=== PATIENT | female | born 1990 | race Caucasian/White ===

== ENCOUNTER → 2018-02-13 10:08 | Outpatient (CLI) | payer MEDICAID, SELFPAY ==
[2018-02-13 10:53] LABS: Hematocrit 35.2 % (37-47); Hemoglobin 11.7 g/dl (12.0-15.0); Mean Corp Hgb Conc 33.2 g/gl (32-36); Mean Corpuscular Hgb 31.6 pg (27.0-32.0); Mean Corpuscular Volume 95.1 fL (81-99); Mean Platelet Vol. 10.3 fl (6.2-12.0); Platelet Count 264 K/mm3 (150-450); RBC Distribution Width CV 14.1 % (11.6-14.6); RBC Distribution Width SD 46.7 fl (35.1-43.9); White Blood Count 10.4 K/mm3 (4.4-11.0)
[2018-02-13 11:00] LABS: Scan Indicated on CBC? Y/N NO
[2018-02-13 11:15] LABS: Glucose Challenge Gest 1H 50g 120 mg/dL (70-140)
--- OUTSIDE RECORDS SUMMARY | 2018-04-01 01:07 | XMS RPT_ITS ---
:1990 Author Organization OHIP Care Team Providers Name Role Phone KANE MOREIRA (RES) Attending Unavailable SAMSON, EARLINE E Admitting Unavailable SAMSON, EARLINE E Attending Unavailable SAMSON, EARLINE E Referring Unavailable SAMSON, EARLINE E Admitting Unavailable SAMSON, EARLINE E Attending Unavailable SAMSON, EARLINE E Admitting Unavailable SAMSON, EARLINE E Attending Unavailable MONTOYA, KIZZY Attending Unavailable PROVIDER, UNKNOWN Attending Unavailable Kiki Victoria Attending Unavailable JOSE ALBERTO, NERISSA (CLINICAL RESEARCH MANAGEMENT ASSOCIATE) Attending Unavailable MERHEB, BIRDIE Referring Unavailable JOSE ALBERTO, NERISSA (CLINICAL RESEARCH MANAGEMENT ASSOCIATE) Attending Unavailable JOSE ALBERTO, NERISSA (CLINICAL RESEARCH MANAGEMENT ASSOCIATE) Referring Unavailable JOSE ALBERTO, NERISSA (CLINICAL RESEARCH MANAGEMENT ASSOCIATE) Attending Unavailable JOSE ALBERTO, NERISSA (CLINICAL RESEARCH MANAGEMENT ASSOCIATE) Referring Unavailable JOSE ALBERTO, NERISSA (CLINICAL RESEARCH MANAGEMENT ASSOCIATE) Attending Unavailable SAMSON, EARLINE E Attending Unavailable SAMSON, EARLINE E Referring Unavailable JOSE ALBERTO, NERISSA (CLINICAL RESEARCH MANAGEMENT ASSOCIATE) Attending Unavailable SAMSON, EARLINE E Referring Unavailable SAMSON, EARLINE E Attending Unavailable JOSE ALBERTO, NERISSA (CLINICAL RESEARCH MANAGEMENT ASSOCIATE) Referring Unavailable KANE KERN Attending Unavailable KANE KERN Referring Unavailable JOSE ALBERTO, NERISSA (CLINICAL RESEARCH MANAGEMENT ASSOCIATE) Attending Unavailable JOSE ALBERTO, NERISSA (CLINICAL RESEARCH MANAGEMENT ASSOCIATE) Referring Unavailable ROJAS RENNER Attending Unavailable SAMSON, EARLINE E Attending Unavailable HARDIK, ZAFRA MARQUIS Referring Unavailable HARDIK, ZAFAR Primary Care Unavailable MD KANE MOREIRA Attending Unavailable MONTOYA, KIZZY Attending Unavailable IMCA Referring Unavailable ZAFAR DYE Primary Care Unavailable MONTOYA, KIZZY Attending Unavailable IMCA Referring Unavailable ZAFAR DYE Primary Care Unavailable PROBLEMS PROBLEMS DATE TYPE CONDITION / CODE ATTENDING STATUS SOURCE 02/13/2018 Unknown Z34.82 - Encounter Kiki Victoria Active [facility] for supervision of [facility] other normal Hospital , second Repository trimester / Z34.82(ICD-10) 11/22/2017 Active Other specified Unknown Active [facility] related [facility] Other conditions, second [place] trimester / Repository O26.892(ICD-10) 11/22/2017 Active Unspecified Unknown Active [facility] abdominal pain / Clinic Other R10.9(ICD-10) [place] [facility] Repository 11/22/2017 Active Nausea / Unknown Active [facility] R11.0(ICD-10) Clinic Other [place] Repository 10/31/2017 Active Sprain of sacroiliac MONTOYA, KIZZY Active [facility] joint, initial Clinic Other encounter / [place] S33.6XXA(ICD-10) Repository 01/17/2016 Active Other intervertebral MONTOYA, KIZZY Active [facility] disc displacement, Clinic Other lumbar region / [place] M51.26(ICD-10) Repository 10/31/2017 Admitting Unknown / MONTOYA, KIZZY Active [facility] UNK(Unknown) [facility] Repository 10/10/2017 Active Encounter for NA Active [facility] supervision of other Clinic Main normal , [place] first trimester / Repository Z34.81(ICD-10) 08/12/2017 Active Anal fistula / SAMSON, Active [facility] K60.3(ICD-10) EARLINE E Clinic Other [place] Repository 07/16/2017 Active Rectal abscess / SAMSON, Active [facility] K61.1(ICD-10) EARLINE E Clinic Other [place] Repository 07/13/2017 Active Other specified KANE MOREIRA Active [facility] diseases of anus and (RES) Clinic Other rectum / [place] K62.89(ICD-10) Repository 07/13/2017 Active Bacteriuria / NA Active [facility] R82.71(ICD-10) Clinic Other [place] Repository 07/13/2017 Active Unspecified NA Active [facility] condition associated Clinic Other with female genital [place] organs and menstrual Repository cycle / N94.9(ICD-10) PROCEDURES PROCEDURES No Procedure Records FoundRESULTS RESULTS CBC-COMPLETE BLOOD CNT Collected: 02/13/2018 Status: F Source: [place] NO DIFF 10:05 AM [facility] REPOSITORY TYPE CODE TESTS RESULT OUT OF RANGE REFERENCE UNITS LAB L100.1000 4.4-11.0 K/mm3 Normal WBC 10.4 LAB L100.1200 4.2-5.4 M/mm3 Low RBC 3.70 LAB L100.1300 12.0-15.0 g/dl Low HGB 11.7 LAB L100.1400 37-47 % Low HCT 35.2 LAB L100.1500 81-99 fL Normal MCV 95.1 LAB L100.1600 27.0-32.0 pg Normal MCH 31.6 LAB L100.1700 32-36 g/gl Normal MCHC 33.2 LAB L100.1810 11.6-14.6 % Normal RDW CV 14.1 LAB L100.1820 35.1-43.9 fl High RDW SD 46.7 LAB L100.1900 150-450 K/mm3 Normal PLT 264 LAB L100.2000 6.2-12.0 fl Normal MPV 10.3 Performed By: #### L100.0500 #### [facility] [address] [place], [place], [address] GLUCOSE CHALLENGE GEST Collected: 02/13/2018 Status: F Source: [place] 1H 50G 10:05 AM [facility] TYPE CODE TESTS RESULT OUT OF RANGE REFERENCE UNITS LAB L501.0250 70-140 mg/dL Normal GLU GEST 120 50g 1H Performed By: #### L501.0250 #### [facility] [address] [place], [place], [address] TYPE AND SCREEN Collected: 02/13/2018 Status: F Source: [place] 10:05 AM [facility] Order Comment: Reason for Type AND Screen/Red Cells: TYPE CODE TESTS RESULT OUT OF RANGE REFERENCE UNITS LAB B10.0800 A Normal BLOOD TYPE GEL POSITIVE LAB B100.4000 Normal Antibody NEGATIVE Screen Performed By: #### B101.7450 #### [facility] [address] [place], [place], [address] ED PROV NOTE Observed: 11/22/2017 Status: COMPLETED Source: [place] 7:41 PM CLINIC OTHER CAMPUS REPOSITORY HNO ID: [id number] Author: Moses Rivera DO Service: Emergency Medicine Author Type: Physician Type: ED Provider Notes Filed: 11/22/2017 9:23 PM Note Text: ED Provider Note Patient Name: Saranya Malave SERVICE DATE: 11/22/17 History Patient presents with: Bleeding With : no bleeding just cramping Abdominal Pain: RUQ 27-year-old female , history of elective approximately 10 years ago at reported 15 weeks gestation presents with abdominal cramping. Pain started this morning. Pain is localized to the right periumbilical region. It is intermittent worsening and relieved by nothing. Denies fevers chills sweats. Reports nausea without vomiting. Denies change in urinary or bowel habits. Denies any abnormal vaginal bleeding. She does report white discharge throughout which is increased over the past 24?48 hours. Patient denies any concern for STD. 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 - Perirectal abscess 07/2017 - Sprain, sacroiliac BWC PAST SURGICAL HISTORY Procedure Laterality Date - CRYOSURGERY - FISTULOTOMY SUBCUT 09/01/2017 Anal Fistulectomy - PAST SURGICAL HISTORY OF 09/01/2017 Rectal exam under anesthesia and fistulotomy, FAMILY HISTORY Problem Relation Age of Onset - Diabetes Maternal Grandmother - Diabetes Maternal Grandfather - Hypertension Maternal Grandfather - Hyperlipidemia Maternal Grandfather - Stroke Maternal Grandfather - Cancer Maternal Grandfather SKIN - Cancer Paternal Grandfather LUNG - Cancer Paternal Grandmother LUNG Social History Social History Main Topics - Smoking status: Former Smoker Types: Cigarettes Quit date: 10/15/2017 - Smokeless tobacco: Never Used Comment: light smoking - Alcohol use No Comment: occ - Drug use: No - Sexual activity: Not on file ALLERGIES No Known Allergies Review of Systems Constitutional: Negative. HENT: Negative. Eyes: Negative. Respiratory: Negative. Cardiovascular: Negative. Gastrointestinal: Positive for abdominal pain. Genitourinary: Positive for vaginal discharge. Musculoskeletal: Negative. Skin: Negative. Neurological: Negative. Psychiatric/Behavioral: Negative. Physical Exam BP 101/56 Pulse 73 Temp (Src) 98.3 (Oral) Resp 14 Wt 165 lb (74.8kg) SpO2 100% LMP 08/12/2017 Physical Exam Constitutional: She is oriented to person, place, and time. She appears well-developed and well-nourished. HENT: Head: Normocephalic and atraumatic. Eyes: Pupils are equal, round, and reactive to light. Conjunctivae and EOM are normal. No scleral icterus. Neck: Normal range of motion. Neck supple. Cardiovascular: Normal rate, regular rhythm, normal heart sounds and intact distal pulses. Exam reveals no gallop and no friction rub. No murmur heard. Pulmonary/Chest: Effort normal and breath sounds normal. No respiratory distress. She has no wheezes. She has no rales. She exhibits no tenderness. Abdominal: Soft. Bowel sounds are normal. She exhibits no distension and no mass. There is no tenderness. There is no rebound and no guarding. Genitourinary: Vaginal discharge found. Genitourinary Comments: Speculum exam reveals thin white vaginal discharge. Cultures obtained. No cervical erythema or friability. Manual exam reveals closed cervical os without cervical motion tenderness or adnexal tenderness or masses Musculoskeletal: Normal range of motion. She exhibits no edema or tenderness. Lymphadenopathy: She has no cervical adenopathy. Neurological: She is alert and oriented to person, place, and time. No cranial nerve deficit. Skin: Skin is warm and dry. No rash noted. No erythema. Psychiatric: She has a normal mood and affect. Her behavior is normal. Nursing note and vitals reviewed. Diagnostic Testing ED Labs Ordered and Reviewed COMP METABOLIC PANEL - Abnormal; Notable for the following: Result Value Ref Range Protein, Total 6.1 (*) 6.3 - 8.0 g/dL Albumin 3.7 (*) 3.9 - 4.9 g/dL Bilirubin, Total <0.1 (*) 0.2 - 1.3 mg/dL BUN 6 (*) 7 - 21 mg/dL Creatinine 0.48 (*) 0.58 - 0.96 mg/dL Sodium 134 (*) 136 - 144 mmol/L Potassium 3.6 (*) 3.7 - 5.1 mmol/L All other components within normal limits CBC + DIFF - Abnormal; Notable for the following: RBC 3.74 (*) 3.90 - 5.20 m/uL Hematocrit 34.2 (*) 36.0 - 46.0 % Abs Nobles 1.00 (*) <0.87 k/uL All other components within normal limits URINALYSIS - Abnormal; Notable for the following: Hemoglobin/Blood,Ur Trace (*) Negative All other components within normal limits HCG QUANTITATIVE - Abnormal; Notable for the following: hCG Quantitative, Blood 18,421.0 (*) <5.0 mU/mL All other components within normal limits URINE MICROSCOPIC - Abnormal; Notable for the following: Bacteria Few (*) 0 /HPF All other components within normal limits LIPASE BLD GC/CHLAMYDIA DNA DET TYPE + SCREEN TRICHOMONAS PREP BACT/TRISTAN VAG GRAM STAIN ED imaging studies ordered and reviewed Transabdominal US IMPRESSION: Single living intrauterine fetus with an estimated gestational age of 15 weeks and 3 days. Procedures ED Course / Clinical Impression Clinical Impressions as of Nov 22 2118 Abdominal pain during in second trimester Nausea Hypokalemia Vaginal discharge MDM / Disposition / Plan Stable upon arrival. No evidence of acute surgical process. Pelvic exam as noted above. Cultures obtained and sent. Declined IV fluids and analgesia or anti-emetics. Blood work grossly unremarkable. Transabdominal ultrasound shows single live intrauterine fetus at 15 weeks and 3 days. No significant leukocytosis noted. Lipase normal. Liver enzymes total bilirubin alkaline phosphatase all negative. Repeat abdominal exam once again without evidence of acute surgical process. Negative Martinez sign. No pain over McBurney's point. Patient be discharged home in stable condition with instructions on supportive care including rest aggressive fluid intake and Tylenol as needed. Will follow up with EXCHANGE OPERATOR within 2-3 days and return immediately with any new worsening or concerning symptoms. Patient updated and agreeable to current plan of care. All questions answered bedside. Discharge home. MDM The patient was DISCHARGED: Counseled patient regarding lab results AND radiology results AND need for follow-up. Discharged home with verbal and written instructions. They were instructed to return as needed for persistent or worsening symptoms or any new concerns. Condition at time of disposition: stable SIGNATURE: DO Moses Mott DO 11/22/172122 ED NOTE Observed: 11/22/2017 Status: COMPLETED Source: [place] 7:41 PM CLINIC OTHER CAMPUS REPOSITORY O ID: [id number] Author: Barbara Camacho (Medic) Service: Emergency Medicine Author Type: [employer] and [employer] Location Manager Type: ED Notes Filed: 11/24/2017 12:57 PM Note Text: Emergency Services: ED Call Back Questionnaire SERVICE DATE: 11/22/2017 Are you feeling better? Yes Any questions about discharge instructions and follow-up care? No Were you able to make a follow up appointment? Yes Do you have any further questions? No Is there anything that we could have done differently to improve your ED visit? No SIGNATURE: Barbara Camacho PATIENT NAME: Saranya Malave DATE: November 24, 2017 TIME: 12:57 PM ED NOTE Observed: 11/22/2017 Status: COMPLETED Source: [place] 7:40 PM CLINIC OTHER [place] REPOSITORY HNO ID: [id number] Author: Brinda Harris) ROMAN Farrell Service: (none) Author Type: Registered Nurse Type: ED Notes Filed: 11/22/2017 7:41 PM Note Text: Discharge instructions d/w pt at bedside. Stated understanding with no further questions for this nurse. Encouraged f/u with PCP and referring doctors given. Stated understanding. Prescription(S) were given X0. ED NOTE Observed: 11/22/2017 Status: COMPLETED Source: [place] 7:23 PM [facility] OTHER [place] REPOSITORY HNO ID: [id number] Author: Brinda Farrell RN Service: (none) Author Type: Registered Nurse Type: ED Notes Filed: 11/22/2017 7:23 PM Note Text: Dr. Rivera back in at bedside with update and to discuss plan of care. Advised pt and family of results in ED, they agree and verbalize understanding. US PREG TRANSABD >14 Observed: 11/22/2017 Status: F Source: [place] 6:49 PM CLINIC OTHER [place] REPOSITORY * * *Final Report* * * DATE OF EXAM: Nov 22 2017 6:49PM TOM 1036 - US PREG TRANSABD >14 WEEKS LTD / PROCEDURE REASON: Pelvic pain, positive beta-HCG, proof operator etiol suspected * * * * Physician Interpretation * * * * PROCEDURE: US PREG TRANSABD >14 WEEKS LTD INDICATION: Pelvic pain, positive beta-HCG, proof operator etiol suspected TECHNIQUE: Multiple sonographic images of the gravid uterus were obtained and stored in a permanent archive. COMPARISON: 10/10/17. FINDINGS: There is a single living intrauterine fetus in a breech position with heart rate documented at 152 beats per minutes. The placenta is posterior. Amniotic fluid volume is within normal limits with an YANETH equal to 12.2 cm. measurements give an estimated gestational age of 15 weeks and 6 days +/- 1 week. There is been satisfactory interval growth compared to the prior study anatomic survey was not performed but no gross anomaly is evident. IMPRESSION: Single living intrauterine fetus with an estimated gestational age of 15 weeks and 3 days. Vegetable Trimmer: MICHELE Transcribe Date/Time: Nov 22 2017 6:53P Dictated by : LAINA DOHERTY MD This examination was interpreted and the report reviewed and electronically signed by: LAINA DOHERTY MD on Nov 22 2017 6:55PM EST [id number] ED NOTE Observed: 11/22/2017 Status: COMPLETED Source: [place] 6:11 PM [facility] OTHER [place] REPOSITORY HNO ID: [id number] Author: Brinda CeballosRn) ROMAN Farrell Service: (none) Author Type: Registered Nurse Type: ED Notes Filed: 11/22/2017 6:11 PM Note Text: U/S at bedside at this time. Observed: 11/22/2017 Status: F Source: [place] BACT/CAND VAG [facility] 5:32 PM [facility] REPOSITORY Smear Result - BACTERIAL VAGINOSIS RESULT: Stain results consistent with normal vaginal jonathan. No Yeast observed Rare Polymorphonuclear leukocytes Moderate Epithelial cells Performed By: #### BVCNSM #### [place] [address] Observed: 11/22/2017 Status: F Source: [place] TRICHOMONAS PREP 5:31 PM [facility] REPOSITORY Smear Result - Negative for Trichomonas vaginalis antigen Performed By: #### TRICHO #### [facility] [address] [place], [place] [id number] GC/CHLAMYDIA AMPLIF Collected: 11/22/2017 Status: F Source: [place] 5:30 PM [facility] REPOSITORY TYPE CODE TESTS RESULT OUT OF REFERENCE UNITS RANGE LAB GCCTSR GC/Chlam Amp Vaginal Source LAB GCAMPL GC Negative Amplification for Neisseria gonorrhoeae by amplification. LAB CLAMPL Chlamydia Negative Amplif for Chlamydia trachomatis by amplification. Performed By: #### GCCT #### [facility] [address] [place] [address] [place] [address] URINALYSIS Collected: 11/22/2017 Status: F Source: [place] 5:29 PM [facility] OTHER [place] REPOSITORY TYPE CODE TESTS RESULT OUT OF RANGE REFERENCE UNITS LAB UCOL Yellow Color Yellow LAB [facility] Clear Clarity Clear LAB UGLUC Negative mg/dL Glucose, Urine Negative LAB UBIL Negative Bilirubin, Urine Negative LAB UKET Negative Ketones, Urine Negative LAB USPG 1.001-1.029 Specific [place], Ur <=1.005 LAB UHGB Negative Abnormal Hemoglobin/Blood, Trace Alert Ur LAB UPH 5.0-8.0 pH 6.5 LAB UPROT Negative mg/dL Protein, Urine Negative LAB UUROB 0.2-1.0 Urobilinogen 0.2 LAB UNITR Negative Nitrites Negative LAB ULKEST Negative Leukest Negative Performed By: #### UA, UAMIC #### [facility] [address] [place] [address] URINE MICROSCOPIC Collected: 11/22/2017 Status: F Source: [place] (FOR LAB USE ONLY) 5:29 PM CLINIC OTHER CAMPUS REPOSITORY TYPE CODE TESTS RESULT OUT OF REFERENCE UNITS RANGE LAB UWBC 0-5 /HPF WBC 0-5 LAB URBC 0-3 /HPF RBC 0-3 LAB UCAST 0 /LPF Cast SEE COMMENT Result Comment: 0 LAB UBACT 0 /HPF Abnormal Bacteria Alert Few LAB UEPI /HPF Epithelial Cells SEE COMMENT Result Comment: 0-5 Squamous Epithelial Cells Performed By: #### UA, UAMIC #### [facility] [address] [place] [address] CBC AND DIFFERENTIAL Collected: 11/22/2017 Status: F Source: [place] 5:12 PM CLINIC OTHER CAMPUS REPOSITORY TYPE CODE TESTS RESULT OUT OF REFERENCE UNITS RANGE LAB WBC 3.70-11.00 k/uL WBC 10.06 LAB RBC 3.90-5.20 m/uL Low RBC 3.74 LAB HGB 11.5-15.5 g/dL Hemoglobin 11.5 LAB HCT 36.0-46.0 % Low Hematocrit 34.2 LAB MCV 80.0-100.0 fL MCV 91.4 LAB MCH 26.0-34.0 pG MCH 30.7 LAB MCHC 30.5-36.0 g/dL MCHC 33.6 LAB RDWCV 11.5-15.0 % RDW-CV 13.9 LAB PLTCT 150-400 k/uL Platelet Count 223 LAB MPV 9.0-12.7 fL MPV 9.8 LAB ANEUT % Neut% 73.2 LAB AANEUT 1.45-7.50 k/uL Abs Neut 7.36 LAB ALYMP % Lymph% 15.9 LAB AALYMP 1.00-4.00 k/uL Abs Lymph 1.60 LAB AMONO % Nobles% 9.9 LAB AAMONO <0.87 k/uL Abs Nobles High 1.00 LAB AEOS % Eosin% 0.8 LAB AAEOS <0.46 k/uL Abs Eosin 0.08 LAB ABASO % Baso% 0.2 LAB AABASO <0.11 k/uL Abs Baso <0.03 Performed By: #### CBCDIF, CMP, LIPA #### [facility] [address] [facility] [phone] COMP METABOLIC PANEL Collected: 11/22/2017 Status: F Source: [place] 5:12 PM CLINIC OTHER CAMPUS REPOSITORY TYPE CODE TESTS RESULT OUT OF REFERENCE UNITS RANGE LAB TP 6.3-8.0 g/dL Low Protein, Total 6.1 LAB ALB 3.9-4.9 g/dL Low Albumin 3.7 LAB CA 8.5-10.2 mg/dL Calcium, Total 8.9 LAB TBIL 0.2-1.3 mg/dL Low Bilirubin, Total <0.1 LAB ALKP 32-117 U/L Alkaline Phosphatase 42 LAB AST 13-35 U/L AST 14 LAB GLU 74-99 mg/dL Glucose 85 Result Comment: The [place] Diabetes Association (ADA) provides guidance for cutoff values for fasting glucose and random glucose. The ADA defines fasting as no caloric intake for at least 8 hours. Fas ting plasma glucose results between 100 to 125 mg/dL indicate increased risk for diabetes (prediabetes). Fasting plasma glucose results greater than or equal to 126 mg/dL meet the criteria for diagnosis of diabetes. In the absence of unequivocal hyperglycemia, results should be confirmed by repeat testing. In a patient with classic symptoms of hyperglycemia or hyperglycemic crisis, random plasma glucose results greater than or equal to 200 mg/dL meet the criteria for diagnosis of diabetes. Reference: Standards of Medical Care in Diabetes 2016, [place] [employer] Association. Diabetes Care. 2016.39(Suppl 1). LAB BUN 7-21 mg/dL BUN Low 6 LAB CRET 0.58-0.96 mg/dL Creatinine Low 0.48 LAB NA 136-144 mmol/L Sodium Low 134 LAB K 3.7-5.1 mmol/L Potassium Low 3.6 LAB CL 97-105 mmol/L Chloride 101 LAB CO2 22-30 mmol/L CO2 23 LAB AGAP 9-18 mmol/L Anion Gap 10 LAB ALT 7-38 U/L ALT 10 LAB GFRAA eGFR- Amer. >60 LAB GFRNAA . eGFR-All Other Races >60 Result Comment: eGFR (Estimated GFR) Units of measure: mL/min/1.73 meters squared eGFR is derived from the reexpressed MDRD Study equation using the following parameters: serum creatinine, age, gender and race. The creatinine assay has been calibrated to be traceable to IDMS. An eGFR <60 mL/min/1.73m2 for >3 months is consistent with chronic kidney disease. Refer to KDOQI guidelines for clinical interpretation. In patients with unstable renal function, e.g. those with acute kidney injury, the eGFR may not accurately reflect actual GFR. Performed By: #### CBCDIF, CMP, LIPA #### [facility] [address] LIPASE Collected: 11/22/2017 Status: F Source: [place] 5:12 PM CLINIC OTHER CAMPUS REPOSITORY TYPE CODE TESTS RESULT OUT OF REFERENCE UNITS RANGE LAB LIPA 16-61 U/L Lipase 19 Performed By: #### CBCDIF, CMP, LIPA #### [facility] [address] TYPE AND SCR,PRENATL Collected: 11/22/2017 Status: F Source: [place] 5:12 PM CLINIC OTHER CAMPUS REPOSITORY TYPE CODE TESTS RESULT OUT OF REFERENCE UNITS RANGE LAB %ABR A ABO/RH(D) POSITIVE LAB % Antibody NEG Screen Performed By: #### TSPN #### [facility] [address] [place], [place] [phone] ED NOTE Observed: 11/22/2017 Status: COMPLETED Source: [place] 4:57 PM CLINIC OTHER CAMPUS REPOSITORY HNO ID: [id number] Author: Brinda CeballosRn) Jami, RN Service: (none) Author Type: Registered Nurse Type: ED Notes Filed: 11/22/2017 4:57 PM Note Text: Dr. Rivera at bedside at this time. ED NOTE Observed: 11/22/2017 Status: COMPLETED Source: [place] 4:38 PM CLINIC OTHER CAMPUS REPOSITORY HNO ID: [id number] Author: Eli CeballosRn) Rona, ROMAN Service: (none) Author Type: Registered Nurse Type: ED Notes Filed: 11/22/2017 4:39 PM Note Text: Patient presents to the ED with cramping that started this am. Patient is 15 weeks . HCG, QUANTITATIVE BL Collected: 11/22/2017 Status: F Source: [place] 3:12 PM CLINIC OTHER CAMPUS REPOSITORY TYPE CODE TESTS RESULT OUT OF REFERENCE UNITS RANGE LAB HCGQT <5.0 mU/mL [place]CG, [place] [address].0 Result Comment: QUANTITATIVE HCG NORMAL RANGES Weeks of Gestation (Weeks Since LMP) 3 Weeks (5.8-71.2 mIU/mL) 4 Weeks (9.5-750 mIU/mL) 5 Weeks (217-7138 mIU/mL) 6 Weeks (158-25722 mIU/mL) 7 Weeks (3697-515465 mIU/mL) 8 Weeks (77645-746292 mIU/mL) 9 Weeks (63013-614585 mIU/mL) 10 Weeks (56460-170395 mIU/mL) 12 Weeks (02002-036126 mIU/mL) Referenced to 4th IS of [facility] WITH [facility] Performed By: #### HCGQT #### [facility] [address] [place] [address] PROGRESS Observed: 10/31/2017 Status: COMPLETED Source: [place] 10:50 AM CLINIC OTHER CAMPUS REPOSITORY HNO ID: [id number] Author: Kizzy Montoya Service: (none) Author Type: Physician Type: Progress Notes Filed: 10/31/2017 11:29 AM Note Text: Subjective Saranya Malave is a 27 year old female who presents with pain in lumbar area and right back and leg since a work related injury that occurred on . 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 She has seen several doctors over the years, and since 2014, had been seeing Dr loyd for epidural injections as needed. She has done PT several times. She last had an L5, S1 selective nerve block with Dr Loyd in 2015 and got signficant relief with the ESIs, as she did each time. She was doing quite well until the end of July 2017, and the pain gradually increased again, no injury or trauma. The pain is the same as it has been off and on since the injury. She has some mild constant aching at all times in the right lumbar area. It is worse with changing positions and with getting in and out of the car and with going up steps. SHe gets a catch in the right lumbar area and she cannot advance the leg until she readjusts her body. The injections take care of this pain. She cannot have any injections for awhile since she is 13 weeks . 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 She last had imaging in 2013. . Results MRI LUMBAR SPINE WO CONTRAST (Order [id number]) Patient Info Patient Name Sex Saranya Almaraz ([id number]) Female 1990 11w3d Result Date - 07/02/2013 Results * * *Final Report* * * ? DATE OF EXAM: July ?2013 ?7:35PM ? MDM ? 0560 ?- ?MRI LUMBAR SPINE WO CONTRAST ?/ PROCEDURE REASON: si joint strain, lumbar strain ?* ?* ?* Physician Interpretation * ?* ?* COMPARISONS: None. ? HISTORY: Lumbar pain. ?Prior trauma in April 2013. ? TECHNIQUE: MRI lumbar spine without contrast. ? RESULT: Counting reference: For purposes of dictation inferior most lumbar intervertebral disk is taken as L5-S1 and prior to surgical intervention correlation with plain radiograph is warranted. ?No structural or anatomic anomalies. ? MRI LUMBAR SPINE: Decreased disc height and signal with posterior bulge at L5-S1 indicating disc degeneration. ?Remaining intervertebral discs are normal in height and signal. ?Remaining alignment, vertebral height, marrow signal, central canal, thecal sac, spinal cord signal/caliber and cauda equina are normal. ?No fracture or dislocation or subluxation. ? Soft tissues and muscle planes are unremarkable. ?Patent flow voids. ? L1 -- 2: Central canal and neural foramina are normal. ? L2 -- 3: Central canal and neural foramina are normal. ? L3 -- 4: Central canal and neural foramina are normal. ? L4 -- 5: Central canal and neural foramina are normal. ? L5 -- S1: Decreased disc height and signal diffuse disc bulge with central to left paracentral annular tear and small protrusion. ?Central canal and neural foramina are patent. IMPRESSION: L5-S1 level minimal disc degeneration. ?Remaining lumbar spine is normal. 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 HENT: Negative. Eyes: Negative. Respiratory: Negative. Cardiovascular: Negative. Gastrointestinal: Positive for nausea. Genitourinary: Negative. Musculoskeletal: Negative. Skin: Negative. Neurological: Positive for headaches. Endo/Heme/Allergies: Negative. Psychiatric/Behavioral: Negative. 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 - Perirectal abscess 07/2017 - Sprain, sacroiliac C PAST SURGICAL HISTORY Procedure Laterality Date - CRYOSURGERY - FISTULOTOMY SUBCUT 09/01/2017 Anal Fistulectomy - PAST SURGICAL HISTORY OF 09/01/2017 Rectal exam under anesthesia and fistulotomy, FAMILY HISTORY Problem Relation Age of Onset - Diabetes Maternal Grandmother - Diabetes Maternal Grandfather - Hypertension Maternal Grandfather - Hyperlipidemia Maternal Grandfather - Stroke Maternal Grandfather - Cancer Maternal Grandfather SKIN - Cancer Paternal Grandfather LUNG - Cancer Paternal Grandmother LUNG Social History Marital status: Single Spouse name: Years of education: Number of children: Social History Main Topics Smoking status: Former Smoker Packs/day: 0.00 Years: 0.00 Types: Cigarettes Quit date: 10/15/2017 Smokeless tobacco: Never Used Comment: light smoking Alcohol use: No Comment: occ Drug use: No Other Topics Concern Caffeine Concern Yes Comment:alot 2-3pots of coffee a day Special Diet No Comment:regular Exercise Yes Comment:walk dog Current Meds ondansetron (ZOFRAN) 4 mg tablet Take 4 mg by mouth every 8 hours as needed. NIFEdipine 0.2% topical ointment Nifedipine 0.2% plus Lidocaine 2 % Ointment Insert into anus with applicator- Apply pea-sized amount twice a day and following Bowel movement promethazine (PHENERGAN) 25 mg tablet Take 1 tablet by mouth every 6 hours as needed for Nausea/Vomiting. nystatin (NYSTOP) powder Apply 1 application to affected area four times daily. lidocaine (XYLOCAINE) 2 % jelly Lidocaine and bacitracin 1:1 ratio mix . Apply to rectal area as directed 4 times a day. 60 gram tube. one refill cetirizine (ZYRTEC) 10 mg tablet Take 10 mg by mouth. Objective Ht 5' 4 (1.63m) Wt 158 lb (71.7kg) LMP 08/12/2017 BMI 27.11 kg/(m2). Physical Exam Constitutional: She is oriented to person, place, and time and well-developed, well-nourished, and in no distress. HENT: Head: Normocephalic. Cardiovascular: Normal rate. Pulmonary/Chest: Effort normal. Musculoskeletal: Lumbar back: She exhibits decreased range of motion, tenderness, bony tenderness and pain. She exhibits no swelling, no edema, no deformity, no laceration and no spasm. She has increased right lumbar pain with extension and right side bending. Seated SLR at 60 deg causes increased right lumbar pain. She is very tender to palpation right sacroiliac joint. +FABERs right side. + Nachla's. Neurological: She is alert and oriented to person, place, and time. She has normal motor skills, normal sensation, normal strength and normal reflexes. She displays no weakness and no atrophy. She exhibits normal muscle tone. She has a normal Straight Leg Raise Test. Gait normal. Gait normal. GCS score is 15. Normal heel, toe walk. Skin: Skin is warm and dry. ASSESSMENT/PLAN: 1. Displacement of lumbar intervertebral disc without myelopathy - ICD9: 722.10, ICD10: M51.26 (primary diagnosis) The pain that she has been having since the work related injury is flaring again. She cannot have any injections since she is , but needs to have some treatment since her pain is affecting her ability to function normally. C9 for chiropractic treatment with Dr Chavez, 12 sessions over 3 months. C23 for me to take over her claim. 2. Sprain of sacroiliac ligament, initial encounter - ICD9: 846.1, ICD10: S33.6XXA F/u after the treatment. Kizzy Montoya MD CNOV Observed: 10/31/2017 Status: COMPLETED Source: [place] 10:30 AM [facility] OTHER CAMPUS REPOSITORY Office Visit (SPAGBA) SARANYA MALAVE ([id number]) 1990 F Date Time Provider Department 10/31/17 10:30 AM KIZZY MONTOYA During your visit today, we recorded the following information about you: Weight Height 71.7 kg 1.626 m Kizzy Montoya MD 10/31/2017 11:29 AM Signed Subjective Saranya Malave is a 27 year old female who presents with pain in lumbar area and right back and leg since a work related injury that occurred on . 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 She has seen several doctors over the years, and since 2014, had been seeing Dr loyd for epidural injections as needed. She has done PT several times. She last had an L5, S1 selective nerve block with Dr Loyd in 2015 and got signficant relief with the ESIs, as she did each time. She was doing quite well until the end of July 2017, and the pain gradually increased again, no injury or trauma. The pain is the same as it has been off and on since the injury. She has some mild constant aching at all times in the right lumbar area. It is worse with changing positions and with getting in and out of the car and with going up steps. SHe gets a catch in the right lumbar area and she cannot advance the leg until she readjusts her body. The injections take care of this pain. She cannot have any injections for awhile since she is 13 weeks . 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 She last had imaging in 2013. . Results MRI LUMBAR SPINE WO CONTRAST (Order [id number]) Patient Info Patient Name Sex CAMERON MalaveSaranya ([id number]) Female 1990 11w3d Result Date - 07/02/2013 Results * * *Final Report* * * ? DATE OF EXAM: July ?7:35PM ? MDM ? 0560 ?- ?MRI LUMBAR SPINE WO CONTRAST ?/ PROCEDURE REASON: si joint strain, lumbar strain ?* ?* ?* Physician Interpretation * ?* ?* COMPARISONS: None. ? HISTORY: Lumbar pain. ?Prior trauma in April 2013. ? TECHNIQUE: MRI lumbar spine without contrast. ? RESULT: Counting reference: For purposes of dictation inferior most lumbar intervertebral disk is taken as L5-S1 and prior to surgical intervention correlation with plain radiograph is warranted. ?No structural or anatomic anomalies. ? MRI LUMBAR SPINE: Decreased disc height and signal with posterior bulge at L5-S1 indicating disc degeneration. ?Remaining intervertebral discs are normal in height and signal. ?Remaining alignment, vertebral height, marrow signal, central canal, thecal sac, spinal cord signal/caliber and cauda equina are normal. ?No fracture or dislocation or subluxation. ? Soft tissues and muscle planes are unremarkable. ?Patent flow voids. ? L1 -- 2: Central canal and neural foramina are normal. ? L2 -- 3: Central canal and neural foramina are normal. ? L3 -- 4: Central canal and neural foramina are normal. ? L4 -- 5: Central canal and neural foramina are normal. ? L5 -- S1: Decreased disc height and signal diffuse disc bulge with central to left paracentral annular tear and small protrusion. ?Central canal and neural foramina are patent. IMPRESSION: L5-S1 level minimal disc degeneration. ?Remaining lumbar spine is normal. 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 HENT: Negative. Eyes: Negative. Respiratory: Negative. Cardiovascular: Negative. Gastrointestinal: Positive for nausea. Genitourinary: Negative. Musculoskeletal: Negative. Skin: Negative. Neurological: Positive for headaches. Endo/Heme/Allergies: Negative. Psychiatric/Behavioral: Negative. 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 BW - Perirectal abscess 07/2017 - Sprain, sacroiliac BWC PAST SURGICAL HISTORY Procedure Laterality Date - CRYOSURGERY - FISTULOTOMY SUBCUT 09/01/2017 Anal Fistulectomy - PAST SURGICAL HISTORY OF 09/01/2017 Rectal exam under anesthesia and fistulotomy, FAMILY HISTORY Problem Relation Age of Onset - Diabetes Maternal Grandmother - Diabetes Maternal Grandfather - Hypertension Maternal Grandfather - Hyperlipidemia Maternal Grandfather - Stroke Maternal Grandfather - Cancer Maternal Grandfather SKIN - Cancer Paternal Grandfather LUNG - Cancer Paternal Grandmother LUNG Social History Marital status: Single Spouse name: Years of education: Number of children: Social History Main Topics Smoking status: Former Smoker Packs/day: 0.00 Years: 0.00 Types: Cigarettes Quit date: 10/15/2017 Smokeless tobacco: Never Used Comment: light smoking Alcohol use: No Comment: occ Drug use: No Other Topics Concern Caffeine Concern Yes Comment:alot 2-3pots of coffee a day Special Diet No Comment:regular Exercise Yes Comment:walk dog Current Meds ondansetron (ZOFRAN) 4 mg tablet Take 4 mg by mouth every 8 hours as needed. NIFEdipine 0.2% topical ointment Nifedipine 0.2% plus Lidocaine 2 % Ointment Insert into anus with applicator- Apply pea-sized amount twice a day and following Bowel movement promethazine (PHENERGAN) 25 mg tablet Take 1 tablet by mouth every 6 hours as needed for Nausea/Vomiting. nystatin (NYSTOP) powder Apply 1 application to affected area four times daily. lidocaine (XYLOCAINE) 2 % jelly Lidocaine and bacitracin 1:1 ratio mix . Apply to rectal area as directed 4 times a day. 60 gram tube. one refill cetirizine (ZYRTEC) 10 mg tablet Take 10 mg by mouth. Objective Ht 5' 4 (1.63m) Wt 158 lb (71.7kg) LMP 08/12/2017 BMI 27.11 kg/(m2). Physical Exam Constitutional: She is oriented to person, place, and time and well-developed, well-nourished, and in no distress. HENT: Head: Normocephalic. Cardiovascular: Normal rate. Pulmonary/Chest: Effort normal. Musculoskeletal: Lumbar back: She exhibits decreased range of motion, tenderness, bony tenderness and pain. She exhibits no swelling, no edema, no deformity, no laceration and no spasm. She has increased right lumbar pain with extension and right side bending. Seated SLR at 60 deg causes increased right lumbar pain. She is very tender to palpation right sacroiliac joint. +FABERs right side. + Nachla's. Neurological: She is alert and oriented to person, place, and time. She has normal motor skills, normal sensation, normal strength and normal reflexes. She displays no weakness and no atrophy. She exhibits normal muscle tone. She has a normal Straight Leg Raise Test. Gait normal. Gait normal. GCS score is 15. Normal heel, toe walk. Skin: Skin is warm and dry. ASSESSMENT/PLAN: 1. Displacement of lumbar intervertebral disc without myelopathy - ICD9: 722.10, ICD10: M51.26 (primary diagnosis) The pain that she has been having since the work related injury is flaring again. She cannot have any injections since she is , but needs to have some treatment since her pain is affecting her ability to function normally. C9 for chiropractic treatment with Dr Chavez, 12 sessions over 3 months. C23 for me to take over her claim. 2. Sprain of sacroiliac ligament, initial encounter - ICD9: 846.1, ICD10: S33.6XXA F/u after the treatment. Kizzy Montoya MD Referring Provider: SELF [200] Allergies As of Date: 10/31/2017 (No Known Allergies) Date Reviewed: 10/31/2017 Reviewed by: Radha ([facility]) Soto - Fully Assessed Reason for Visit: New Patient Evaluation [154] Low Back Pain [126] Hip Pain [136] Bwc (Worker's Comp) [4130] Reason For Visit History Recorded Primary Visit Diagnosis:Displacement of lumbar intervertebral disc without myelopathy [M51.26] Other Visit Diagnosis:Sprain of sacroiliac ligament, initial encounter [S33.6XXA] Prescriptions as of 10/31/2017 Sig: ONDANSETRON HCL 4 MG TABLET Take 4 mg by mouth every 8 ho* NIFEDIPINE 0.2% OINTMENT Nifedipine 0.2% plus Lidocain* Patient not taking: Reported on 10/31/2017 PROMETHAZINE 25 MG TABLET Take 1 tablet by mouth every * Patient not taking: Reported on 10/21/2017 NYSTATIN 100,000 UNIT/GRAM TO* Apply 1 application to affect* Patient not taking: Reported on 10/21/2017 LIDOCAINE 2 % MUCOSAL JELLY Lidocaine and bacitracin 1:1 * Patient not taking: Reported on 10/21/2017 CETIRIZINE 10 MG TABLET Take 10 mg by mouth. Problem List As Of Date 10/31/2017 Noted Resolved Oral contraception initial prescription [Z30.01*INVALID FOR* Screening for malignant neoplasm of the cervix *INVALID FOR* Displacement of lumbar intervertebral disc with*INVALID FOR* Perirectal abscess [K61.1] INVALID FOR* Cold intolerance [R68.89] INVALID FOR* Dry skin [L85.3] INVALID FOR* Anal fistula [K60.3] INVALID FOR* More... Sprain of sacroiliac ligament [S33.6XXA] INVALID FOR* Level of Service: NEW PATIENT VISIT LEVEL 4 [51742] Follow-up and Disposition History Recorded Encounter Status:Closed by KIZZY MONTOYA MD on 10/31/17 PROGRESS Observed: 10/21/2017 Status: COMPLETED Source: [place] 1:20 PM [facility] [place] REPOSITORY O ID: [id number] Author: Earline Samson Service: (none) Author Type: Physician Type: Progress Notes Filed: 10/21/2017 1:28 PM Note Text: HPI: Saranya returns in f/u of rectal pain. 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 She continues to have rectal pain with bowel movements. She has tried to increase her fiber but has not been regular with it. EXAM: LMP 08/12/2017 Evidence of an anterior anal fissure where her fistulotomy site was present. This may represent scar tissue. No evidence for infection. PATHOLOGY: None ASSESSMENT: (K60.2) Anal fissure (primary encounter diagnosis) Saranya returns in follow-up of her fistulotomy. She is in her first trimester . She continues to have rectal pain. She appears to have a fissure at her fistulotomy site. There is no evidence for recurrent infection. I will start her on nifedipine ointment if safe in . This may take 6 weeks for the wound to completely heal. She was instructed on the importance of a high-fiber diet and fiber supplement. She will be returning to see me as needed. Office Visit on 10/21/17 -ondansetron (ZOFRAN) 4 mg tablet Earline Samson MD CNOV Observed: 10/21/2017 Status: COMPLETED Source: [place] 12:45 PM [facility] REPOSITORY Office Visit (MARIA GUADALUPE) SARANYA MALAVE ([id number]) 1990 F Date Time Provider Department 10/21/17 12:45 PM EARLINE SAMSON During your visit today, we recorded the following information about you: Earline Samson MD 10/21/2017 1:28 PM Signed HPI: Saranya returns in f/u of rectal pain. 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 She continues to have rectal pain with bowel movements. She has tried to increase her fiber but has not been regular with it. EXAM: LMP 08/12/2017 Evidence of an anterior anal fissure where her fistulotomy site was present. This may represent scar tissue. No evidence for infection. PATHOLOGY: None ASSESSMENT: (K60.2) Anal fissure (primary encounter diagnosis) Saranya returns in follow-up of her fistulotomy. She is in her first trimester . She continues to have rectal pain. She appears to have a fissure at her fistulotomy site. There is no evidence for recurrent infection. I will start her on nifedipine ointment if safe in . This may take 6 weeks for the wound to completely heal. She was instructed on the importance of a high-fiber diet and fiber supplement. She will be returning to see me as needed. Office Visit on 10/21/17 -ondansetron (ZOFRAN) 4 mg tablet Earline Samson MD Referring Provider: ZAFAR DYE [[id number]] Allergies As of Date: 10/21/2017 (No Known Allergies) Date Reviewed: 10/21/2017 Reviewed by: Elizabeth Jensen Ma - Fully Assessed Reason for Visit: Post Op [174] Cmt: 09/01/17 anal fissure doing well Reason For Visit History Recorded Primary Visit Diagnosis:Anal fissure [K60.2] Prescriptions as of 10/21/2017 Sig: ONDANSETRON HCL 4 MG TABLET Take 4 mg by mouth every 8 ho* PROMETHAZINE 25 MG TABLET Take 1 tablet by mouth every * Patient not taking: Reported on 10/21/2017 NYSTATIN 100,000 UNIT/GRAM TO* Apply 1 application to affect* Patient not taking: Reported on 10/21/2017 LIDOCAINE 2 % MUCOSAL JELLY Lidocaine and bacitracin 1:1 * Patient not taking: Reported on 10/21/2017 CETIRIZINE 10 MG TABLET Take 10 mg by mouth. Medication notes this encounter ONDANSETRON HCL 4 MG TABLET >> Elizabeth Jensen Ma 10/21/2017 12:37 PM >> ELIZABETH JENSEN MA Oct 21, 2017 12:37 PM Prn Problem List As Of Date 10/21/2017 Noted Resolved Oral contraception initial prescription [Z30.01*INVALID FOR* Screening for malignant neoplasm of the cervix *INVALID FOR* Displacement of lumbar intervertebral disc with*INVALID FOR* Perirectal abscess [K61.1] INVALID FOR* Cold intolerance [R68.89] INVALID FOR* Dry skin [L85.3] INVALID FOR* Anal fistula [K60.3] INVALID FOR* More... Encounter Status:Closed by EARLINE SAMSON MD on 10/21/17 TYPE AND SCR,PRENATL Collected: 10/17/2017 Status: F Source: [place] 11:28 AM [facility] OTHER CAMPUS REPOSITORY TYPE CODE TESTS RESULT OUT OF REFERENCE UNITS RANGE LAB %ABR A ABO/RH(D) POSITIVE LAB % Antibody NEG Screen Performed By: #### TSPN #### [facility] [address] [place] [address] GC/CHLAMYDIA AMPLIF Collected: 10/17/2017 Status: F Source: [place] 11:28 AM [facility] [place] REPOSITORY TYPE CODE TESTS RESULT OUT OF REFERENCE UNITS RANGE LAB GCCTSR GC/Chlam Amp Vaginal Source LAB GCAMPL GC Negative Amplification for Neisseria gonorrhoeae by amplification. LAB CLAMPL Chlamydia Negative Amplif for Chlamydia trachomatis by amplification. Performed By: #### GCCT #### [facility] [address] [place] [address] [place] [address] CBC Collected: 10/17/2017 Status: F Source: [place] 11:22 [facility] REPOSITORY TYPE CODE TESTS RESULT OUT OF REFERENCE UNITS RANGE LAB WBC 3.70-11.00 k/uL WBC 9.26 LAB RBC 3.90-5.20 m/uL RBC 4.17 LAB HGB 11.5-15.5 g/dL Hemoglobin 12.7 LAB HCT 36.0-46.0 % Hematocrit 39.4 LAB MCV 80.0-100.0 fL MCV 94.5 LAB MCH 26.0-34.0 pG MCH 30.5 LAB MCHC 30.5-36.0 g/dL MCHC 32.2 LAB RDWCV 11.5-15.0 % RDW-CV 13.9 LAB PLTCT 150-400 k/uL Platelet Count 282 LAB MPV 9.0-12.7 fL MPV 10.8 LAB ABSNUC <0.01 k/uL Absolute nRBC <0.01 Performed By: #### CBC, SYPHGX, HBSAG, HIV12C, RUBIGG #### [place] [address] SYPHILIS IGG WITH Collected: 10/17/2017 Status: F Source: [facility] 11:22 [facility] REPOSITORY TYPE CODE TESTS RESULT OUT OF REFERENCE UNITS RANGE LAB SYPHQL Nonreactive Syphilis IgG, Nonreactive Qual Result Comment: No serological evidence of infection with T. pallidum. LAB SYPHLG AI Syphilis IgG <0.2 Result Comment: Antibody index is interpreted as follows: Non reactive SPECIMENS <=0.8 Weak reactive SPECIMENS 0.9 to 5.9 Reactive SPECIMENS >=6.0 Performed By: #### CBC, SYPHGX, HBSAG, HIV12C, RUBIGG #### [place] [address] HEPATITIS B SURF. AG Collected: 10/17/2017 Status: F Source: [place] 11:22 [facility] REPOSITORY TYPE CODE TESTS RESULT OUT OF REFERENCE UNITS RANGE LAB HBSAG Negative Hepatitis B Negative Surf. Ag Performed By: #### CBC, SYPHGX, HBSAG, HIV12C, RUBIGG #### [place] [id number] [place] [address] HIV 12 COMBO (AG/AB) Collected: 10/17/2017 Status: F Source: [place] 11:22 [facility] REPOSITORY TYPE CODE TESTS RESULT OUT OF REFERENCE UNITS RANGE LAB HVAGAB Non Reactive HIV Non Reactive 12 Ag/Ab Result Comment: (NOTE) HIV Information: [place] Rev. Code 3701.243(E): This information has been disclosed to you from confidential records protected from disclosure by state law. You shall make no further disclosure of this information without the specific, written, and informed release of the individual to whom it pertains, or as otherwise permitted by state law. A general authorization for the release of medical or other information is not sufficient for the purpose of the release of HIV test results or diagnoses. Performed By: #### CBC, SYPHGX, HBSAG, HIV12C, RUBIGG #### [place] [id number] [place] [phone] RUBELLA IGG ANTIBODY Collected: 10/17/2017 Status: F Source: [place] 11:[address] [place] [address] REPOSITORY TYPE CODE TESTS RESULT OUT OF RANGE REFERENCE UNITS LAB RUBGQL Negative Abnormal Rubella IgG Positive Alert Ab, Qual Result Comment: Sample is considered positive for IgG antibodies to rubella virus. A positive result indicates previous exposure to Rubella virus or vaccination. LAB RUBQNT Index Value Rubella IgG Ab 3.54 Result Comment: Index values are interpreted as follows: Negative specimens <0.90 Equivocol specimens 0.90 to 0.99 Positive specimens >0.99 The magnitude of the measured result is not indicative of the amount of antibody present. Performed By: #### CBC, SYPHGX, HBSAG, HIV12C, RUBIGG #### [place] [id number] [place] [address] CYTOLOGY Observed: 10/17/2017 Status: F Source: [place] 11:22 [facility] REPOSITORY Specimen originated from [facility] Specimen #: [id number] Submitting Physician: ROJAS RENNER MD SPECIMEN SUBMITTED A: CERVICAL, SCREENING, FLUID FINAL DIAGNOSIS A. CERVICAL, SCREENING, FLUID Satisfactory for interpretation. Negative for intraepithelial lesion or malignancy. This specimen has been analyzed by the ThinPrep Imaging System, an automated imaging and review system, which assists the laboratory in evaluating cells on ThinPrep Pap tests. Following automated imaging, selected martinez from every slide are reviewed by a highway maintainer. JAYJAY Stern(ASCP) (Electronic Signature) CLINICAL DATA - INDICATE WEEKS, HPV Testing: Yes, Reflex HPV for ASCUS Date of Last Menstrual Period: 08/12/2017() STAINS A: CERVICAL, SCREENING, FLUID THIN PREP MAKEUP ARTISTRY INSTRUCTOR Miley Tijerina M.D., Director Of Therapy Services Date of Report: 10/29/2017 Date of Procedure: 10/17/2017 Date of Receipt: 10/20/2017 Submitted by: ROJAS RENNER MD Location: [facility] Diagnostic interpretation performed at [facility], [address] [place] [address]. The Pap Smear is a screening test for cervical cancer. False negative results occur with all screening tests, emphasizing the need for rescreening at recommended intervals, and clinical correlation. PROGRESS Observed: 10/17/2017 Status: COMPLETED Source: [place] 11:14 AM [facility] REPOSITORY HNO ID: [id number] Author: Rojas Renner Service: (none) Author Type: Physician Type: Progress Notes Filed: 10/17/2017 11:24 AM Note Text: INITIAL OB ASSESSMENT OB Provider: Rojas Renner MD HPI:Saranya Malave a 27 year old White female here to establish Obstetrical Care. Patient's last menstrual period was 08/12/2017 (approximate). from OB Dating Form. 9 3/7 weeks with an EDC of Estimated Date of Delivery: 05/19/18 Complaints: nausea Obstetric History T0 L0 SAB0 TAB0 Ectopic0 Multiple0 Live Births0 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 - Perirectal abscess 07/2017 - Sprain, sacroiliac [facility] PAST SURGICAL HISTORY Procedure Laterality Date - CRYOSURGERY - FISTULOTOMY SUBCUT 09/01/2017 Anal Fistulectomy - PAST SURGICAL HISTORY OF 09/01/2017 Rectal exam under anesthesia and fistulotomy, Current Outpatient Prescriptions on File Prior to Visit: promethazine (PHENERGAN) 25 mg tablet Take 1 tablet by mouth every 6 hours as needed for Nausea/Vomiting. nystatin (NYSTOP) powder Apply 1 application to affected area four times daily. lidocaine (XYLOCAINE) 2 % jelly Lidocaine and bacitracin 1:1 ratio mix . Apply to rectal area as directed 4 times a day. 60 gram tube. one refill cetirizine (ZYRTEC) 10 mg tablet Take 10 mg by mouth. Current Facility-Administered Medications on File Prior to Visit: nystatin 100,000 unit/gram powd (MYCOSTATIN) ALLERGIES No Known Allergies 10/17/17 1102 BP: 120/72 BP Site: Right Arm BP Position: Sitting BP Cuff Size: Regular Adult Weight: 158 lb 12.8 oz (72 kg) GENERAL: pleasant female in no apparent distress DERMATOLOGY: Normal, without lesions and non-icteric NECK: Supple, full range of motion, no adenopathy and thyroid normal CHEST: Clear to auscultation Normal inspiratory effort Regular rate and rhythm No murmurs, clicks, rubs or gallops BREAST: soft, non-tender, symmetric, no dominant mass, normal nipple-areolar complex, no lymphadenopathy and no nipple discharge ABDOMEN: soft, non-tender, no masses and no hepatosplenomegaly NEURO: alert and oriented x3,exam grossly non-focal PELVIS: External genitalia normal without lesions.,Perineal body intact.,No vaginal or cervical lesions.,Cervix closed.,Uterus 10-12 week size.,No adnexal masses or tenderness. ASSESSMENT: 27 year old at 9 3/7 weeks PLAN: Routine care. Follow up in 4 weeks or sooner prn. Rojas Renner MD PROGRESS Observed: 10/15/2017 Status: COMPLETED Source: [place] 3:43 PM [facility] REPOSITORY HNO ID: [id number] Author: Nerissa Abrams Service: (none) Author Type: Nurse Practitioner Type: Progress Notes Filed: 10/15/2017 3:50 PM Note Text: ESTABLISHED PATIENT Saranya Malave is a 27 year old female presenting for Consult (Possible Preirectal Abscess). HISTORY OF PRESENT ILLNESS Saranya has a history of perirectal abscesses. She is newly and feels the abscess is beginning again. She has rectal pain and feels a bump, she also report some yellow drainage. She has done nothing to treat this. On exam she is tender at the posterior anus while in knee chest position. There is no induration or fluctuance however there is an anal fissure noted. Advised to increase fiber and fluids, twice daily Sitz baths. She will follow up in one week. 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 - Perirectal abscess 07/2017 - Sprain, sacroiliac [facility] PAST SURGICAL HISTORY Procedure Laterality Date - CRYOSURGERY - FISTULOTOMY SUBCUT 09/01/2017 Anal Fistulectomy - PAST SURGICAL HISTORY OF 09/01/2017 Rectal exam under anesthesia and fistulotomy, Social History Marital status: Single Spouse name: Years of education: Number of children: Social History Main Topics Smoking status: Current Every Day Smoker Packs/day: 0.00 Years: 0.00 Smokeless tobacco: Never Used Alcohol use: Yes Comment: occ Drug use: No Other Topics Concern Caffeine Concern Yes Comment:alot 2-3pots of coffee a day Special Diet No Comment:regular Exercise Yes Comment:walk dog Allergies: ALLERGIES No Known Allergies Medications: promethazine (PHENERGAN) 25 mg tablet Take 1 tablet by mouth every 6 hours as needed for Nausea/Vomiting. nystatin (NYSTOP) powder Apply 1 application to affected area four times daily. lidocaine (XYLOCAINE) 2 % jelly Lidocaine and bacitracin 1:1 ratio mix . Apply to rectal area as directed 4 times a day. 60 gram tube. one refill cetirizine (ZYRTEC) 10 mg tablet Take 10 mg by mouth. 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 General Appearance: Well appearing, alert, in no acute distress, well-hydrated, well nourished.. Skin: Skin color, texture, turgor normal, no suspicious rashes or lesions. Lungs: Lungs clear to auscultation. No wheezing, rhonchi, rales. Heart: RRR without murmur, gallop, or rubs. No ectopy. Rectal: Positive findings: anal fissure. Assessment IMPRESSION/PLAN Saranya has developed an anal fissure, she will take twice daily sitz baths and increase her fiber and fluid intake. We will hope to treat this conservatively due to her . CNOV Observed: 10/15/2017 Status: COMPLETED Source: [place] 11:40 AM [facility] REPOSITORY Office Visit (MARIA GUADALU[facility]) SARANYA MALAVE ([id number]) 1990 F Date Time Provider Department 10/15/17 11:40 AM NERISSA ABRAMS ([facility]) MARIA GUADALUPE During your visit today, we recorded the following information about you: Pulse Blood pressure Weight Height 84/minute 124/61 71.7 kg 1.626 m Nerissa Abrams APRN.CNP 10/15/2017 3:50 PM Signed ESTABLISHED PATIENT Saranya Malave is a 27 year old female presenting for Consult (Possible Preirectal Abscess). HISTORY OF PRESENT ILLNESS Saranya has a history of perirectal abscesses. She is newly and feels the abscess is beginning again. She has rectal pain and feels a bump, she also report some yellow drainage. She has done nothing to treat this. On exam she is tender at the posterior anus while in knee chest position. There is no induration or fluctuance however there is an anal fissure noted. Advised to increase fiber and fluids, twice daily Sitz baths. She will follow up in one week. 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 [facility] - Perirectal abscess 07/2017 - Sprain, sacroiliac [facility] PAST SURGICAL HISTORY Procedure Laterality Date - CRYOSURGERY - FISTULOTOMY SUBCUT 09/01/2017 Anal Fistulectomy - PAST SURGICAL HISTORY OF 09/01/2017 Rectal exam under anesthesia and fistulotomy, Social History Marital status: Single Spouse name: Years of education: Number of children: Social History Main Topics Smoking status: Current Every Day Smoker Packs/day: 0.00 Years: 0.00 Smokeless tobacco: Never Used Alcohol use: Yes Comment: occ Drug use: No Other Topics Concern Caffeine Concern Yes Comment:alot 2-3pots of coffee a day Special Diet No Comment:regular Exercise Yes Comment:walk dog Allergies: ALLERGIES No Known Allergies Medications: promethazine (PHENERGAN) 25 mg tablet Take 1 tablet by mouth every 6 hours as needed for Nausea/Vomiting. nystatin (NYSTOP) powder Apply 1 application to affected area four times daily. lidocaine (XYLOCAINE) 2 % jelly Lidocaine and bacitracin 1:1 ratio mix . Apply to rectal area as directed 4 times a day. 60 gram tube. one refill cetirizine (ZYRTEC) 10 mg tablet Take 10 mg by mouth. 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 General Appearance: Well appearing, alert, in no acute distress, well-hydrated, well nourished.. Skin: Skin color, texture, turgor normal, no suspicious rashes or lesions. Lungs: Lungs clear to auscultation. No wheezing, rhonchi, rales. Heart: RRR without murmur, gallop, or rubs. No ectopy. Rectal: Positive findings: anal fissure. Assessment IMPRESSION/PLAN Saranya has developed an anal fissure, she will take twice daily sitz baths and increase her fiber and fluid intake. We will hope to treat this conservatively due to her . Referring Provider: NERISSA ABRAMS ([facility]) [[id number]] Allergies As of Date: 10/15/2017 (No Known Allergies) Date Reviewed: 10/15/2017 Reviewed by: Nerissa ([facility]) Jose Alberto - Fully Assessed Reason for Visit: Consult [173] Cmt: Possible Preirectal Abscess Primary Visit Diagnosis:Anal fissure [K60.2] Prescriptions as of 10/15/2017 Sig: PROMETHAZINE 25 MG TABLET Take 1 tablet by mouth every * NYSTATIN 100,000 UNIT/GRAM TO* Apply 1 application to affect* LIDOCAINE 2 % MUCOSAL JELLY Lidocaine and bacitracin 1:1 * CETIRIZINE 10 MG TABLET Take 10 mg by mouth. Problem List As Of Date 10/15/2017 Noted Resolved Oral contraception initial prescription [Z30.01*INVALID FOR* Screening for malignant neoplasm of the cervix *INVALID FOR* Displacement of lumbar intervertebral disc with*INVALID FOR* Perirectal abscess [K61.1] INVALID FOR* Cold intolerance [R68.89] INVALID FOR* Dry skin [L85.3] INVALID FOR* Anal fistula [K60.3] INVALID FOR* More... Medications Discontinued During This Encounter ondansetron (ZOFRAN) 4 mg tablet 30 t* 2 10/09/2017 10/15/2017 Class: Print RX Route: ORAL Sig: Take 1 tablet by mouth every 8 hours as needed for Nausea/Vomiting. Disc: Course of therapy completed Encounter Status:Closed by NERISSA ABRAMS on 10/15/17 CNCO Observed: 10/15/2017 Status: COMPLETED Source: [place] 12:00 AM [facility] [place] REPOSITORY Letter Text Kane Kern MD [facility] [address] [place] [address], [place] [address] Saranya Malave October 15, 2017 RE: Saranya Malave To Whom it May Concern: This is to confirm that Saranya Malave is and is a patient under my care for the . Her estimated date of delivery is Estimated Date of Delivery: 05/19/18. We encourage ongoing preventative dental care and treatment of dental problems during . She may undergo routine dental care and treatment with the following considerations: Generally Permitted: Any local anesthetic (without Epinephrine) Pain medications such as Tylenol with codeine, Vicodin, Fioricet Antibiotics of the Penicillin or Cephalosporin family such as Amoxicillin, Keflex, and Erythromycin Dental x-rays with shielded abdomen Generally Not Advised: General anesthesia Antibiotics in the Flouroquinolone or Doxycycline family. No Tetracycline. Benzodiazepines and Barbiturates Please contact me if any further information is needed. Sincerely, Kane Kern MD (Electronically signed) PROGRESS Observed: 10/10/2017 Status: COMPLETED Source: [place] 8:07 AM [facility] REPOSITORY HNO ID: [id number] Author: Faith Tanner Rdms Service: (none) Author Type: (none) Type: Progress Notes Filed: 10/10/2017 8:07 AM Note Text: Radiology Service Progress Note PATIENT NAME: Saranya Malave DATE OF SERVICE: October 10, 2017 TIME: 8:07 AM PATIENT IDENTITY VERIFICATION COMPLETED USING TWO (2) METHODS: Patient confirmed name verbally. PATIENT GENDER DATA: Female. status: : Yes. Internal Quality Check OK. Reference Range: Negative status: NO. PATIENT RELEVANT IMPLANT DATA REVIEWED: Not Applicable RADIOLOGY DEPARTMENT: Ultrasound PERIPHERAL IV DATA: Not applicable SIGNED BY: Faith Tanner Rdms October 10, 2017 8:07 AM US PREG TRANSVAG <14 Observed: 10/10/2017 Status: F Source: [facility] 8:03 AM [facility] REPOSITORY * * *Final Report* * * DATE OF EXAM: Oct 10 2017 8:03AM [facility] [id number] - US PREG TRANSVAG <14 WEEKS / PROCEDURE REASON: Encounter for supervision of other normal , first trimester * * * * Physician Interpretation * * * * EXAMINATION: US PREG TRANSVAG <14 WEEKS HISTORY: Encounter for supervision of other normal , first trimester . TECHNIQUE: Grayscale and color Doppler images of the pelvis were obtained. RESULT: The uterus measures approximately 11.8 x 6.0 x 7.4 cm. There is an intrauterine gestation. [place]vett-rump length measures 2.6 cm, corresponding to an estimated gestational age of 9 weeks and 3 days. The gestational sac measures 5.1 x 2.2 x 2.4 cm, corresponding to estimated gestational age of 8 weeks and 2 days. A yolk sac is seen. There is a heart rate of 180 bpm. The right ovary measures approximately 4.4 x 3.8 x 3.4 cm. There is an approximately 3.3 x 2.7 x 2.7 cm right ovarian cyst. The left ovary measures approximately 2.2 x 1.8 x 1.2 cm and appears grossly unremarkable. IMPRESSION: No acute findings. Viable intrauterine gestation, with estimated gestational age based on this ultrasound of 8 weeks and 6 days +/-4 days. Incidentally noted is an approximately 3.3 cm cyst within the right ovary. Vegetable Trimmer: PSCB Transcribe Date/Time: Oct 10 2017 8:08A Dictated by : MNEDOZA PENNINGTON MD This examination was interpreted and the report reviewed and electronically signed by: MENDOZA PENNINGTON MD on Oct 10 2017 8:11AM EST [id number] PROGRESS Observed: 10/09/2017 Status: COMPLETED Source: [place] 1:55 PM [facility] [place] REPOSITORY HNO ID: [id number] Author: Kane Kern Service: (none) Author Type: Physician Type: Progress Notes Filed: 11/03/2017 10:55 AM Note Text: Saranya Malave is a 27 year old female who presents for discussion of concerns regarding recent positive test, uncertain gestational age, early first trimester. Patient had recently been hospitalized and treated for Clostridium difficile and had seen Dr. Samson for fistulotomy. Issues from last appointment as noted below: 09/23 last visit. fistulotomy. She developed C. difficile colitis and was treated with vancomycin. She is concerned because she recently found out she is . The blood hCG calculates her at 8-12 weeks. She is concerned because she has had surgery plus antibiotics during this timeframe despite her negative test in the hospital. 09/23 HCG 53, 824 uncertain Subjective: Patient with no vaginal bleeding. No cramping. Minimal nausea. Current Outpatient Prescriptions on File Prior to Visit: nystatin (NYSTOP) powder Apply 1 application to affected area four times daily. lidocaine (XYLOCAINE) 2 % jelly Lidocaine and bacitracin 1:1 ratio mix . Apply to rectal area as directed 4 times a day. 60 gram tube. one refill HYDROcodone-acetaminophen (NORCO) 5-325 mg per tablet cetirizine (ZYRTEC) 10 mg tablet Take 10 mg by mouth. Levonorgestrel-Ethinyl Estrad 0.1mg - 20mcg per tablet Take 1 tablet by mouth once daily. 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 - Perirectal abscess 07/2017 - Sprain, sacroiliac [facility] PAST SURGICAL HISTORY Procedure Laterality Date - CRYOSURGERY - FISTULOTOMY SUBCUT 09/01/2017 Anal Fistulectomy - PAST SURGICAL HISTORY OF 09/01/2017 Rectal exam under anesthesia and fistulotomy, FAMILY HISTORY Problem Relation Age of Onset - Diabetes Maternal Grandmother - Diabetes Maternal Grandfather - Hypertension Maternal Grandfather - Hyperlipidemia Maternal Grandfather - Stroke Maternal Grandfather - Cancer Maternal Grandfather SKIN - Cancer Paternal Grandfather LUNG - Cancer Paternal Grandmother LUNG Social History Marital status: Single Spouse name: Years of education: Number of children: Social History Main Topics Smoking status: Current Every Day Smoker Packs/day: 0.00 Years: 0.00 Smokeless tobacco: Never Used Alcohol use: Yes Comment: occ Drug use: No Other Topics Concern Caffeine Concern Yes Comment:alot 2-3pots of coffee a day Special Diet No Comment:regular Exercise Yes Comment:walk dog Objective: BP 118/64 Wt 157 lb 12.8 oz (71.6kg) LMP 08/12/2017 Patient's last menstrual period was 08/12/2017. ALLERGIES No Known Allergies Abdomen: Soft nontender nondistended no masses, no rebound no guarding. No uterine distention. Assessment: 1) newly , early first trimester. 2) last month patient treated for C. difficile, also rectal exam under anesthesia and fistulotomy with negative tests in the hospital, by Dr. Samson. 3) presents with early nausea and concerns regarding last months treatment. 4) Plan: 1) long educational discussion with the patient regarding her [place] a low risk based on negative test at time of surgery. 2) uncertain LMP, will obtain ultrasound to confirm gestational age 3) Zofran or Phenergan to treat morning sickness 4) already scheduled as an appointment with Dr. Renner for new OB. Kane Kern MD CNOV Observed: 10/09/2017 Status: COMPLETED Source: [place] 1:30 PM [facility] REPOSITORY Office Visit ([facility]) SARANYA MALAVE ([id number]) 1990 F Date Time Provider Department 10/09/17 1:30 PM KANE KERN [facility] During your visit today, we recorded the following information about you: Blood pressure Weight Last Period 118/64 71.6 kg 08/12/17 Kane Kern MD 11/03/2017 10:55 AM Signed Saranya Malave is a 27 year old female who presents for discussion of concerns regarding recent positive test, uncertain gestational age, early first trimester. Patient had recently been hospitalized and treated for Clostridium difficile and had seen Dr. Samson for fistulotomy. Issues from last appointment as noted below: 09/23 last visit. fistulotomy. She developed C. difficile colitis and was treated with vancomycin. She is concerned because she recently found out she is . The blood hCG calculates her at 8-12 weeks. She is concerned because she has had surgery plus antibiotics during this timeframe despite her negative test in the hospital. 09/23 HCG 53, 824 uncertain Subjective: Patient with no vaginal bleeding. No cramping. Minimal nausea. Current Outpatient Prescriptions on File Prior to Visit: nystatin (NYSTOP) powder Apply 1 application to affected area four times daily. lidocaine (XYLOCAINE) 2 % jelly Lidocaine and bacitracin 1:1 ratio mix . Apply to rectal area as directed 4 times a day. 60 gram tube. one refill HYDROcodone-acetaminophen (NORCO) 5-325 mg per tablet cetirizine (ZYRTEC) 10 mg tablet Take 10 mg by mouth. Levonorgestrel-Ethinyl Estrad 0.1mg - 20mcg per tablet Take 1 tablet by mouth once daily. 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 - Perirectal abscess 07/2017 - Sprain, sacroiliac [facility] PAST SURGICAL HISTORY Procedure Laterality Date - CRYOSURGERY - FISTULOTOMY SUBCUT 09/01/2017 Anal Fistulectomy - PAST SURGICAL HISTORY OF 09/01/2017 Rectal exam under anesthesia and fistulotomy, FAMILY HISTORY Problem Relation Age of Onset - Diabetes Maternal Grandmother - Diabetes Maternal Grandfather - Hypertension Maternal Grandfather - Hyperlipidemia Maternal Grandfather - Stroke Maternal Grandfather - Cancer Maternal Grandfather SKIN - Cancer Paternal Grandfather LUNG - Cancer Paternal Grandmother LUNG Social History Marital status: Single Spouse name: Years of education: Number of children: Social History Main Topics Smoking status: Current Every Day Smoker Packs/day: 0.00 Years: 0.00 Smokeless tobacco: Never Used Alcohol use: Yes Comment: occ Drug use: No Other Topics Concern Caffeine Concern Yes Comment:alot 2-3pots of coffee a day Special Diet No Comment:regular Exercise Yes Comment:walk dog Objective: BP 118/64 Wt 157 lb 12.8 oz (71.6kg) LMP 08/12/2017 Patient's last menstrual period was 08/12/2017. ALLERGIES No Known Allergies Abdomen: Soft nontender nondistended no masses, no rebound no guarding. No uterine distention. Assessment: 1) newly , early first trimester. 2) last month patient treated for C. difficile, also rectal exam under anesthesia and fistulotomy with negative tests in the hospital, by Dr. Samson. 3) presents with early nausea and concerns regarding last months treatment. 4) Plan: 1) long educational discussion with the patient regarding her [place] a low risk based on negative test at time of surgery. 2) uncertain LMP, will obtain ultrasound to confirm gestational age 3) Zofran or Phenergan to treat morning sickness 4) already scheduled as an appointment with Dr. Renner for new OB. Kane Kern MD Referring Provider: SELF [[id number]] Allergies As of Date: 10/09/2017 (No Known Allergies) Date Reviewed: 09/23/2017 Reviewed by: Earline Samson - Fully Assessed Reason for Visit: New Patient [172] Cmt: Consult Primary Visit Diagnosis:Non-intractable vomiting with nausea, unspecified vomiting type [R11.2] Other Visit Diagnosis:Infectious disease in mother during first trimester of [O98.911] Order(s):promethazine (PHENERGAN) 25 mg tabletTake 1 tablet by mouth every 6 hours as needed for Nausea/Vomiting.Disp: 30 tabletRfl: 5 US PREG TRANSABD <14 WEEKS LTD [[id number]] Order #: [id number] FUTURE US PREG TRANSVAG <14 WEEKS [[id number]] Order #: [id number] FUTURE Prescriptions as of 10/09/2017 Sig: PROMETHAZINE 25 MG TABLET Take 1 tablet by mouth every * Patient not taking: Reported on 10/21/2017 X ONDANSETRON HCL 4 MG TABLET Take 1 tablet by mouth every * NYSTATIN 100,000 UNIT/GRAM TO* Apply 1 application to affect* Patient not taking: Reported on 10/21/2017 LIDOCAINE 2 % MUCOSAL JELLY Lidocaine and bacitracin 1:1 * Patient not taking: Reported on 10/21/2017 CETIRIZINE 10 MG TABLET Take 10 mg by mouth. Problem List As Of Date 10/09/2017 Noted Resolved Oral contraception initial prescription [Z30.01*INVALID FOR* Screening for malignant neoplasm of the cervix *INVALID FOR* Displacement of lumbar intervertebral disc with*INVALID FOR* Perirectal abscess [K61.1] INVALID FOR* Cold intolerance [R68.89] INVALID FOR* Dry skin [L85.3] INVALID FOR* Anal fistula [K60.3] INVALID FOR* More... Prescriptions ordered this encounter Disp Refills Start End ONDANSETRON HCL 4 MG TABLET 30 t* 2 10/09/2017 10/15/2017 Class: Print RX Route: ORAL Sig: Take 1 tablet by mouth every 8 hours as needed for Nausea/Vomiting. Disc: Course of therapy completed PROMETHAZINE 25 MG TABLET 30 t* 5 10/09/2017 Route: ORAL Sig: Take 1 tablet by mouth every 6 hours as needed for Nausea/Vomiting. Medications Discontinued During This Encounter Levonorgestrel-Ethinyl Estrad 0.1mg * 1 Pa* 11 07/25/2015 10/09/2017 Route: ORAL Sig: Take 1 tablet by mouth once daily. Disc: Reason for discontinue is not on file. HYDROcodone-acetaminophen (NORCO) 5-* 0 07/15/2017 10/09/2017 Class: Historical Med Sig: Disc: Reason for discontinue is not on file. Encounter Status:Closed by KANE KERN MD on 11/03/17 PROGRESS Observed: 09/23/2017 Status: COMPLETED Source: [place] 4:58 PM [facility] REPOSITORY O ID: [id number] Author: Earline Samson Service: (none) Author Type: Physician Type: Progress Notes Filed: 09/23/2017 5:01 PM Note Text: HPI: Saranya returns in follow-up of her fistulotomy. She developed C. difficile colitis and was treated with vancomycin. She is concerned because she recently found out she is . The blood hCG calculates her at 8-12 weeks. She is concerned because she has had surgery plus antibiotics during this timeframe despite her negative test in the hospital. EXAM: There were no vitals taken for this visit. Exam deferred PATHOLOGY: Previously reviewed ASSESSMENT: (K60.3) Anal fistula (primary encounter diagnosis) (A04.72) C. difficile colitis Saranya returns in follow-up of her anal fistulotomy. She was also treated for C. difficile colitis. Overall she is feeling very well. Her main concern today is that she found out she is . Blood hCG H at 8-12 weeks. She is concerned because she has had surgery plus antibiotics during this timeframe despite her negative test in the hospital. She is currently awaiting Medicaid. I encouraged her to follow up with the sports complex attendant to address these concerns. She can return to see me as needed. No orders found for this visit on 09/23/17. Earline Samson MD CNOV Observed: 09/23/2017 Status: COMPLETED Source: [place] 3:15 PM [facility] REPOSITORY Office Visit (GENMACIEL) SARANYA MALAVE ([id number]) 1990 F Date Time Provider Department 09/23/17 3:15 PM EARLINE SAMSON During your visit today, we recorded the following information about you: Earline Samson MD 09/23/2017 5:01 PM Signed HPI: Saranya returns in follow-up of her fistulotomy. She developed C. difficile colitis and was treated with vancomycin. She is concerned because she recently found out she is . The blood hCG calculates her at 8-12 weeks. She is concerned because she has had surgery plus antibiotics during this timeframe despite her negative test in the hospital. EXAM: There were no vitals taken for this visit. Exam deferred PATHOLOGY: Previously reviewed ASSESSMENT: (K60.3) Anal fistula (primary encounter diagnosis) (A04.72) C. difficile colitis Saranya returns in follow-up of her anal fistulotomy. She was also treated for C. difficile colitis. Overall she is feeling very well. Her main concern today is that she found out she is . Blood hCG H at 8-12 weeks. She is concerned because she has had surgery plus antibiotics during this timeframe despite her negative test in the hospital. She is currently awaiting Medicaid. I encouraged her to follow up with the sports complex attendant to address these concerns. She can return to see me as needed. No orders found for this visit on 09/23/17. Earline Samson MD Referring Provider: NERISSA ABRAMS ([facility]) [[id number]] Allergies As of Date: 09/23/2017 (No Known Allergies) Date Reviewed: 09/23/2017 Reviewed by: Earline Samson - Fully Assessed Reason for Visit: Follow Up [171] Primary Visit Diagnosis:Anal fistula [K60.3] Other Visit Diagnosis:C. difficile colitis [A04.72] Prescriptions as of 09/23/2017 Sig: NYSTATIN 100,000 UNIT/GRAM TO* Apply 1 application to affect* LIDOCAINE 2 % MUCOSAL JELLY Lidocaine and bacitracin 1:1 * HYDROCODONE 5 MG-ACETAMINOPHE* CETIRIZINE 10 MG TABLET Take 10 mg by mouth. LEVONORGESTREL-ETHINYL ESTRAD* Take 1 tablet by mouth once d* Problem List As Of Date 09/23/2017 Noted Resolved Oral contraception initial prescription [Z30.01*INVALID FOR* Screening for malignant neoplasm of the cervix *INVALID FOR* Displacement of lumbar intervertebral disc with*INVALID FOR* Perirectal abscess [K61.1] INVALID FOR* Cold intolerance [R68.89] INVALID FOR* Dry skin [L85.3] INVALID FOR* Anal fistula [K60.3] INVALID FOR* More... Follow-up and Disposition History Recorded Encounter Status:Closed by EARLINE SAMSON MD on 09/23/17 PROGRESS Observed: 09/12/2017 Status: COMPLETED Source: [place] 2:53 PM [facility] REPOSITORY O ID: [id number] Author: Nerissa ([facility]) Jose Alberto Service: (none) Author Type: Nurse Practitioner Type: Progress Notes Filed: 09/12/2017 3:05 PM Note Text: ESTABLISHED PATIENT Saranya Malave is a 27 year old female presenting for Anal Fistulotomy Follow up. HISTORY OF PRESENT ILLNESS Saranya is 11 days post op from an anal fistulectomy by Dr. Samson. Her post op course is complicated by the development of C DIff. She is feeling better, some anal pain remains, she continues to have diarrhea but it is better and starting to solidify. She reports itching at the top of the gluteal cleft. On exam the fistula is healing with some yellow discharge which she believes is the cream she is using. The area of concern with itching is red, moist with white plaques. 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 - Perirectal abscess 07/2017 - Sprain, sacroiliac BWC PAST SURGICAL HISTORY Procedure Laterality Date - CRYOSURGERY - FISTULOTOMY SUBCUT 09/01/2017 Anal Fistulectomy - PAST SURGICAL HISTORY OF 09/01/2017 Rectal exam under anesthesia and fistulotomy, Social History Marital status: Single Spouse name: Years of education: Number of children: Social History Main Topics Smoking status: Current Every Day Smoker Packs/day: 0.00 Years: 0.00 Smokeless tobacco: Never Used Alcohol use: Yes Comment: occ Drug use: No Other Topics Concern Caffeine Concern Yes Comment:alot 2-3pots of coffee a day Special Diet No Comment:regular Exercise Yes Comment:walk dog Allergies: ALLERGIES No Known Allergies Medications: lidocaine (XYLOCAINE) 2 % jelly Lidocaine and bacitracin 1:1 ratio mix . Apply to rectal area as directed 4 times a day. 60 gram tube. one refill vancomycin (VANCOCIN HCL) 125 mg capsule Take 1 capsule by mouth four times daily for 10 days. cetirizine (ZYRTEC) 10 mg tablet Take 10 mg by mouth. HYDROcodone-acetaminophen (NORCO) 5-325 mg per tablet Levonorgestrel-Ethinyl Estrad 0.1mg - 20mcg per tablet Take 1 tablet by mouth once daily. REVIEW OF SYSTEMS PAIN ASSESSMENT: CURRENTLY HAVING PAIN; PAIN SCALE: 3 on 0-10 scale per patient GENERAL: No weight loss, malaise or fevers RESPIRATORY: Negative for cough, hemoptysis, wheezing, COPD, dyspnea or shortness of breath CARDIOVASCULAR: Negative for chest pain, leg swelling, hypertension, CHF or palpitations GI: diarrhea, no nausea or vomiting : No history of dysuria, frequency or incontinence PHYSICAL EXAM Temp 36.5 ?C (97.7 ?F) General Appearance: Well appearing, alert, in no acute distress, well-hydrated, well nourished.. Skin: Skin color, texture, turgor normal, no suspicious rashes or lesions. Lungs: Lungs clear to auscultation. No wheezing, rhonchi, rales. Heart: RRR without murmur, gallop, or rubs. No ectopy. Abdomen: Normal abdominal exam, Abdomen soft, non-tender. Bowel sounds normal. No masses, organomegaly. Rectal: Positive findings: see HPI. Assessment IMPRESSION/PLAN Saranya's post operative course has been hindered by the development of a C Diff infection. Her fistulectomy site is healing slowly. SHe overall feels better but will follow up with Dr. Samson next week. CNOV Observed: 09/12/2017 Status: COMPLETED Source: [place] 11:20 AM [facility] REPOSITORY Office Visit (GENKENRICKE) SARANYA MALAVE ([id number]) 1990 F Date Time Provider Department 09/12/17 11:20 AM NERISSA ABRAMS ([facility]) MARIA GUADALUPE During your visit today, we recorded the following information about you: Temperature 97.7 degrees Nerissa Abrams APRN.CNP 09/12/2017 3:05 PM Signed ESTABLISHED PATIENT Saranya Malave is a 27 year old female presenting for Anal Fistulotomy Follow up. HISTORY OF PRESENT ILLNESS Saranya is 11 days post op from an anal fistulectomy by Dr. Samson. Her post op course is complicated by the development of C DIff. She is feeling better, some anal pain remains, she continues to have diarrhea but it is better and starting to solidify. She reports itching at the top of the gluteal cleft. On exam the fistula is healing with some yellow discharge which she believes is the cream she is using. The area of concern with itching is red, moist with white plaques. 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 - Perirectal abscess 07/2017 - Sprain, sacroiliac BWC PAST SURGICAL HISTORY Procedure Laterality Date - CRYOSURGERY - FISTULOTOMY SUBCUT 09/01/2017 Anal Fistulectomy - PAST SURGICAL HISTORY OF 09/01/2017 Rectal exam under anesthesia and fistulotomy, Social History Marital status: Single Spouse name: Years of education: Number of children: Social History Main Topics Smoking status: Current Every Day Smoker Packs/day: 0.00 Years: 0.00 Smokeless tobacco: Never Used Alcohol use: Yes Comment: occ Drug use: No Other Topics Concern Caffeine Concern Yes Comment:alot 2-3pots of coffee a day Special Diet No Comment:regular Exercise Yes Comment:walk dog Allergies: ALLERGIES No Known Allergies Medications: lidocaine (XYLOCAINE) 2 % jelly Lidocaine and bacitracin 1:1 ratio mix . Apply to rectal area as directed 4 times a day. 60 gram tube. one refill vancomycin (VANCOCIN HCL) 125 mg capsule Take 1 capsule by mouth four times daily for 10 days. cetirizine (ZYRTEC) 10 mg tablet Take 10 mg by mouth. HYDROcodone-acetaminophen (NORCO) 5-325 mg per tablet Levonorgestrel-Ethinyl Estrad 0.1mg - 20mcg per tablet Take 1 tablet by mouth once daily. REVIEW OF SYSTEMS PAIN ASSESSMENT: CURRENTLY HAVING PAIN; PAIN SCALE: 3 on 0-10 scale per patient GENERAL: No weight loss, malaise or fevers RESPIRATORY: Negative for cough, hemoptysis, wheezing, COPD, dyspnea or shortness of breath CARDIOVASCULAR: Negative for chest pain, leg swelling, hypertension, CHF or palpitations GI: diarrhea, no nausea or vomiting : No history of dysuria, frequency or incontinence PHYSICAL EXAM Temp 36.5 ?C (97.7 ?F) General Appearance: Well appearing, alert, in no acute distress, well-hydrated, well nourished.. Skin: Skin color, texture, turgor normal, no suspicious rashes or lesions. Lungs: Lungs clear to auscultation. No wheezing, rhonchi, rales. Heart: RRR without murmur, gallop, or rubs. No ectopy. Abdomen: Normal abdominal exam, Abdomen soft, non-tender. Bowel sounds normal. No masses, organomegaly. Rectal: Positive findings: see HPI. Assessment IMPRESSION/PLAN Saranya's post operative course has been hindered by the development of a C Diff infection. Her fistulectomy site is healing slowly. SHe overall feels better but will follow up with Dr. Samson next week. Referring Provider: EARLINE SAMSON [[id number]] Allergies As of Date: 09/12/2017 (No Known Allergies) Date Reviewed: 09/12/2017 Reviewed by: Nerissa ([facility]) Jose Alberto - Fully Assessed Reason for Visit: Anal Fistulotomy Follow up [Other] Reason For Visit History Recorded Primary Visit Diagnosis:Anal fistula [K60.3] Order(s):nystatin 100,000 unit/gram powd (MYCOSTATIN)Disp: Rfl: Prescriptions as of 09/12/2017 Sig: LIDOCAINE 2 % MUCOSAL JELLY Lidocaine and bacitracin 1:1 * VANCOMYCIN 125 MG CAPSULE Take 1 capsule by mouth four * CETIRIZINE 10 MG TABLET Take 10 mg by mouth. HYDROCODONE 5 MG-ACETAMINOPHE* LEVONORGESTREL-ETHINYL ESTRAD* Take 1 tablet by mouth once d* Medication notes this encounter HYDROCODONE 5 MG-ACETAMINOPHEN 325 MG TABLET >> Linda Aguirre RN 09/12/2017 11:38 AM >> LINDA AGUIRRE RN FriSep 12, 2017 11:38 AM not taking LEVONORGESTREL-ETHINYL ESTRADIOL 0.1 MG-20 MCG TABLET >> Linda Aguirre RN 09/12/2017 11:38 AM >> LINDA AGUIRRE RN FriSep 12, 2017 11:38 AM not taking Problem List As Of Date 09/12/2017 Noted Resolved Oral contraception initial prescription [Z30.01*INVALID FOR* Screening for malignant neoplasm of the cervix *INVALID FOR* Displacement of lumbar intervertebral disc with*INVALID FOR* Perirectal abscess [K61.1] INVALID FOR* Cold intolerance [R68.89] INVALID FOR* Dry skin [L85.3] INVALID FOR* Anal fistula [K60.3] INVALID FOR* More... Prescriptions ordered this encounter Disp Refills Start End NYSTATIN 100,000 UNIT/GRAM TOPICAL P* 09/12/2017 Class: Suppress Questions Route: TOPICAL Encounter Status:Closed by NERISSA ABRAMS on 09/12/17 PROGRESS Observed: 09/09/2017 Status: COMPLETED Source: [place] 5:08 PM [facility] REPOSITORY HNO ID: [id number] Author: Earline Samson Service: (none) Author Type: Physician Type: Progress Notes Filed: 09/09/2017 5:09 PM Note Text: HPI: Saranya returns 1 week status post fistulotomy. She has started with diarrhea over the past 24 hours. She is complaining of a lot of pain. EXAM: BP 120/76 Pulse 93 Temp 98.8 Ht 5' 4 (1.63m) Her fistulotomy incision is healing in nicely. She does have a swollen papilla. PATHOLOGY: No evidence for Crohn's ASSESSMENT: (K60.3) Anal fistula (primary encounter diagnosis) (R19.7) Diarrhea, unspecified type Saranya returns 1 week status post fistulotomy of an anal fistula. We'll obtain stool studies for her diarrhea. She was started on lidocaine ointment. She'll return as scheduled next week. Office Visit on 09/08/17 -C. DIFFICILE PCR -ENTERIC BACTERIAL PANEL BY PCR -ENTERIC BACTERIAL PANEL BY PCR -C. DIFFICILE TOXIN BY EIA Earline Samson MD C DIFFICILE PCR Collected: 09/08/2017 Status: F Source: [place] 10:45 AM [facility] REPOSITORY TYPE CODE TESTS RESULT OUT OF RANGE REFERENCE UNITS LAB CDFRES C Abnormal difficile PCR Positive for Alert C. difficile toxin by PCR Result Comment: . A positive PCR result may indicate C. difficile infection or colonization. The positive predictive value of this test for C. difficile infection is highest for patients with clinically significant diarrhea (>=3 unformed stools in 24 h) who do not have an alternative explanation (e.g., recent receipt of laxatives). Toxin EIA testing will also be performed as recommended by IDSA clinical practice guidelines for institutions without preagreed criteria for specimen submission. Performed By: #### CDPCR #### [facility] [employer] [address] [address] C. DIFF TOXIN BY Collected: 09/08/2017 Status: F Source: [place] EIA LAB 10:45 AM [facility] ORDER ONLY REPOSITORY TYPE CODE TESTS RESULT OUT OF REFERENCE UNITS RANGE LAB CDEIAT C. difficile toxin not detected C.diff by EIA. Toxin EIA Toxin EIA is less sensitive than cell cytotoxin and PCR assays. Clinical correlation of PCR positive/toxin EIA negative results is required to distinguish C. difficile colonization from disease. Performed By: #### CDEIA #### [facility] [employer] [address] [address] ENTERIC BACT PNL PCR Collected: 09/08/2017 Status: F Source: [place] 10:45 AM [facility] REPOSITORY TYPE CODE TESTS RESULT OUT OF REFERENCE UNITS RANGE LAB PCRSHG Shigella/EIEC Not Detected DNA LAB PCRCMP Campy jejun/coli DNA Not Detected LAB PCRSTX Shiga toxin gene(s) Not Detected LAB PCRSAL Salmonella spp. Not Detected DNA Performed By: #### STLPCR #### [facility] [employer] [address] [address] CNOV Observed: 09/08/2017 Status: COMPLETED Source: [place] 9:45 AM [facility] REPOSITORY Office Visit (GENSME) SARANYA MALAVE ([id number]) 1990 F Date Time Provider Department 09/08/17 9:45 AM EARLINE SAMSON During your visit today, we recorded the following information about you: Temperature Pulse Blood pressure Height 98.8 degrees 93/minute 120/76 1.626 m Earline Samson MD 09/09/2017 5:09 PM Signed HPI: Saranya returns 1 week status post fistulotomy. She has started with diarrhea over the past 24 hours. She is complaining of a lot of pain. EXAM: BP 120/76 Pulse 93 Temp 98.8 Ht 5' 4 (1.63m) Her fistulotomy incision is healing in nicely. She does have a swollen papilla. PATHOLOGY: No evidence for Crohn's ASSESSMENT: (K60.3) Anal fistula (primary encounter diagnosis) (R19.7) Diarrhea, unspecified type Saranya returns 1 week status post fistulotomy of an anal fistula. We'll obtain stool studies for her diarrhea. She was started on lidocaine ointment. She'll return as scheduled next week. Office Visit on 09/08/17 -C. DIFFICILE PCR -ENTERIC BACTERIAL PANEL BY PCR -ENTERIC BACTERIAL PANEL BY PCR -C. DIFFICILE TOXIN BY EIA Earline Samson MD Referring Provider: EARLINE SAMSON [[id number]] Allergies As of Date: 09/08/2017 (No Known Allergies) Date Reviewed: 09/08/2017 Reviewed by: Sandra Ma LPN - Fully Assessed Reason for Visit: Post Op [174] Cmt: Rectal exam under anesthesia and fistulotomy Primary Visit Diagnosis:Anal fistula [K60.3] Other Visit Diagnosis:Diarrhea, unspecified type [R19.7] Order(s):C. DIFFICILE PCR [SQCDPCR] Order #: [id number]. #:[id number] ENTERIC BACTERIAL PANEL BY PCR [SQSTLPCR] Order #: [id number] FUTURE ENTERIC BACTERIAL PANEL BY PCR [SQSTLPCR] Order #: [id number]. #:[id number] C. DIFFICILE TOXIN BY EIA [SQCDEIA] Order #: [id number]. #:[id number] Prescriptions as of 09/08/2017 Sig: HYDROCODONE 5 MG-ACETAMINOPHE* CETIRIZINE 10 MG TABLET Take 10 mg by mouth. LEVONORGESTREL-ETHINYL ESTRAD* Take 1 tablet by mouth once d* Problem List As Of Date 09/08/2017 Noted Resolved Oral contraception initial prescription [Z30.01*INVALID FOR* Screening for malignant neoplasm of the cervix *INVALID FOR* Displacement of lumbar intervertebral disc with*INVALID FOR* Perirectal abscess [K61.1] INVALID FOR* Cold intolerance [R68.89] INVALID FOR* Dry skin [L85.3] INVALID FOR* Anal fistula [K60.3] INVALID FOR* More... Encounter Status:Closed by EARLINE SAMSON MD on 09/09/17 ANES POST Observed: 09/01/2017 Status: COMPLETED Source: [place] 1:31 PM CLIN[facility] OTHER [facility]AMPUS REPOSITORY HNO ID: [id number] Author: Liborio Ornelas Service: Anesthesiology Author Type: Anesthesiologist Type: Anesthesia PostOp Filed: 09/01/2017 1:36 PM Note Text: POST ANESTHESIA EVALUATION NOTE SERVICE DATE: 09/01/2017 SERVICE TIME: 1300 : 1990 Vitals: 09/01/17 1022 09/01/17 1210 09/01/17 1300 Temp: 36.6 ?C (97.9 ?F) 36.6 ?C (97.9 ?F) 37 ?C (98.6 ?F) 09/01/17 1215 09/01/17 1230 09/01/17 1245 09/01/17 1300 BP: 105/58 99/56 103/62 108/66 09/01/17 1215 09/01/17 1230 09/01/17 1245 09/01/17 1300 Pulse: 68 62 70 67 09/01/17 1215 09/01/17 1230 09/01/17 1245 09/01/17 1300 Resp: 12 14 16 16 09/01/17 1215 09/01/17 1230 09/01/17 1245 09/01/17 1300 SpO2: 100% 100% 100% 100% Validated Vital Signs: yes POST ANES STATUS: No apparent anesthetic complications. The patient is appropriately hydrated with stable respiratory and cardiovascular status. Patient has safe and adequate airway control. The patient has appropriate pain relief and no significant post operative nausea or vomiting. The patient has achieved baseline mental status. Further assessment by Anesthesia Service: None Other Remarks: SIGNATURE: Liborio Ornelas MD PATIENT NAME: Saranya Malave DATE: September 01, 2017 TIME: 1:36 PM PAGER/CONTACT #: [id number] PT ED Observed: 09/01/2017 Status: COMPLETED Source: [place] 1:28 PM [facility] REPOSITORY HNO ID: [id number] Author: Denice Oconnor (Rn) ROMAN Morales Service: (none) Author Type: Registered Nurse Type: Patient Education Filed: 09/01/2017 1:31 PM Note Text: PATIENT EDUCATION TOPIC: PROCEDURE / SURGERY: Post-op Teaching: Symptom Management PATIENT NAME: Saranya Malave [facility] READINESS TO LEARN COGNITIVE ABILITY: Alert and oriented MOTIVATION TO LEARN: Eager Interested FAMILY SUPPORT: None - Unavailable/disinterested INSTRUCTION PROVIDED TO: Patient and Patient and family member PATIENT LEARNS BEST BY: Individual Instruction Written Instruction - Hand-outs Verbal Instruction FACTORS AFFECTING LEARNING: None PHYSICAL LIMITATIONS AFFECTING LEARNING: None LEARNING RESPONSE DIAGNOSIS: ADULT: Rectal exam PATIENT/FAMILY RESPONSE: { :578 METHOD OF INSTRUCTION: Written instruction - handouts Verbal instruction FOLLOW-UP PLAN: Complete - No need for follow-up INSTRUCTIONAL AIDS USED: NA SUPPLEMENTAL MATERIAL PROVIDED TO PATIENT: None REFERRAL (RECOMMENDATION): None Electronically Signed By: Denice Morales RN BRIEF OP NOT Observed: 09/01/2017 Status: COMPLETED Source: [place] 12:21 PM [facility] REPOSITORY HNO ID: [id number] Author: Earline Samson Service: General Surgery Author Type: Physician Type: Brief Op Note Filed: 09/01/2017 12:25 PM Note Text: BRIEF OPERATIVE / PROCEDURE NOTE LOG ID: [id number] SURGERY/PROCEDURE DATE: 09/01/2017 INCISION/PROCEDURE START TIME: 11:43 AM INCISION CLOSE/PROCEDURE END TIME: 12:02 PM SURGEON(S)/PROCEDURALIST(S) AND COMMUNITY RELATIONS LIAISON(S): Surgeon(s) and Role: * Earline Samson - Primary Registered Nurse Direct Marketing Coordinator: Jeannine (Rn) ROMAN Godoy SURGERY/PROCEDURE(S): Rectal EUA and fistulotomy ANESTHESIA: Monitored Anesthesia Care FINDINGS: see report ESTIMATED BLOOD LOSS: min SPECIMENS: 1 COMPLICATIONS: None PRE-OP/PRE-PROCEDURE DIAGNOSIS: Fistula in ano POST-OP/POST-PROCEDURE DIAGNOSIS: same # [id number] SIGNATURE: Earline Samson MD PATIENT NAME: Saranya Malave DATE: September 01, 2017 TIME: 12:21 PM PAGER/CONTACT #: SURGICAL PATHOLOGY Observed: 09/01/2017 Status: F Source: [place] 12:00 PM [facility] OTHER CAMPUS REPOSITORY Specimen originated from [facility] Specimen #: [id number] Submitting Physician: Earline Samson M.D. FINAL DIAGNOSIS Anoderm, biopsy - Skin with acute and chronic inflammation. - No granulomas identified. JDR/dss 09/04/2017 Pavan Reyez M.D. (Electronic Signature) SPECIMEN SUBMITTED A: ANODERM BIOPSY CLINICAL DATA ANAL FISTULA, LMP: NA, R/O CROHN'S GROSS DESCRIPTION A. Received in formalin are three segments of irregular mane rubbery tissue aggregating to 2.0 x 0.8 x 0.5 cm. Specimens are bisected. Totally submitted in one cassette. Gross examination performed at [facility], [address] [place] [address] 09/01/2017 4:54:46 PM Date of Report: 09/04/2017 Date of Procedure: 09/01/2017 Date of Receipt: 09/01/2017 Submitted by: Earline Samson M.D. Location: [facility] Diagnostic interpretation performed at [place] [address]. Performed By: #### PATHS #### [place] [address] [phone] ANES PREOP Observed: 09/01/2017 Status: COMPLETED Source: [place] 11:03 AM [facility] OTHER CAMPUS REPOSITORY HNO ID: [id number] Author: Liborio Ornelas Service: Anesthesiology Author Type: Anesthesiologist Type: Anesthesia PreOp Filed: 09/01/2017 11:05 AM Note Text: ANESTHESIOLOGY DAY OF SURGERY NOTE SERVICE DATE: 09/01/2017 SERVICE TIME: 11:03 AM : 1990 Procedure(s) (LRB): EXAM UNDER ANESTHESIA RECTAL (N/A) Surgeon(s): Earline Samson Estimated body mass index is 27.64 kg/m? as calculated from the following: Height as of this encounter: 162.6 cm (5' 4). Weight as of this encounter: 73 kg (161 lb). 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 - Perirectal abscess 07/2017 - Sprain, sacroiliac BWC PAST SURGICAL HISTORY Procedure Laterality Date - CRYOSURGERY FAMILY HISTORY Problem Relation Age of Onset - Diabetes Maternal Grandmother - Diabetes Maternal Grandfather - Hypertension Maternal Grandfather - Hyperlipidemia Maternal Grandfather - Stroke Maternal Grandfather - Cancer Maternal Grandfather SKIN - Cancer Paternal Grandfather LUNG - Cancer Paternal Grandmother LUNG Social History: Social History Substance Use Topics - Smoking status: Current Every Day Smoker - Smokeless tobacco: Never Used - Alcohol use Yes Comment: occ No current facility-administered medications on file prior to encounter. Current Outpatient Prescriptions on File Prior to Encounter: HYDROcodone-acetaminophen (NORCO) 5-325 mg per tablet cetirizine (ZYRTEC) 10 mg tablet Take 10 mg by mouth. Levonorgestrel-Ethinyl Estrad 0.1mg - 20mcg per tablet Take 1 tablet by mouth once daily. Current Facility-Administered Medications: lactated ringers infusion 50 mL/hr INTRAVENOUS CONTINUOUS Nerissa (Vehicle Body Maker) Jose Alberto Last Rate: 50 mL/hr at 09/01/17 1030 50 mL/hr at 09/01/17 1030 cefOXitin 2 g in NaCl 0.9% 100 mL MB+ (MEFOXIN) 2 g INTRAVENOUS ONCE Earline Samson Allergies: ALLERGIES No Known Allergies DOS EXAM: Adequate NPO Status: Yes Anesthetic Risks, Benefits, Alternatives, Personnel and Consent Discussed: Yes Patient agrees to proceed: Yes Previous Anesthesia: No history of adverse event Airway Assessment: MP 2; Neck ROM: Full ROM without neurologic symptoms; Airway Evaluation: No significant abnormalities Symptoms of Sleep Apnea: None Dentition: Teeth intact Additional Physical Exam: Lungs: Patient health status unchanged since recent history and physical. See history and physical for exam findings. Cardiac: Patient health status unchanged since recent history and physical. See history and physical for exam findings. Additional Pertinent Findings: N/A Blood Products: Not anticipated for this procedure Anesthetic Plan: MAC with general as back up Anesthetic Monitoring: Standard ASA Monitors Pain Management Plan: Parenteral or Oral ASA Class: 2 Other Medical Problems: None Chronic Beta Femi medication administered within 24 hours: N/A I have interviewed and examined the patient. I have reviewed the medical record and/or the pre-anesthesia evaluation, pertinent labs, and test results. Significant changes in the patient's condition since the History and Physical, not otherwise documented in primary service progress notes: No This contains updated information obtained within 48 hours of Surgery/Procedure. SIGNATURE: Liborio Ornelas MD PATIENT NAME: Saranya Malave DATE: September 01, 2017 TIME: 11:03 AM CSN: [id number] PT ED Observed: 09/01/2017 Status: COMPLETED Source: [place] 10:31 AM [facility] OTHER [place] REPOSITORY HNO ID: [id number] Author: Gris (Rn) Pau RN Service: Nursing Author Type: Registered Nurse Type: Patient Education Filed: 09/01/2017 10:31 AM Note Text: PRE OP LEARNING ASSESSMENT PROCEDURE/SURGERY: SURGERY: rectal exam READINESS TO LEARN COGNITIVE ABILITY: Alert and oriented MOTIVATION TO LEARN: Interested FAMILY SUPPORT: High - Very involved in pt care PATIENT LEARNS BEST BY: Individual Instruction FACTORS AFFECTING LEARNING: None PHYSICAL LIMITATIONS AFFECTING LEARNING: None Electronically Signed By: Gris Mai RN In Department: [facility] SURGERY HISTORY PHYSICAL Observed: 09/01/2017 Status: COMPLETED Source: [place] 10:28 AM [facility] REPOSITORY HNO ID: [id number] Author: Earline Samson Service: General Surgery Author Type: Physician Type: HANDP Filed: 09/01/2017 10:28 AM Note Text: UPDATED HISTORY AND PHYSICAL EXAMINATION PATIENT NAME: Saranya Malave DATE of SERVICE: 09/01/2017 TIME of SERVICE: 10:28 AM PHYSICAL EXAM MUST BE COMPLETED ON ADMISSION The History and Physical (completed in the past 30 days) has been reviewed and the patient has been examined. The contents accurately reflect the patient's condition with the following additions or revisions since the HANDP was completed. Examination indicates no changes This HANDP can be found in the EMR dated 07/22/2017. SIGNATURE: Earline Samson MD DATE: September 01, 2017 TIME: 10:28 AM OPERATIVE NO Observed: 09/01/2017 Status: COMPLETED Source: [place] 12:00 AM [facility] REPOSITORY HNO ID: [id number] Author: Earline Samson Service: General Surgery Author Type: Physician Type: Operative Report Filed: 09/02/2017 7:35 AM Note Text: [facility]- Operative Report SARANYA MALAVE : 1990 AGE: 27 SEX: F ACCTNUM: [id number] [facility]: [facility] LOCATION: [facility] ATTENDING PHYSICIAN: Earline Samson M.D. DATE OF PROCEDURE: 09/01/2017 SURGEON: Earline Samson M.D. COMMUNITY RELATIONS LIAISON: NONE ANESTHESIA: Monitored anesthesia. PREOPERATIVE DIAGNOSIS(ES): [id number]. POSTOPERATIVE DIAGNOSIS(ES): [id number]. NAME OF OPERATION: Rectal exam under anesthesia and fistulotomy. INDICATIONS: The patient is a 27-year-old female who presents with recurrent rectal abscess. She now presents for rectal exam under anesthesia to evaluate for anal fistula. Risks including bleeding, infection, and incontinence were explained and she would like to proceed. ESTIMATED BLOOD LOSS: Minimal blood loss. PROCEDURE START TIME: 11:43 a.m. PROCEDURE END TIME: 12:02 p.m. PROCEDURE: The patient was identified and brought to the operating room, placed in supine position. After monitored anesthesia was obtained, she was placed into the high lithotomy position. The perianal area was then prepped and draped in sterile fashion. The abscess was located in the left anterior position. The internal opening was located in the anterior midline. A pudendal block was performed with Exparel, 5 mL placed bilaterally. The Exparel was mixed with 20 mL and 10 mL of saline. The anoderm overlying the abscess was anesthetized with a local anesthetic. The abscess cavity was identified. The probe was then placed into the anterior internal opening. The anoderm was then divided with scalpel and cautery. Care was taken to avoid injury to the sphincter muscles. All of the granulation tissue was removed, some was sent for pathology to rule out Crohn disease. There was no clinical concern for Crohn's. The wound was then irrigated. Hemostasis was obtained with cautery. The incision was covered with Silvadene and dry gauze. All counts were correct at the end of the case. The patient tolerated the procedure well. She was taken to recovery room in good condition. Earline Samson M.D. General Surgery KED:[id number] NURSING PROG Observed: 08/29/2017 Status: COMPLETED Source: [place] 7:58 AM [facility] OTHER CAMPUS REPOSITORY [facility] ID: [id number] Author: Linda (Rn) ROMAN Rankin Service: (none) Author Type: Registered Nurse Type: Nursing Progress Note Filed: 08/29/2017 8:01 AM Note Text: PACC Nurse Progress Note ? History AND Physical: PACC Visit Date: NA Original HANDP Date: 07/22/17 with Nerissa Kwok ([facility]) ED visit Date: N/A Outside HANDP Scanned Date: N/A ? ? Labs Within Last 6 Months: CBC: Date 07/13/17 WBC 12.21 (patient prescribed antibiotic) BMP/CMP: Date 07/13/17 WNL UA: Date 07/13/17 abnormal Urine C+S: Date 07/13/17 no growth ? Imaging Within Last 12 Months: CT of abdomen/pelvis 07/13/17 ? Cardiac Testing: N/A ? Last Menstrual Period: LMP Date: 08/06/17 Postmenopausal >1yr: No, S/P Hysterectomy: No ? BMI Percentile (PEDS): N/A ? Risk Assessment: N/A ? Anesthesia Review: N/A ? Narrative: Pre-op instructions below given to patient on 08/13/17 for procedure scheduled for 08/14/17. ? ? Pre-op Considerations: LMP 08/06/17 ? Chart Check: COMPLETED ? ? Linda Rankin RN August 29, 2017 8:00 AM PATIENT PREOPERATIVE INSTRUCTIONS No ref. provider found has scheduled you for your procedure at this surgery center: [facility]: [phone] -- [address] [id number]. Please read below carefully for your personalized instructions. Blood Thinning Medications: - You may take Tylenol (Acetaminophen) or any of your pain medications that do not contain aspirin or NSAIDS as needed. Dietary Restrictions: - No solid food after midnight. - You may have 12 ounces of clear liquids (water, clear juices such as apple juice or gatorade, carbonated beverages, clear tea, black coffee, jello) until 2 hours before scheduled arrival at facility. - Do not drink any alcohol after midnight the night before your surgery. Pain Medications: [place] Medications: Approved medications to take the morning of surgery with a sip of water: Zyrtec If you start any new medications after today's visit, please contact the surgery center above. Important Reminders: - Candy, mints, gum and tobacco products are NOT permitted the morning of surgery. - Hearing aids, dentures and glasses may be worn the morning of surgery. - NO jewelry, body piercings, makeup, nail haitian, hairpins or contacts are to be worn the day of surgery. Shower with an antibacterial soap. Don't apply any lotions, creams, powders, or fragrances after bathing. If you develop symptoms such as a fever, cold, or flu, or have other changes to your health within TWO DAYS of scheduled surgery or the morning of surgery, please contact the surgery center above. Personal Belongings: - Leave ALL valuables and money at home or with family members. For Outpatient Procedures: - YOU MUST HAVE A RESPONSIBLE SERVICE LINE COORDINATOR TAKE YOU HOME. A MUSIC THERAPIST OR FRONT DESK SUPERVISOR CANNOT BE MADE A RESPONSIBLE SERVICE LINE COORDINATOR. - We recommend that a responsible person stays with you overnight to take care of you. - You cannot stay in a hotel alone after outpatient surgery. You will not be permitted to have your surgery, if you do not have someone to take care of you. Arrival Time for Surgery: - The Surgery Center or hospital where you are having surgery will call the afternoon before surgery (or Friday for Friday surgery) with a scheduled arrival time. - If you have not heard by 4 pm, please contact the surgery center above. Please be aware that emergency situations arise, which may delay or change your surgical time. If this happens, we will notify you as soon as possible and regret any inconvenience. Linda Rankin RN ? HOSP Observed: 08/15/2017 Status: COMPLETED Source: [place] 12:00 AM CLINIC OTHER CAMPUS REPOSITORY Patient:Saranya Malave MRN: <[id number]> Height:5' 4(1.626 m) Weight:161 lb (73.029 kg) Outpatient Medications as of 09/01/17: HYDROcodone-acetaminophen (NORCO) 5-325 mg per tablet cetirizine (ZYRTEC) 10 mg tablet Levonorgestrel-Ethinyl Estrad 0.1mg - 20mcg per tablet Admission/Clinic Administered Medications as of 09/01/17: lactated ringers infusion cefOXitin 2 g in NaCl 0.9% 100 mL MB+ (MEFOXIN) Problem List: Oral contraception initial prescription [Z30.011] Screening for malignant neoplasm of the cervix [Z12.4] 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 C/O Yeast infection- vaginal itching and whitish discharge. H/O some yeast infections when on antibiotics in the past. Is on omnicef and Flagyl. Requesting med for yeast inefcetion. Pending Prescriptions Disp Refills FLUCONAZOLE 100 MG TABLET 3 tablet Sig: Take 1 tablet by mouth once daily for 3 days. Please review and advise. Linda Samson MD 08/20/2017 10:29 AM Signed done Linda Aguirre RN 08/20/2017 10:40 AM Signed MD message noted. Encounter closed. Progress Notes ([facility]): Linda Aguirre RN 08/13/2017 10:03 AM Signed Patient called, tearful with anxiety about surgery tomorrow and wonders if she could put it off for a couple of weeks Also has vacation planned for next Friday to [place]. States pain level is 2/[address] Samson's opinion. Please advise, patient would like call back. [phone] (home) [phone] (cell) Angel Lay MD 08/13/2017 10:[address] Samson is off today, but on review of the records, there is a good chance that her symptoms will get worse if she waits. It is ultimately her choice. She must realize that she could be hospitalized on her vacation if things worsen. Please let us know today what her decision is. Linda Aguirre RN 08/13/2017 1:27 PM Signed Spoke with patient and advised of information per MD. Patient verbalized understanding. She verbalizes that she will keep surgery for tomorrow as scheduled. Advised her that the surgeons will be made aware. No further questions at this time. MD message noted. BRIEF OP NOT Observed: 08/14/2017 Status: COMPLETED Source: [place] 3:19 PM [facility] OTHER [place] REPOSITORY HNO ID: [id number] Author: Earline Samson Service: General Surgery Author Type: Physician Type: Brief Op Note Filed: 08/14/2017 3:20 PM Note Text: Surgery cancelled - patient would like to hold off on surgery until after her vacation. NURSING PROG Observed: 08/14/2017 Status: COMPLETED Source: [place] 2:52 PM [facility] OTHER [place] REPOSITORY HNO ID: [id number] Author: Jennifer (Rn) ROMAN Corral Service: Nursing Author Type: Registered Nurse Type: Nursing Progress Note Filed: 08/14/2017 2:54 PM Note Text: Nursing Progress Note Patient Name: Saranya Malave [facility] Pt states she does not want to have the surgery. Asking to talk with Dr Samson. RN explained Dr is in surgery now and that it will be fine to wait until after she speaks with to start the IV. Call placed to OR room and Dr Samson and anesthesia informed of pt's request. Dr to talk with pt when done with present surgery. This note was completed by: Jennifer Corral RN PT ED Observed: 08/14/2017 Status: COMPLETED Source: [place] 2:34 PM [facility] REPOSITORY HNO ID: [id number] Author: Jennifer CeballosRn) ROMAN Corral Service: Nursing Author Type: Registered Nurse Type: Patient Education Filed: 08/14/2017 2:34 PM Note Text: PRE OP LEARNING ASSESSMENT PROCEDURE/SURGERY: SURGERY: Rectal EUA READINESS TO LEARN COGNITIVE ABILITY: Alert and oriented MOTIVATION TO LEARN: Eager Interested FAMILY SUPPORT: High - Very involved in pt care PATIENT LEARNS BEST BY: Individual Instruction Verbal Instruction Multiple Methods FACTORS AFFECTING LEARNING: None PHYSICAL LIMITATIONS AFFECTING LEARNING: None Electronically Signed By: Jennifer Corral RN In Department: [facility] SURGERY NURSING PROG Observed: 08/13/2017 Status: COMPLETED Source: [place] 8:09 AM [facility] REPOSITORY HNO ID: [id number] Author: Linda CeballosRn) ROMAN Rankin Service: (none) Author Type: Registered Nurse Type: Nursing Progress Note Filed: 08/13/2017 9:49 AM Note Text: PACC Nurse Progress Note History AND Physical: PACC Visit Date: NA Original HANDP Date: 07/22/17 with Nerissa Kwok ([facility]) ED visit Date: N/A Outside HANDP Scanned Date: N/A Labs Within Last 6 Months: CBC: Date 07/13/17 WBC 12.21 (patient prescribed antibiotic) BMP/CMP: Date 07/13/17 WNL UA: Date 07/13/17 abnormal Urine C+S: Date 07/13/17 no growth Imaging Within Last 12 Months: CT of abdomen/pelvis 07/13/17 Cardiac Testing: N/A Last Menstrual Period: LMP Date: 08/06/17 Postmenopausal >1yr: No, S/P Hysterectomy: No BMI Percentile (PEDS): N/A Risk Assessment: N/A Anesthesia Review: N/A Narrative: Called patient to review pre-op instructions. Patient identified by name and date of . Verbalized understanding of instructions. Pre-op Considerations: LMP 08/06/17 Chart Check: COMPLETED Linda Rankin RN August 13, 2017 8:09 AM PROGRESS Observed: 08/12/2017 Status: COMPLETED Source: [place] 3:32 PM [facility] REPOSITORY O ID: [id number] Author: Nerissa (Vehicle Body Maker) Jose Alberto Service: (none) Author Type: Nurse Practitioner Type: Progress Notes Filed: 08/13/2017 4:18 PM Note Text: ESTABLISHED PATIENT Saranya Malave is a 27 year old female presenting for Recurrent Perirectal Abscess. HISTORY OF PRESENT ILLNESS Saranya is 3 weeks post op from a perirectal abscess IANDD, over the weekend she started to notice pain and yellow drainage. She tried warm soaks with no relief. Her pain is a 4/10 but worsens daily. On exam there is a firm induration on the left of her anus that produces pus from the anus when pressure is applied, she is very tender. Dr. Samson in for exam and suggests pt go to the OR. Rx for Omnicef and Flagyl to [facility] in [place]. 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 - Perirectal abscess 07/2017 - Sprain, sacroiliac BWC PAST SURGICAL HISTORY Procedure Laterality Date - CRYOSURGERY Social History Marital status: Single Spouse name: Years of education: Number of children: Social History Main Topics Smoking status: Current Every Day Smoker Packs/day: 0.00 Years: 0.00 Smokeless tobacco: Never Used Alcohol use: Yes Comment: occ Drug use: No Other Topics Concern Caffeine Concern Yes Comment:alot 2-3pots of coffee a day Special Diet No Comment:regular Exercise Yes Comment:walk dog Allergies: ALLERGIES No Known Allergies Medications: cefdinir (OMNICEF) 300 mg capsule Take 1 capsule by mouth twice daily for 10 days. metroNIDAZOLE (FLAGYL) 500 mg tablet Take 1 tablet by mouth three times daily for 10 days. HYDROcodone-acetaminophen (NORCO) 5-325 mg per tablet cetirizine (ZYRTEC) 10 mg tablet Take 10 mg by mouth. polyethylene glycol 3350 (MIRALAX) 17 gram/dose powder Take 17 g by mouth once daily. Levonorgestrel-Ethinyl Estrad 0.1mg - 20mcg per tablet Take 1 tablet by mouth once daily. 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 Rectal: Positive findings: See HPI. Lymph Nodes: No inguinal lymphadenopathy.. ASSESSMENT/PLAN: 1. 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 We started her on Omnicef and Flagyl and will take her to the OR for evaluation on . - METRONIDAZOLE 500 MG TABLET TRENT SharmaOV Observed: 08/12/2017 Status: COMPLETED Source: [place] 2:30 PM [facility] REPOSITORY Office Visit (GENKENRICKE) SARANYA MALAVE ([id number]) 1990 F Date Time Provider Department 08/12/17 2:30 PM NERISSA ABRAMS (UNIQUE) MARIA GUADALUPE During your visit today, we recorded the following information about you: Temperature 98.6 degrees Nerissa Abrams APRN.CNP 08/13/2017 4:18 PM Signed ESTABLISHED PATIENT Saranya Malave is a 27 year old female presenting for Recurrent Perirectal Abscess. HISTORY OF PRESENT ILLNESS Saranya is 3 weeks post op from a perirectal abscess IANDD, over the weekend she started to notice pain and yellow drainage. She tried warm soaks with no relief. Her pain is a 4/10 but worsens daily. On exam there is a firm induration on the left of her anus that produces pus from the anus when pressure is applied, she is very tender. Dr. Samson in for exam and suggests pt go to the OR. Rx for Omnicef and Flagyl to [facility] in [place]. 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 - Perirectal abscess 07/2017 - Sprain, sacroiliac BWC PAST SURGICAL HISTORY Procedure Laterality Date - CRYOSURGERY Social History Marital status: Single Spouse name: Years of education: Number of children: Social History Main Topics Smoking status: Current Every Day Smoker Packs/day: 0.00 Years: 0.00 Smokeless tobacco: Never Used Alcohol use: Yes Comment: occ Drug use: No Other Topics Concern Caffeine Concern Yes Comment:alot 2-3pots of coffee a day Special Diet No Comment:regular Exercise Yes Comment:walk dog Allergies: ALLERGIES No Known Allergies Medications: cefdinir (OMNICEF) 300 mg capsule Take 1 capsule by mouth twice daily for 10 days. metroNIDAZOLE (FLAGYL) 500 mg tablet Take 1 tablet by mouth three times daily for 10 days. HYDROcodone-acetaminophen (NORCO) 5-325 mg per tablet cetirizine (ZYRTEC) 10 mg tablet Take 10 mg by mouth. polyethylene glycol 3350 (MIRALAX) 17 gram/dose powder Take 17 g by mouth once daily. Levonorgestrel-Ethinyl Estrad 0.1mg - 20mcg per tablet Take 1 tablet by mouth once daily. 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 Rectal: Positive findings: See HPI. Lymph Nodes: No inguinal lymphadenopathy.. ASSESSMENT/PLAN: 1. 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 We started her on Omnicef and Flagyl and will take her to the OR for evaluation on . - METRONIDAZOLE 500 MG TABLET Nerissa Abrams APRN.CLINICAL RESEARCH MANAGEMENT ASSOCIATE Referring Provider: SELF [200] Allergies As of Date: 08/12/2017 (No Known Allergies) Date Reviewed: 08/12/2017 Reviewed by: Nerissa (Unique) Jose Alberto - Fully Assessed Reason for Visit: Recurrent Perirectal Abscess [Other] Primary Visit Diagnosis:Anal fistula [K60.3] Order(s):cefdinir (OMNICEF) 300 mg capsuleTake 1 capsule by mouth twice daily for 10 days.Disp: 20 capsuleRfl: 0 metroNIDAZOLE (FLAGYL) 500 mg tabletTake 1 tablet by mouth three times daily for 10 days.Disp: 30 tabletRfl: 0 Prescriptions as of 08/12/2017 Sig: CEFDINIR 300 MG CAPSULE Take 1 capsule by mouth twice* METRONIDAZOLE 500 MG TABLET Take 1 tablet by mouth three * HYDROCODONE 5 MG-ACETAMINOPHE* CETIRIZINE 10 MG TABLET Take 10 mg by mouth. POLYETHYLENE GLYCOL 3350 17 G* Take 17 g by mouth once daily. LEVONORGESTREL-ETHINYL ESTRAD* Take 1 tablet by mouth once d* Problem List As Of Date 08/12/2017 Noted Resolved Oral contraception initial prescription [Z30.01*INVALID FOR* Screening for malignant neoplasm of the cervix *INVALID FOR* Displacement of lumbar intervertebral disc with*INVALID FOR* Perirectal abscess [K61.1] INVALID FOR* Cold intolerance [R68.89] INVALID FOR* Dry skin [L85.3] INVALID FOR* Anal fistula [K60.3] INVALID FOR* More... Prescriptions ordered this encounter Disp Refills Start End CEFDINIR 300 MG CAPSULE 14 c* 0 08/12/2017 08/12/2017 Route: ORAL Sig: Take 1 capsule by mouth twice daily for 7 days. METRONIDAZOLE 500 MG TABLET 30 t* 0 08/12/2017 08/12/2017 Class: Print RX Route: ORAL Sig: Take 1 tablet by mouth three times daily for 10 days. CEFDINIR 300 MG CAPSULE 20 c* 0 08/12/2017 08/22/2017 Route: ORAL Sig: Take 1 capsule by mouth twice daily for 10 days. METRONIDAZOLE 500 MG TABLET 30 t* 0 08/12/2017 08/22/2017 Route: ORAL Sig: Take 1 tablet by mouth three times daily for 10 days. Medications Discontinued During This Encounter cefdinir (OMNICEF) 300 mg capsule 14 c* 0 08/12/2017 08/12/2017 Route: ORAL Sig: Take 1 capsule by mouth twice daily for 7 days. Disc: Reason for discontinue is not on file. metroNIDAZOLE (FLAGYL) 500 mg tablet 30 t* 0 08/12/2017 08/12/2017 Class: Print RX Route: ORAL Sig: Take 1 tablet by mouth three times daily for 10 days. Disc: Reason for discontinue is not on file. Encounter Status:Closed by NERISSA ABRAMS on 08/13/17 HOSP Observed: 08/12/2017 Status: COMPLETED Source: [place] 12:00 AM CLINIC OTHER CAMPUS REPOSITORY Patient:Saranya Malave MRN: <[id number]> Height:5' 4(1.626 m) Weight:161 lb 13.1 oz (73.4 kg) Outpatient Medications as of 08/14/17: cefdinir (OMNICEF) 300 mg capsule metroNIDAZOLE (FLAGYL) 500 mg tablet HYDROcodone-acetaminophen (NORCO) 5-325 mg per tablet cetirizine (ZYRTEC) 10 mg tablet polyethylene glycol 3350 (MIRALAX) 17 gram/dose powder Levonorgestrel-Ethinyl Estrad 0.1mg - 20mcg per tablet Admission/Clinic Administered Medications as of 08/14/17: Patient has no admission medications. 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 States pain level is 2/[address] Samson's opinion. Please advise, patient would like call back. [phone] (home) [phone] (cell) Angel Lay MD 08/13/2017 10:[address] Samson is off today, but on review of the records, there is a good chance that her symptoms will get worse if she waits. It is ultimately her choice. She must realize that she could be hospitalized on her vacation if things worsen. Please let us know today what her decision is. Linda Aguirre RN 08/13/2017 1:27 PM Signed Spoke with patient and advised of information per MD. Patient verbalized understanding. She verbalizes that she will keep surgery for tomorrow as scheduled. Advised her that the surgeons will be made aware. No further questions at this time. MD message noted. Progress Notes ([facility]): Nerissa Abrams APRN.CLINICAL RESEARCH MANAGEMENT ASSOCIATE 08/13/2017 4:18 PM Signed ESTABLISHED PATIENT Saranya Malave is a 27 year old female presenting for Recurrent Perirectal Abscess. HISTORY OF PRESENT ILLNESS Saranya is 3 weeks post op from a perirectal abscess IANDD, over the weekend she started to notice pain and yellow drainage. She tried warm soaks with no relief. Her pain is a 4/10 but worsens daily. On exam there is a firm induration on the left of her anus that produces pus from the anus when pressure is applied, she is very tender. Dr. Samson in for exam and suggests pt go to the OR. Rx for Omnicef and Flagyl to [facility] in [place]. 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 [facility] - Perirectal abscess 07/2017 - Sprain, sacroiliac [facility] PAST SURGICAL HISTORY Procedure Laterality Date - CRYOSURGERY Social History Marital status: Single Spouse name: Years of education: Number of children: Social History Main Topics Smoking status: Current Every Day Smoker Packs/day: 0.00 Years: 0.00 Smokeless tobacco: Never Used Alcohol use: Yes Comment: occ Drug use: No Other Topics Concern Caffeine Concern Yes Comment:alot 2-3pots of coffee a day Special Diet No Comment:regular Exercise Yes Comment:walk dog Allergies: ALLERGIES No Known Allergies Medications: cefdinir (OMNICEF) 300 mg capsule Take 1 capsule by mouth twice daily for 10 days. metroNIDAZOLE (FLAGYL) 500 mg tablet Take 1 tablet by mouth three times daily for 10 days. HYDROcodone-acetaminophen (NORCO) 5-325 mg per tablet cetirizine (ZYRTEC) 10 mg tablet Take 10 mg by mouth. polyethylene glycol 3350 (MIRALAX) 17 gram/dose powder Take 17 g by mouth once daily. Levonorgestrel-Ethinyl Estrad 0.1mg - 20mcg per tablet Take 1 tablet by mouth once daily. 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 Rectal: Positive findings: See HPI. Lymph Nodes: No inguinal lymphadenopathy.. ASSESSMENT/PLAN: 1. 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 We started her on Omnicef and Flagyl and will take her to the OR for evaluation on . - METRONIDAZOLE 500 MG TABLET Nerissa Abrams APRN.CNP PROGRESS Observed: 07/22/2017 Status: COMPLETED Source: [place] 4:28 PM [facility] [place] REPOSITORY HNO ID: [id number] Author: Nerissa Abrams Service: (none) Author Type: Nurse Practitioner Type: Progress Notes Filed: 07/22/2017 4:35 PM Note Text: ESTABLISHED PATIENT Saranya Malave is a 27 year old female presenting for Follow Up (perirectal abcsess). HISTORY OF PRESENT ILLNESS Saranya is S/P IANDD of a perirectal abscess by Dr. Samson on 07/16, she is here today for a follow up visit. She reports minimal drainage and the feeling of a marble in the rectum. Her pain is significantly decreased. She denies fevers. On exam she is tender anteriorly and pressure produces a serosanguinous drainage. Advised to continue antibiotics and warm soaks. Follow up as needed. 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 - Sprain, sacroiliac [facility] PAST SURGICAL HISTORY Procedure Laterality Date - CRYOSURGERY Social History Marital status: Single Spouse name: Years of education: Number of children: Social History Main Topics Smoking status: Current Every Day Smoker Packs/day: 0.00 Years: 0.00 Smokeless tobacco: Never Used Alcohol use: Yes Comment: occ Drug use: No Other Topics Concern Caffeine Concern Yes Comment:alot 2-3pots of coffee a day Special Diet No Comment:regular Exercise Yes Comment:walk dog Allergies: ALLERGIES No Known Allergies Medications: metroNIDAZOLE (FLAGYL) 500 mg tablet Take 1 tablet by mouth three times daily for 7 days. cefdinir (OMNICEF) 300 mg capsule Take 1 capsule by mouth twice daily for 7 days. cetirizine (ZYRTEC) 10 mg tablet Take 10 mg by mouth. polyethylene glycol 3350 (MIRALAX) 17 gram/dose powder Take 17 g by mouth once daily. HYDROcodone-acetaminophen (NORCO) 5-325 mg per tablet Levonorgestrel-Ethinyl Estrad 0.1mg - 20mcg per tablet Take 1 tablet by mouth once daily. REVIEW OF SYSTEMS PAIN ASSESSMENT: CURRENTLY HAVING PAIN; see HPI GENERAL: No weight loss, malaise or fevers RESPIRATORY: Negative for cough, hemoptysis, wheezing, COPD, dyspnea or shortness of breath CARDIOVASCULAR: Negative for chest pain, leg swelling, hypertension, CHF or palpitations GI: No nausea, vomiting, or diarrhea SKIN: Negative for lesions, rash, and itching PHYSICAL EXAM Temp 36.7 ?C (98 ?F) (Temporal Artery) LMP 07/07/2017 General Appearance: Well appearing, alert, in no acute distress, well-hydrated, well nourished.. Skin: Skin color, texture, turgor normal, no suspicious rashes or lesions. Lungs: Lungs clear to auscultation. No wheezing, rhonchi, rales. Heart: RRR without murmur, gallop, or rubs. No ectopy. Rectal: Positive findings: See HPI. Assessment IMPRESSION/PLAN Follow up as needed, if pain increases, drainage or fevers CNOV Observed: 07/22/2017 Status: COMPLETED Source: [place] 11:00 AM [facility] REPOSITORY Office Visit ([facility]) SARANYA MALAVE ([id number]) 1990 F Date Time Provider Department 07/22/17 11:00 AM NERISSA ABRAMS ([facility]) Kari During your visit today, we recorded the following information about you: Temperature 98 degrees Nerissa Abrams APRN.[facility] 07/22/2017 4:35 PM Signed ESTABLISHED PATIENT Saranya Malave is a 27 year old female presenting for Follow Up (perirectal abcsess). HISTORY OF PRESENT ILLNESS Saranya is S/P IANDD of a perirectal abscess by Dr. Samson on 07/16, she is here today for a follow up visit. She reports minimal drainage and the feeling of a marble in the rectum. Her pain is significantly decreased. She denies fevers. On exam she is tender anteriorly and pressure produces a serosanguinous drainage. Advised to continue antibiotics and warm soaks. Follow up as needed. 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 - Sprain, sacroiliac [facility] PAST SURGICAL HISTORY Procedure Laterality Date - CRYOSURGERY Social History Marital status: Single Spouse name: Years of education: Number of children: Social History Main Topics Smoking status: Current Every Day Smoker Packs/day: 0.00 Years: 0.00 Smokeless tobacco: Never Used Alcohol use: Yes Comment: occ Drug use: No Other Topics Concern Caffeine Concern Yes Comment:alot 2-3pots of coffee a day Special Diet No Comment:regular Exercise Yes Comment:walk dog Allergies: ALLERGIES No Known Allergies Medications: metroNIDAZOLE (FLAGYL) 500 mg tablet Take 1 tablet by mouth three times daily for 7 days. cefdinir (OMNICEF) 300 mg capsule Take 1 capsule by mouth twice daily for 7 days. cetirizine (ZYRTEC) 10 mg tablet Take 10 mg by mouth. polyethylene glycol 3350 (MIRALAX) 17 gram/dose powder Take 17 g by mouth once daily. HYDROcodone-acetaminophen (NORCO) 5-325 mg per tablet Levonorgestrel-Ethinyl Estrad 0.1mg - 20mcg per tablet Take 1 tablet by mouth once daily. REVIEW OF SYSTEMS PAIN ASSESSMENT: CURRENTLY HAVING PAIN; see HPI GENERAL: No weight loss, malaise or fevers RESPIRATORY: Negative for cough, hemoptysis, wheezing, COPD, dyspnea or shortness of breath CARDIOVASCULAR: Negative for chest pain, leg swelling, hypertension, CHF or palpitations GI: No nausea, vomiting, or diarrhea SKIN: Negative for lesions, rash, and itching PHYSICAL EXAM Temp 36.7 ?C (98 ?F) (Temporal Artery) LMP 07/07/2017 General Appearance: Well appearing, alert, in no acute distress, well-hydrated, well nourished.. Skin: Skin color, texture, turgor normal, no suspicious rashes or lesions. Lungs: Lungs clear to auscultation. No wheezing, rhonchi, rales. Heart: RRR without murmur, gallop, or rubs. No ectopy. Rectal: Positive findings: See HPI. Assessment IMPRESSION/PLAN Follow up as needed, if pain increases, drainage or fevers Referring Provider: NERISSA ABRAMS (CLINICAL RESEARCH MANAGEMENT ASSOCIATE) [[id number]] Allergies As of Date: 07/22/2017 (No Known Allergies) Date Reviewed: 07/22/2017 Reviewed by: Nerissa (Vehicle Body Maker) Jose Alberto - Fully Assessed Reason for Visit: Follow Up [171] Cmt: perirectal abcsess Primary Visit Diagnosis:Perirectal abscess [K61.1] Prescriptions as of 07/22/2017 Sig: METRONIDAZOLE 500 MG TABLET Take 1 tablet by mouth three * CEFDINIR 300 MG CAPSULE Take 1 capsule by mouth twice* CETIRIZINE 10 MG TABLET Take 10 mg by mouth. POLYETHYLENE GLYCOL 3350 17 G* Take 17 g by mouth once daily. HYDROCODONE 5 MG-ACETAMINOPHE* LEVONORGESTREL-ETHINYL ESTRAD* Take 1 tablet by mouth once d* Problem List As Of Date 07/22/2017 Noted Resolved Oral contraception initial prescription [Z30.01*INVALID FOR* Screening for malignant neoplasm of the cervix *INVALID FOR* Displacement of lumbar intervertebral disc with*INVALID FOR* Perirectal abscess [K61.1] INVALID FOR* Cold intolerance [R68.89] INVALID FOR* Dry skin [L85.3] INVALID FOR* Encounter Status:Closed by NERISSA ABRAMS on 07/22/17 CASE MANAGEM Observed: 07/17/2017 Status: COMPLETED Source: [place] 10:16 AM [facility] OTHER [place] REPOSITORY [facility] ID: [id number] Author: Nerissa (Rn) ROMAN Watkins Service: Case Management Author Type: Registered Nurse Type: Care Mgt Progress Note Filed: 07/17/2017 10:20 AM Note Text: CARE MANAGEMENT DISCHARGE NOTE SERVICE DATE: 07/17/2017 SERVICE TIME: 10:16 AM LOS: 0 days Admission Date: 07/16/2017 DISCHARGE ARRANGEMENT (list agency and phone number) Home Provider: krysten Phone: na CAREGIVER ASSESSMENT: Caregiver is ready, willing and able to meet the patient's needs as recommended by the inter-professional team? No Caregiver Needed Patient's transition needs and plan for meeting these needs: na Does the patient have an acute stroke diagnosis, or has the patient had a stroke during this admission? No HANDOFF COMMUNICATION: Primary Care Physician: Dr. Dye TRANSPORTATION ARRANGEMENTS: Car Family will transport ADDITIONAL CONTACT RESOURCES: na Needs Prior to Discharge: Ready for Discharge Discharge order written for today, patient discharged home with no services. Family will transport. SIGNATURE: Nerissa Watkins RN PATIENT NAME: Saranya Malave DATE: July 17, 2017 TIME: 10:16 AM PAGER/CONTACT #: [phone] CASE MGT INIT Observed: 07/17/2017 Status: COMPLETED Source: [facility] 10:00 AM CLINIC OTHER CAMPUS REPOSITORY HNO ID: [id number] Author: Nerissa (Rn) ROMAN Watkins Service: Case Management Author Type: Registered Nurse Type: Care Mgt Initial Assessment Filed: 07/17/2017 10:08 AM Note Text: CARE MANAGEMENT: ASSESSMENT AND DISCHARGE PLAN SERVICE DATE: 07/17/2017 SERVICE TIME: 10:00 AM PRIMARY CARE PHYSICIAN: Zafar Dye MD (confirmed with patient) ADMISSION STATUS: Observation Needs Prior to Discharge: None 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 No Advance Directive: Health Literacy: 1. How often do you need to have someone help you when you read instructions, pamphlets, or other written material from your doctor or pharmacy? Never - 1 2. How confident are you filling out medical forms by yourself? Extremely - 1 If Patient scores > 3 on either question, the following interventions were put into place: Patient did not score > 3 FUNCTIONAL AND COGNITIVE/BEHAVIORAL PRIOR TO ADMISSION: Baseline Mental Status: Alert AND Oriented, Person, Place , Time and Situation Functional Status: Independent Does Patient Currently Receive Any Community Services or Home Care? None Equipment Prior to Admission: None Has the Patient Been in a Chcf Facility in the Past 30 days? 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 No Caregiver Needed Patient's transition needs and plan for meeting these needs: na Does the patient have an acute stroke diagnosis, or has the patient had a stroke during this admission? No Medication Adherence: I am convinced of the importance of my prescription medication: Agree completely - 0 I worry that my prescription medication will do more harm than good to me Disagree completely - 0 I feel financially burdened by my [id number] expenses for my prescription medication: Disagree completely - 0 Patient is categorized as low risk < 2 Are you interested in bedside delivery of your medications? No Food Concerns: In the Last Month, Have You had Trouble Getting Food? No trouble getting food During the Last Month, Have You Worried Whether Your Food Would Run Out Before You Had Enough Money to Buy More? No Is the Patient Psychosocially Complex? No ASSESSMENT AND PLAN: Medical Needs: None Psychosocial Needs: None FREEDOM OF CHOICE EXPLAINED: N/A POTENTIAL TRANSITION PLANS No Services Indicated Met with patient at bedside, introduced self/role of TCC. Patient admitted for surgical treatment of Perirectal abscess with pain. Patient lives at home with her boyfriend and is independent with ADLs and IADLs. Anticipate no services at discharge. CM will remain available for discharge planning needs.? SIGNATURE: Nerissa Watkins RN PATIENT NAME: Saranya Malave DATE: July 17, 2017 TIME: 10:00 AM PAGER/CONTACT #: [phone] CNDS Observed: 07/17/2017 Status: COMPLETED Source: [place] 9:36 AM CLINIC OTHER CAMPUS REPOSITORY O ID: [id number] Author: Nerissa Abrams Service: General Surgery Author Type: Nurse Practitioner Type: Discharge Summaries Filed: 07/17/2017 9:39 AM Note Text: DISCHARGE SUMMARY PATIENT NAME: Saranya Malave Admission Information Admission Information ADMIT DATE: 07/16/2017 DISCHARGE DATE:07/17/17 MY DOCTORS AND MEDICAL TEAM: My Main Hospital Doctor: Earline Samson Primary Care Provider: Zafar Dye MD My Medical Team Members: Treatment Team: Attending Provider: Earline Samson MY CONDITION AT DISCHARGE: Stable REASON I WAS IN THE HOSPITAL: Perirectal abscess with pain SUMMARY OF WHAT HAPPENED WHILE I WAS IN THE HOSPITAL: surgical drainage of perirectal abscess, IV antibiotics and pain control OTHER PROBLEMS/DIAGNOSIS: Active Problems: Perirectal abscess Resolved Problems: * No resolved hospital problems. * OPERATIONS PERFORMED WHILE IN THE HOSPITAL: Rectal exam under anesthesia and drainage of perirectal abscess. IMPORTANT TEST/PROCEDURES: No procedures performed TEST RESULTS NOT AVAILABLE AT THIS TIME: No pending results Discharge Disposition Discharge Disposition: Home With Self Care Activity When You Leave the Hospital Go home and rest. Resume normal activity after: One week May bathe and shower No exercise for: One week No prolonged bedrest, longer than 8 hours in a 24 hour period No sexual activity for: 2 weeks No swimming or hot tubs for: 30 days No walking restrictions Diet Instructions Drink 6 to 8 glasses of fluids per day Resume your pre-hospital diet For Pain When You Leave the Hospital Continue taking previously prescribed pain medications as directed No alcohol or driving while on pain medication Other: Warm baths at home 3 x daily You should use an [id number] stool softener (Docusate sodium) and/or a fiber supplement (Metamucil, Fiber Con) every day while taking prescribed pain medication Wound/Surgical Site Care Some bleeding from the wound/surgical site can be expected. If excessive, see a doctor at once Call Your Doctor If There is severe pain at the operative site You have lightheadedness, fainting, or confusion You have persistent nausea/vomiting over 24 hours You have persistent or heavy bleeding You have redness, swelling, pus or drainage from the wound Your temperature is greater than 101F Follow Up Appointments Follow-Up Appointment When: In 1 week Patient/Parents to call for appointment?: Yes Earline Kari Samson [phone] [address] PCP Requested Referral Additional Provider to Provider Information: No notes on file FOLLOW-UP APPOINTMENTS ALREADY SCHEDULED WITH A [facility] PROVIDER Future Appointments Date Time Provider Department Center 07/22/2017 11:00 AM Nerissa Abrams [facility] DISCHARGE MEDICATION: Current Discharge Medication List START taking these medications metroNIDAZOLE (FLAGYL) 500 mg Take 500 mg by mouth three times daily. Qty: 21 tablet Refills: 0 cefdinir (OMNICEF) 300 mg Take 300 mg by mouth twice daily. Qty: 14 capsule Refills: 0 CONTINUE these medications which have NOT CHANGED cetirizine (ZyrTEC) 10 mg Take 10 mg by mouth. HYDROcodone-acetaminophen (NORCO) 1 tablet Take 1 tablet by mouth every 6 hours as needed for Pain. Earliest Fill Date: 07/15/17 Qty: 12 tablet Refills: 0 Associated Diagnoses:Perirectal abscess polyethylene glycol 3350 (MIRALAX, GLYCOLAX) 17 g Take 17 g by mouth once daily. Qty: 510 g Refills: 1 Associated Diagnoses:Perirectal abscess Levonorgestrel-Ethinyl Estrad 1 tablet Take 1 tablet by mouth once daily. Qty: 1 Package Refills: 11 STOP taking these medications cephALEXin (KEFLEX) 500 mg Comments: Reason for Stopping: hydrocortisone (HEMORRHOIDAL HC) 25 mg Comments: Reason for Stopping: Discharge Physical Exam: VITAL SIGNS: BP 107/65 Pulse 78 Temp 36.9 ?C (98.4 ?F) (Oral) Resp 18 Ht 162.6 cm (5' 4) Wt 73.4 kg (161 lb 13.1 oz) LMP 07/07/2017 SpO2 98% BMI 27.78 kg/m? GENERAL: Alert, no distress, cooperative SKIN: Skin color, texture, turgor normal. No rashes or lesions. LUNGS: Lungs clear to auscultation, Good diaphragmatic excursion CARDIAC: Normal S1 and S2; no rubs, murmurs, or gallops ABDOMEN: Abdomen soft, non-tender, BS normal, No masses or organomegaly RECTAL: Hemorrhoid present External, minimal bloody drainage, perirectal area remains tender TIME OF CARE: Discharge Management: I personally spent greater than 30 minutes involved in the discharge management of this patient. SIGNATURE: Nerissa Abrams APRN.CNP PAGER/CONTACT #: DATE: July 17, 2017 TIME: 9:37 AM NURSING PROG Observed: 07/17/2017 Status: COMPLETED Source: [place] 8:10 AM CLINIC OTHER CAMPUS REPOSITORY O ID: [id number] Author: Latosha (Rn) ROMAN Humphries Service: Nursing Author Type: Registered Nurse Type: Nursing Progress Note Filed: 07/17/2017 10:40 AM Note Text: Nursing Progress Note Patient Name: Saranya Malave Patient Location: [facility][id number] Daily Note:0810 - Resting in bed watching TV. IV LR stopped at this time and HL flushed. IV Rocephin hung. Rectal pain 2/10 on scale and denies the need for pain medication. Denies any rectal drainage at this time. 0840 - Resting ib bed watching TV. IV Rocephin completed. HL flushed and IV LR resumed. 1035 - Reviewed discharge instructions with pt and verbalized understanding of. This note was completed by: Latosha Humphries RN NURSING PROG Observed: 07/17/2017 Status: COMPLETED Source: [place] 12:19 AM [facility] REPOSITORY HNO ID: [id number] Author: Dianna CeballosRn) Rhona, RN Service: (none) Author Type: Registered Nurse Type: Nursing Progress Note Filed: 07/17/2017 5:57 AM Note Text: Nursing Progress Note Patient Name: Saranya Malave Patient Location: [place] [address] [address] Daily Note: 2300 assumed care of pt at this time. No c/o's voiced. Denies pain, nausea. IVF infusing. Pt reports scant drng on peripad. Visitor at bedside. 0100 sleeping without c/o's pain,nausea. IVF infusing. Afebrile. 0300 sleeping without c/o's pain,nausea. IVF infusing. Afebrile. 0500 sleeping without c/o's pain,nausea. IVF infusing. Afebrile. This note was completed by: Dianna Melgoza RN NURSING PROG Observed: 07/16/2017 Status: COMPLETED Source: [place] 10:52 PM [facility] REPOSITORY HNO ID: [id number] Author: Tasneem CeballosRn) ROMAN Bryant Service: (none) Author Type: Registered Nurse Type: Nursing Progress Note Filed: 07/16/2017 10:57 PM Note Text: Nursing Progress Note Patient Name: Saranya Malave Patient Location: [facility] [id number] Daily Note: 1915: Assumed care of pt. AIR VALVE MECHANIC here to take patient to OR. 2124: Pt returned to room from OR. Denies pain at this time. Vee pad, ice pack held in place with mesh panties. Small amt serosanginous IVF infusing. Pt denies further needs at this time. Family at bedside. This note was completed by: Tasneem Bryant RN BRIEF OP NOT Observed: 07/16/2017 Status: COMPLETED Source: [place] 8:42 PM [facility] REPOSITORY HNO ID: [id number] Author: Earline Samson Service: General Surgery Author Type: Physician Type: Brief Op Note Filed: 07/16/2017 8:45 PM Note Text: BRIEF OPERATIVE / PROCEDURE NOTE LOG ID: [id number] SURGERY/PROCEDURE DATE: 07/16/2017 INCISION/PROCEDURE START TIME: 8:12 PM INCISION CLOSE/PROCEDURE END TIME: 8:25 PM SURGEON(S)/PROCEDURALIST(S) AND COMMUNITY RELATIONS LIAISON(S): Surgeon(s) and Role: * Earline Samson - Primary No Additional Staff SURGERY/PROCEDURE(S): IANDD perirectal abscess ANESTHESIA: Monitored Anesthesia Care FINDINGS: see report ESTIMATED BLOOD LOSS: min SPECIMENS: culture COMPLICATIONS: None PRE-OP/PRE-PROCEDURE DIAGNOSIS: perirectal abscess POST-OP/POST-PROCEDURE DIAGNOSIS: same # [id number] SIGNATURE: Earline Samson MD PATIENT NAME: Saranya Malave DATE: July 16, 2017 TIME: 8:42 PM PAGER/CONTACT #: RADHA POST Observed: 07/16/2017 Status: COMPLETED Source: [place] 8:37 PM [facility] REPOSITORY HNO ID: [id number] Author: Steve Kay MD Service: Anesthesiology Author Type: Anesthesiologist Type: Anesthesia PostOp Filed: 07/16/2017 8:39 PM Note Text: POST ANESTHESIA EVALUATION NOTE SERVICE DATE: 07/16/2017 SERVICE TIME: 2036 : 1990 Vitals: 07/16/171657 Temp: 37.1 ?C (98.8 ?F) 07/16/171657 BP: 138/78 07/16/17165707/16/171949 Pulse: 114 103 07/16/17165707/16/171949 Resp: 18 18 07/16/17165707/16/171949 SpO2: 96% 98% Validated Vital Signs: HR: 79; BP: 116/66; RR: 16; SpO2%: 99; Temperature: 36.7 POST ANES STATUS: No apparent anesthetic complications. The patient is appropriately hydrated with stable respiratory and cardiovascular status. Patient has safe and adequate airway control. The patient has appropriate pain relief and no significant post operative nausea or vomiting. The patient has achieved baseline mental status. Further assessment by Anesthesia Service: None Other Remarks: SIGNATURE: Steve Kay MD PATIENT NAME: Saranya Malave DATE: July 16, 2017 TIME: 8:39 PM PAGER/CONTACT #: WOUND Observed: 07/16/2017 Status: F Source: [place] CULTURE/STAIN 8:36 PM [facility] REPOSITORY Sp. Request/Comment: - Gel transport swab. Smear Result - Rare Gram negative bacilli --> ABNORMAL ALERT Rare --> ABNORMAL ALERT Gram positive cocci --> ABNORMAL ALERT Moderate Polymorphonuclear leukocytes Culture Result - No growth 5 days The discrepancy between culture result and gram stain result may be due to non-viability of the organism(s). Performed By: #### WCUL #### [facility] [address], [place] [address] Observed: 07/16/2017 Status: F Source: [place] ANAEROBE CULTURE 8:36 PM [facility] REPOSITORY Sp. Request/Comment: - Gel transport swab. Culture Result - Moderate Bacteroides fragilis --> ABNORMAL ALERT Bacteroides spp. are intrinsically resistant to ampicillin, penicillin, and aminoglycosides. --> ABNORMAL ALERT Antimicrobial susc eptibility testing is not routinely performed on anaerobes from non sterile sites or in mixed cultures. Call lab within 72 hours to initiate work up if clinically indicated. --> ABNORMAL ALERT Performed By: #### ANACUL #### [facility] [employer] [address], [place] [address] Observed: 07/16/2017 Status: F Source: [place] FUNGAL CULTURE 8:36 PM [facility] REPOSITORY Sp. Request/Comment: - Gel transport swab. Culture Result - No Fungus isolated after 33 days Performed By: #### FCUL #### [place] [id number] [place] [address] ANES PREOP Observed: 07/16/2017 Status: COMPLETED Source: [place] 7:41 PM [facility] REPOSITORY HNO ID: [id number] Author: Steve Kay MD Service: Anesthesiology Author Type: Anesthesiologist Type: Anesthesia PreOp Filed: 07/16/2017 7:42 PM Note Text: ANESTHESIOLOGY DAY OF SURGERY NOTE SERVICE DATE: 07/16/2017 SERVICE TIME: 1599 : 1990 Procedure(s) (LRB): EXAM UNDER ANESTHESIA RECTAL (N/A) Surgeon(s): Earline Samson Estimated body mass index is 27.78 kg/m? as calculated from the following: Height as of this encounter: 162.6 cm (5' 4). Weight as of this encounter: 73.4 kg (161 lb 13.1 oz). 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 - Sprain, sacroiliac BWC PAST SURGICAL HISTORY Procedure Laterality Date - CRYOSURGERY FAMILY HISTORY Problem Relation Age of Onset - Diabetes Maternal Grandmother - Diabetes Maternal Grandfather - Hypertension Maternal Grandfather - Hyperlipidemia Maternal Grandfather - Stroke Maternal Grandfather - Cancer Maternal Grandfather SKIN - Cancer Paternal Grandfather LUNG - Cancer Paternal Grandmother LUNG Social History: Social History Substance Use Topics - Smoking status: Current Every Day Smoker - Smokeless tobacco: Never Used - Alcohol use Yes Comment: occ No current facility-administered medications on file prior to encounter. Current Outpatient Prescriptions on File Prior to Encounter: cephALEXin (KEFLEX) 500 mg capsule Take 1 capsule by mouth twice daily for 5 days. cetirizine (ZYRTEC) 10 mg tablet Take 10 mg by mouth. HYDROcodone-acetaminophen (NORCO) 5-325 mg per tablet Take 1 tablet by mouth every 6 hours as needed for Pain for up to 5 days. polyethylene glycol 3350 (MIRALAX) 17 gram/dose powder Take 17 g by mouth once daily. hydrocortisone (HEMORRHOIDAL HC) 25 mg suppository 1 Suppository by RECTAL route twice daily. Levonorgestrel-Ethinyl Estrad 0.1mg - 20mcg per tablet Take 1 tablet by mouth once daily. Current Facility-Administered Medications: [MAR Hold due to Transfer] 0.9% NaCl 3-5 mL 3-5 mL INTRAVENOUS q 12 H Earline E Samson 5 mL at 07/16/17 1800 [MAR Hold due to Transfer] lactated ringers infusion 100 mL/hr INTRAVENOUS CONTINUOUS Earline E Samson Last Rate: 100 mL/hr at 07/16/17 1732 100 mL/hr at 07/16/17 1732 [MAR Hold due to Transfer] morphine 1-2 mg injection 1-2 mg INTRAVENOUS q 4 H PRN Earline E Samson 1 mg at 07/16/17 1727 [MAR Hold due to Transfer] ondansetron orally disintegrating 4 mg tab(s) (ZOFRAN ODT) 4 mg ORAL q 6 H PRN Earline E Samson Or [MAR Hold due to Transfer] ondansetron (PF) 4 mg injection (ZOFRAN) 4 mg INTRAVENOUS q 6 H PRN Earline E Samson [MAR Hold due to Transfer] cefTRIAXone 1 g in D5W 100 mL MB+ (ROCEPHIN) 1 g INTRAVENOUS q 24 H Earline E Samson Last Rate: 200 mL/hr at 07/16/17 1732 1 g at 07/16/17 173 [MAR Hold due to Transfer] metroNIDAZOLE 500 mg PREMIX piggyback (FLAGYL) 500 mg INTRAVENOUS q 8 H Earline Samson 500 mg at 07/16/17 173 midazolam (PF) 2 mg injection (VERSED) 2 mg INTRAVENOUS ONCE Steve Kay MD Allergies: ALLERGIES No Known Allergies DOS EXAM: Adequate NPO status: Yes Anesthetic risks, benefits, alternatives, personnel and consent discussed: Yes Patient agrees to proceed: Yes Previous Anesthesia: No history of adverse event. Airway Assessment: MP 1; Neck ROM: Full ROM without neurologic symptoms; Airway Evaluation: No significant abnormalities Symptoms of Sleep Apnea: None Dentition: Teeth intact Additional Physical Exam: Lungs: Patient health status unchanged since recent history and physical. See history and physical for exam findings. Cardiac: Patient health status unchanged since recent history and physical. See history and physical for exam findings. Blood Products: Not anticipated for this procedure. Anesthetic Plan: MAC with Sedation and Standard ASA Monitors Pain Management Plan: Parenteral or Oral ASA Class: 1E Chronic Beta Femi medication administered within 24 hours: N/A I have interviewed and examined the patient. I have reviewed the medical record and/or the pre-anesthesia evaluation, pertinent labs, and test results. Significant changes in the patient's condition since the History and Physical, not otherwise documented in primary service progress notes: No This contains updated information obtained within 48 hours of Surgery/Procedure. SIGNATURE: Steve Kay MD PATIENT NAME: Saranya Malave DATE: July 16, 2017 TIME: 7:41 PM CSN: [id number] HISTORY PHYSICAL Observed: 07/16/2017 Status: COMPLETED Source: [place] 4:46 PM CLINIC OTHER [facility] REPOSITORY [facility] ID: [id number] Author: Earline Samson Service: General Surgery Author Type: Physician Type: HANDP Filed: 07/16/2017 4:46 PM Note Text: UPDATED HISTORY AND PHYSICAL EXAMINATION PATIENT NAME: Saranya Malave DATE of SERVICE: 07/16/2017 TIME of SERVICE: 4:46 PM PHYSICAL EXAM MUST BE COMPLETED ON ADMISSION The History and Physical (completed in the past 30 days) has been reviewed and the patient has been examined. The contents accurately reflect the patient's condition with the following additions or revisions since the HANDP was completed. Examination indicates no changes This HANDP can be found in the EMR dated 07/14/19-. SIGNATURE: Earline Samson MD DATE: July 16, 2017 TIME: 4:46 PM NURSING PROG Observed: 07/16/2017 Status: COMPLETED Source: [place] 4:45 PM [facility] REPOSITORY HNO ID: [id number] Author: Latosha CeballosRnJennifer Broussard RN Service: Nursing Author Type: Registered Nurse Type: Nursing Progress Note Filed: 07/16/2017 6:39 PM Note Text: Nursing Progress Note Patient Name: Saranya Malave Patient [facility]/[id number] Daily Note:1645 - Pt admitted to the in stable condition. 1700 - Pt is AANDO x 3, pleasant and cooperative with care. Assessment and admission completed and noted; see epic. Pt c/o / pain to rectal area. Dr. Samson on the unit placing orders. Pt and family oriented to unit, call light system and safety; verbalizes understanding. 1715 - IV placed per orders. 1727 - Pt medicated for pain per orders; will continue to monitor. IVF and antibiotics infusing as ordered. Will continue to monitor. Call light within reach; safety maintained. 1830 - Pt resting in bed with family at bedside. Reports tolerable pain at this time. IVF and antibiotics infusing as ordered; will continue to monitor. Call light within reach; safety maintained. This note was completed by: Latosha Broussard RN ANES PREOP Observed: 07/16/2017 Status: COMPLETED Source: [place] 4:19 PM [facility] REPOSITORY HNO ID: [id number] Author: Steve Kay MD Service: Anesthesiology Author Type: Anesthesiologist Type: Anesthesia PreOp Filed: 07/16/2017 7:41 PM Note Text: ANESTHESIOLOGY DAY OF SURGERY NOTE SERVICE DATE: 07/16/2017 SERVICE TIME: 1600 : 1990 Procedure(s) (LRB): EXAM UNDER ANESTHESIA RECTAL (N/A) Surgeon(s): Earline Samson Estimated body mass index is 27.64 kg/m? as calculated from the following: Height as of 07/15/17: 162.6 cm (5' 4). Weight as of 07/15/17: 73 kg (161 lb). Most recent hematocrit and potassium results: Hematocrit 40.8 07/13/2017 Potassium 3.9 07/13/2017 ANES DOS/PREOP NOTE: Vitals: There were no vitals filed for this visit. ACTIVE PROBLEM LIST Oral Contraception Initial Prescription Screening for Malignant Neoplasm of The Cervix Displacement of Lumbar Intervertebral Disc Without Myelopathy 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 - Sprain, sacroiliac BWC PAST SURGICAL HISTORY Procedure Laterality Date - CRYOSURGERY FAMILY HISTORY Problem Relation Age of Onset - Diabetes Maternal Grandmother - Diabetes Maternal Grandfather - Hypertension Maternal Grandfather - Hyperlipidemia Maternal Grandfather - Stroke Maternal Grandfather - Cancer Maternal Grandfather SKIN - Cancer Paternal Grandfather LUNG - Cancer Paternal Grandmother LUNG Social History: Social History Substance Use Topics - Smoking status: Current Every Day Smoker - Smokeless tobacco: Never Used - Alcohol use Yes Comment: occ No current facility-administered medications on file prior to encounter. Current Outpatient Prescriptions on File Prior to Encounter: cetirizine (ZYRTEC) 10 mg tablet Take 10 mg by mouth. HYDROcodone-acetaminophen (NORCO) 5-325 mg per tablet Take 1 tablet by mouth every 6 hours as needed for Pain for up to 5 days. polyethylene glycol 3350 (MIRALAX) 17 gram/dose powder Take 17 g by mouth once daily. cephALEXin (KEFLEX) 500 mg capsule Take 1 capsule by mouth twice daily for 5 days. hydrocortisone (HEMORRHOIDAL HC) 25 mg suppository 1 Suppository by RECTAL route twice daily. Levonorgestrel-Ethinyl Estrad 0.1mg - 20mcg per tablet Take 1 tablet by mouth once daily. No current facility-administered medications for this encounter. Current Outpatient Prescriptions: cetirizine (ZYRTEC) 10 mg tablet Take 10 mg by mouth. Disp: Rfl: HYDROcodone-acetaminophen (NORCO) 5-325 mg per tablet Take 1 tablet by mouth every 6 hours as needed for Pain for up to 5 days. Disp: 12 tablet Rfl: 0 polyethylene glycol 3350 (MIRALAX) 17 gram/dose powder Take 17 g by mouth once daily. Disp: 510 g Rfl: 1 cephALEXin (KEFLEX) 500 mg capsule Take 1 capsule by mouth twice daily for 5 days. Disp: 10 capsule Rfl: 0 hydrocortisone (HEMORRHOIDAL HC) 25 mg suppository 1 Suppository by RECTAL route twice daily. Disp: 10 Suppository Rfl: 0 Levonorgestrel-Ethinyl Estrad 0.1mg - 20mcg per tablet Take 1 tablet by mouth once daily. Disp: 1 Package Rfl: 11 Allergies: ALLERGIES No Known Allergies DOS EXAM: Adequate NPO status: Yes Anesthetic risks, benefits, alternatives, personnel and consent discussed: Yes Patient agrees to proceed: Yes Previous Anesthesia: No history of adverse event. Airway Assessment: MP 1; Neck ROM: Full ROM without neurologic symptoms; Airway Evaluation: No significant abnormalities Symptoms of Sleep Apnea: None Dentition: Teeth intact Additional Physical Exam: Lungs: Patient health status unchanged since recent history and physical. See history and physical for exam findings. Cardiac: Patient health status unchanged since recent history and physical. See history and physical for exam findings. Blood Products: Not anticipated for this procedure. Anesthetic Plan: MAC with Sedation and Standard ASA Monitors Pain Management Plan: Parenteral or Oral ASA Class: 1E Other Medical Problems: None Chronic Beta Femi medication administered within 24 hours: N/A I have interviewed and examined the patient. I have reviewed the medical record and/or the pre-anesthesia evaluation, pertinent labs, and test results. Significant changes in the patient's condition since the History and Physical, not otherwise documented in primary service progress notes: No This contains updated information obtained within 48 hours of Surgery/Procedure. SIGNATURE: Steve Kay MD PATIENT NAME: Saranya Malave DATE: July 16, 2017 TIME: 4:19 PM CSN: [id number] PROGRESS Observed: 07/16/2017 Status: COMPLETED Source: [place] 3:23 PM [facility] [place] REPOSITORY O ID: [id number] Author: Nerissa Abrams Service: (none) Author Type: Nurse Practitioner Type: Progress Notes Filed: 07/16/2017 5:23 PM Note Text: ESTABLISHED PATIENT Saranya Malave is a 27 year old female presenting for Follow Up. HISTORY OF PRESENT ILLNESS Patient seen yesterday for anal pain and discharge, she has been taking antibiotic and taking warm baths and now her pain has worsened 10/10. She is crying, unable to sit. On exam she is tender to touch, no obvious abscess, anus draining thick yellow pus. Dr. Lay in to examine and he feels pt needs rectal exam under anesthesia. He spoke with surgeon senior environmental engineer - Dr. Samson. Scheduled for later today. Advised patient nothing by mouth. Her last intake was a milkshake at noon. 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 HYDROcodone-acetaminophen (NORCO) 5-325 mg per tablet Take 1 tablet by mouth every 6 hours as needed for Pain for up to 5 days. polyethylene glycol 3350 (MIRALAX) 17 gram/dose powder Take 17 g by mouth once daily. cephALEXin (KEFLEX) 500 mg capsule Take 1 capsule by mouth twice daily for 5 days. hydrocortisone (HEMORRHOIDAL HC) 25 mg suppository 1 Suppository by RECTAL route twice daily. Levonorgestrel-Ethinyl Estrad 0.1mg - 20mcg per tablet Take 1 tablet by mouth once daily. 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 Skin: Skin color, texture, turgor normal, no suspicious rashes or lesions. Neck: Supple, no adenopathy; thyroid symmetric, normal size, no bruits. Back:good flexion and extension, good range of motion, no muscle tenderness, reflexes are 2+ and symmetric, motor and sensory appear to be normal Lungs: Lungs clear to auscultation. No wheezing, rhonchi, rales. Heart: RRR without murmur, gallop, or rubs. No ectopy. Abdomen: Normal abdominal exam, Abdomen soft, non-tender. Bowel sounds normal. No masses, organomegaly. Extremities: No deformities, edema, skin discoloration, clubbing or cyanosis. Good capillary refill. . Musculoskeletal: No joint swelling, deformity, or tenderness. Rectal: Positive findings: See HPI. Assessment IMPRESSION/PLAN Deep perirectal abscess, to OR today for ONOFRE MORFIN Observed: 07/16/2017 Status: COMPLETED Source: [place] 1:00 PM [facility] REPOSITORY Office Visit (MARIA GUADALUPE) SARANYA MALAVE ([id number]) 1990 F Date Time Provider Department 07/16/17 1:00 PM NERISSA ABRAMS (UNIQUE) MARIA GUADALUPE During your visit today, we recorded the following information about you: Nerissa Abrams APRN.UNIQUE 07/16/2017 5:23 PM Signed ESTABLISHED PATIENT Saranya Malave is a 27 year old female presenting for Follow Up. HISTORY OF PRESENT ILLNESS Patient seen yesterday for anal pain and discharge, she has been taking antibiotic and taking warm baths and now her pain has worsened 10/10. She is crying, unable to sit. On exam she is tender to touch, no obvious abscess, anus draining thick yellow pus. Dr. Lay in to examine and he feels pt needs rectal exam under anesthesia. He spoke with surgeon senior environmental engineer - Dr. Samson. Scheduled for later today. Advised patient nothing by mouth. Her last intake was a milkshake at noon. 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 HYDROcodone-acetaminophen (NORCO) 5-325 mg per tablet Take 1 tablet by mouth every 6 hours as needed for Pain for up to 5 days. polyethylene glycol 3350 (MIRALAX) 17 gram/dose powder Take 17 g by mouth once daily. cephALEXin (KEFLEX) 500 mg capsule Take 1 capsule by mouth twice daily for 5 days. hydrocortisone (HEMORRHOIDAL HC) 25 mg suppository 1 Suppository by RECTAL route twice daily. Levonorgestrel-Ethinyl Estrad 0.1mg - 20mcg per tablet Take 1 tablet by mouth once daily. 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 Skin: Skin color, texture, turgor normal, no suspicious rashes or lesions. Neck: Supple, no adenopathy; thyroid symmetric, normal size, no bruits. Back:good flexion and extension, good range of motion, no muscle tenderness, reflexes are 2+ and symmetric, motor and sensory appear to be normal Lungs: Lungs clear to auscultation. No wheezing, rhonchi, rales. Heart: RRR without murmur, gallop, or rubs. No ectopy. Abdomen: Normal abdominal exam, Abdomen soft, non-tender. Bowel sounds normal. No masses, organomegaly. Extremities: No deformities, edema, skin discoloration, clubbing or cyanosis. Good capillary refill. . Musculoskeletal: No joint swelling, deformity, or tenderness. Rectal: Positive findings: See HPI. Assessment IMPRESSION/PLAN Deep perirectal abscess, to OR today for REUA Referring Provider: NERISSA ABRAMS ([facility]) [[id number]] Allergies As of Date: 07/16/2017 (No Known Allergies) Date Reviewed: 07/16/2017 Reviewed by: Latosha CeballosRn) ROMAN Broussard - Fully Assessed Reason for Visit: Follow Up [171] Primary Visit Diagnosis:Perirectal abscess [K61.1] Prescriptions as of 07/16/2017 Sig: CETIRIZINE 10 MG TABLET Take 10 mg by mouth. HYDROCODONE 5 MG-ACETAMINOPHE* Take 1 tablet by mouth every * POLYETHYLENE GLYCOL 3350 17 G* Take 17 g by mouth once daily. CEPHALEXIN 500 MG CAPSULE Take 1 capsule by mouth twice* HYDROCORTISONE ACETATE 25 MG * 1 Suppository by RECTAL route* LEVONORGESTREL-ETHINYL ESTRAD* Take 1 tablet by mouth once d* Problem List As Of Date 07/16/2017 Noted Resolved Oral contraception initial prescription [Z30.01*INVALID FOR* Screening for malignant neoplasm of the cervix *INVALID FOR* Displacement of lumbar intervertebral disc with*INVALID FOR* Perirectal abscess [K61.1] INVALID FOR* Encounter Status:Closed by NERISSA ABRAMS on 07/16/17 HOSP Observed: 07/16/2017 Status: COMPLETED Source: [place] 12:00 AM CLINIC OTHER CAMPUS REPOSITORY Patient:Saranya Malave MRN: <[id number]> Height:5' 4(1.626 m) Weight:161 lb 13.1 oz (73.4 kg) Outpatient Medications as of 07/16/17: cetirizine (ZYRTEC) 10 mg tablet HYDROcodone-acetaminophen (NORCO) 5-325 mg per tablet polyethylene glycol 3350 (MIRALAX) 17 gram/dose powder cephALEXin (KEFLEX) 500 mg capsule hydrocortisone (HEMORRHOIDAL HC) 25 mg suppository Levonorgestrel-Ethinyl Estrad 0.1mg - 20mcg per tablet Admission/Clinic Administered Medications as of 07/16/17: 0.9% NaCl 3-5 mL lactated ringers infusion morphine 1-2 mg injection ondansetron orally disintegrating 4 mg tab(s) (ZOFRAN ODT) ondansetron (PF) 4 mg injection (ZOFRAN) cefTRIAXone 1 g in D5W 100 mL MB+ (ROCEPHIN) metroNIDAZOLE 500 mg PREMIX piggyback (FLAGYL) Problem List: Oral contraception initial prescription [Z30.011] Screening for malignant neoplasm of the cervix [Z12.4] Displacement of lumbar intervertebral disc without myelopathy [M51.26] Perirectal abscess [K61.1] Allergies: No Known Allergies Date Verified:07/16/17 Lab Values Lab Value Units Date High Low POTA* 3.9 mmol/L 07/13/2017 5.1 3.7 ALVIN* 40.8 % 07/13/2017 46.0 36.0 Progress Notes ([facility]): Nerissa Abrams, MILLIE.CLINICAL RESEARCH MANAGEMENT ASSOCIATE 07/16/2017 5:23 PM Signed ESTABLISHED PATIENT Saranya Malave is a 27 year old female presenting for Follow Up. HISTORY OF PRESENT ILLNESS Patient seen yesterday for anal pain and discharge, she has been taking antibiotic and taking warm baths and now her pain has worsened 10/10. She is crying, unable to sit. On exam she is tender to touch, no obvious abscess, anus draining thick yellow pus. Dr. Lay in to examine and he feels pt needs rectal exam under anesthesia. He spoke with surgeon senior environmental engineer - Dr. Samson. Scheduled for later today. Advised patient nothing by mouth. Her last intake was a milkshake at noon. 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 HYDROcodone-acetaminophen (NORCO) 5-325 mg per tablet Take 1 tablet by mouth every 6 hours as needed for Pain for up to 5 days. polyethylene glycol 3350 (MIRALAX) 17 gram/dose powder Take 17 g by mouth once daily. cephALEXin (KEFLEX) 500 mg capsule Take 1 capsule by mouth twice daily for 5 days. hydrocortisone (HEMORRHOIDAL HC) 25 mg suppository 1 Suppository by RECTAL route twice daily. Levonorgestrel-Ethinyl Estrad 0.1mg - 20mcg per tablet Take 1 tablet by mouth once daily. 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 Skin: Skin color, texture, turgor normal, no suspicious rashes or lesions. Neck: Supple, no adenopathy; thyroid symmetric, normal size, no bruits. Back:good flexion and extension, good range of motion, no muscle tenderness, reflexes are 2+ and symmetric, motor and sensory appear to be normal Lungs: Lungs clear to auscultation. No wheezing, rhonchi, rales. Heart: RRR without murmur, gallop, or rubs. No ectopy. Abdomen: Normal abdominal exam, Abdomen soft, non-tender. Bowel sounds normal. No masses, organomegaly. Extremities: No deformities, edema, skin discoloration, clubbing or cyanosis. Good capillary refill. . Musculoskeletal: No joint swelling, deformity, or tenderness. Rectal: Positive findings: See HPI. Assessment IMPRESSION/PLAN Deep perirectal abscess, to OR today for REUA Progress Notes ([facility]): Joanie Carter Psr 07/16/2017 9:28 AM Signed Patient calling to speak with you. She says you told her to call today. She is asking that you call her back DAVE but at your convenience. Thanks Nerissa Abrams APRN.CLINICAL RESEARCH MANAGEMENT ASSOCIATE 07/16/2017 4:41 PM Signed Spoke with patient who is having pain, will see her at 1 o'clock today OPERATIVE NO Observed: 07/16/2017 Status: COMPLETED Source: [place] 12:00 AM CLINIC OTHER CAMPUS REPOSITORY HNO ID: [id number] Author: Earline Samson Service: General Surgery Author Type: Physician Type: Operative Report Filed: 07/20/2017 8:38 AM Note Text: [facility]- Operative Report SARANYA MALAVE : 1990 AGE: 27 SEX: F ACCTNUM: [id number] [facility]: [facility] LOCATION: [facility] ATTENDING PHYSICIAN: Earline Samson M.D. DATE OF PROCEDURE: 07/16/2017 SURGEON: Earline Samson M.D. COMMUNITY RELATIONS LIAISON: NONE ANESTHESIA: Monitored anesthesia. PREOPERATIVE DIAGNOSIS(ES): Perirectal abscess. POSTOPERATIVE DIAGNOSIS(ES): Perirectal abscess. NAME OF OPERATION: Incision and drainage of perirectal abscess. INDICATIONS: The patient is a 27-year-old female who presents with a persistent draining perirectal abscess. She now presents for incision and drainage. Risks including bleeding and infection were explained and she would like to proceed. ESTIMATED BLOOD LOSS: Minimal blood loss. PROCEDURE START TIME: 8:12 p.m. PROCEDURE END TIME: 8:25 p.m. PROCEDURE: The patient was identified and brought to the operating room, placed in supine position. After monitored anesthesia was obtained, she was placed into the high lithotomy position. A pudendal block was then performed with Exparel. 5 cc were placed bilaterally. The Exparel was diluted in 20 mL of Exparel with 10 mL of saline. The Exparel was then used to anesthetize around the anterior anal canal. She had purulence coming from the anterior aspect of her anal canal. A culture was sent. The opening was widened with a hemostat. The wound was then probed. There was a moderate-sized cavity that remained in the midline and slightly up to the left. No other palpable internal opening was identified. She did have some induration along her left perineum. This was aspirated with an 18- gauge needle. However, no other pockets of purulent fluid were identified. The wound was then copiously irrigated with saline. I did not place packing as this would be in a difficult place to remove the packing. I feel that the wound is adequately drained and no further packing is necessary. All counts were correct at the end of the case and the patient tolerated the procedure well. She was taken to recovery room in good condition. Earline Samson M.D. General Surgery FAREED:[id number] /[id number] CNOV Observed: 07/15/2017 Status: COMPLETED Source: [place] 2:00 PM [facility] REPOSITORY Office Visit ([facility]) SARANYA MALAVE ([id number]) 1990 F Date Time Provider Department 07/15/17 2:00 PM NERISSA ABRAMS (CLINICAL RESEARCH MANAGEMENT ASSOCIATE) MARIA GUADALUPE During your visit today, we recorded the following information about you: Pulse Blood pressure Weight Height 111/minute 138/57 73 kg 1.626 m Nerissa Abrams APRN.CNP 07/15/2017 2:32 PM Signed NEW PATIENT HISTORY AND PHYSICAL EXAM Saranya Malave is a 27 year old female presenting for rectal pain and bleeding. HISTORY OF PRESENT ILLNESS Saranya Malave is a 27 year old female who presents with rectal pain and bleeding. She first noted pain on 07/10/17, it became unbearable on Friday07/12/17 and presented to the ER, she was having red drainage. She describes the pain as burning and constant And rates it an 7 /10. She has never had this pain before. also reports a yellow drainage. She is on an antibiotic and was given hydrocortisone suppositories by her PCP with little relief. Priti was offered pain medication in the ER and felt it was not needed but now she asks for something - [place] and Miralax given. On exam there is no obvious abscess however with any pressure to anal area a thick yellow pus drains. No obvious anal fissure, no abscess felt with digital exam. She is very tender with exam. Advised drainage was the objective, continue the antibiotic, warm baths 4 x daily. Follow up dave if symptoms worsen or in one week. 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 cephALEXin (KEFLEX) 500 mg capsule Take 1 capsule by mouth twice daily for 5 days. hydrocortisone (HEMORRHOIDAL HC) 25 mg suppository 1 Suppository by RECTAL route twice daily. Levonorgestrel-Ethinyl Estrad 0.1mg - 20mcg per tablet Take 1 tablet by mouth once daily. REVIEW OF SYSTEMS General: No weight loss or fevers Lungs: Denies SOB or dyspnea Heart: Deneis chest pains, swelling GI: no diarrhea or constipation, See HPI : nothing significant PHYSICAL EXAM LMP 07/07/2017 General Appearance: Well appearing, alert, in no acute distress, well-hydrated, well nourished.. Lungs: Lungs clear to auscultation. No wheezing, rhonchi, rales. Heart: RRR without murmur, gallop, or rubs. No ectopy. Abdomen: Normal abdominal exam, Abdomen soft, non-tender. Bowel sounds normal. No masses, organomegaly. Rectal: Positive findings: tenderness and drainage. ASSESSMENT/PLAN: 1. Perirectal abscess - ICD9: 566, ICD10: K61.1 Spontaneously draining, continue antibiotics, 4x daily warm baths, follow up in one week or sooner if needed. Nerissa Abrams, CAUSTIC PREPARER.CLINICAL RESEARCH MANAGEMENT ASSOCIATE Referring Provider: BIRDIE ORDONEZ [[id number]] Allergies As of Date: 07/15/2017 (No Known Allergies) Date Reviewed: 07/15/2017 Reviewed by: Sandra Ma LPN - Fully Assessed Reason for Visit: Consult [173] Cmt: Rectal Abscess Primary Visit Diagnosis:Perirectal abscess [K61.1] Order(s):HYDROcodone-acetaminophen (NORCO) 5-325 mg per tabletTake 1 tablet by mouth every 6 hours as needed for Pain for up to 5 days.Disp: 12 tabletRfl: 0 polyethylene glycol 3350 (MIRALAX) 17 gram/dose powderTake 17 g by mouth once daily.Disp: 510 gRfl: 1 Prescriptions as of 07/15/2017 Sig: CETIRIZINE 10 MG TABLET Take 10 mg by mouth. HYDROCODONE 5 MG-ACETAMINOPHE* Take 1 tablet by mouth every * POLYETHYLENE GLYCOL 3350 17 G* Take 17 g by mouth once daily. CEPHALEXIN 500 MG CAPSULE Take 1 capsule by mouth twice* HYDROCORTISONE ACETATE 25 MG * 1 Suppository by RECTAL route* LEVONORGESTREL-ETHINYL ESTRAD* Take 1 tablet by mouth once d* Problem List As Of Date 07/15/2017 Noted Resolved Oral contraception initial prescription [Z30.01*INVALID FOR* Screening for malignant neoplasm of the cervix *INVALID FOR* Displacement of lumbar intervertebral disc with*INVALID FOR* Prescriptions ordered this encounter Disp Refills Start End HYDROCODONE 5 MG-ACETAMINOPHEN 325 M* 12 t* 0 07/15/2017 07/20/2017 Class: Print RX Route: ORAL Sig: Take 1 tablet by mouth every 6 hours as needed for Pain for up to 5 days. POLYETHYLENE GLYCOL 3350 17 GRAM/DOS* 510 g 1 07/15/2017 08/14/2017 Class: Print RX Route: ORAL Sig: Take 17 g by mouth once daily. Encounter Status:Closed by NERISSA ABRAMS on 07/15/17 PROGRESS Observed: 07/15/2017 Status: COMPLETED Source: [place] 1:47 PM [facility] [place] REPOSITORY HNO ID: [id number] Author: Nerissa Montoya) Jose Alberto Service: (none) Author Type: Nurse Practitioner Type: Progress Notes Filed: 07/15/2017 2:32 PM Note Text: NEW PATIENT HISTORY AND PHYSICAL EXAM Saranya Malave is a 27 year old female presenting for rectal pain and bleeding. HISTORY OF PRESENT ILLNESS Saranya Malave is a 27 year old female who presents with rectal pain and bleeding. She first noted pain on 07/10/17, it became unbearable on Friday07/12/17 and presented to the ER, she was having red drainage. She describes the pain as burning and constant And rates it an 7 /10. She has never had this pain before. Se also reports a yellow drainage. She is on an antibiotic and was given hydrocortisone suppositories by her PCP with little relief. Priti was offered pain medication in the ER and felt it was not needed but now she asks for something - [place] and Miralax given. On exam there is no obvious abscess however with any pressure to anal area a thick yellow pus drains. No obvious anal fissure, no abscess felt with digital exam. She is very tender with exam. Advised drainage was the objective, continue the antibiotic, warm baths 4 x daily. Follow up dave if symptoms worsen or in one week. 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 cephALEXin (KEFLEX) 500 mg capsule Take 1 capsule by mouth twice daily for 5 days. hydrocortisone (HEMORRHOIDAL HC) 25 mg suppository 1 Suppository by RECTAL route twice daily. Levonorgestrel-Ethinyl Estrad 0.1mg - 20mcg per tablet Take 1 tablet by mouth once daily. REVIEW OF SYSTEMS General: No weight loss or fevers Lungs: Denies SOB or dyspnea Heart: Deneis chest pains, swelling GI: no diarrhea or constipation, See HPI : nothing significant PHYSICAL EXAM LMP 07/07/2017 General Appearance: Well appearing, alert, in no acute distress, well-hydrated, well nourished.. Lungs: Lungs clear to auscultation. No wheezing, rhonchi, rales. Heart: RRR without murmur, gallop, or rubs. No ectopy. Abdomen: Normal abdominal exam, Abdomen soft, non-tender. Bowel sounds normal. No masses, organomegaly. Rectal: Positive findings: tenderness and drainage. ASSESSMENT/PLAN: 1. Perirectal abscess - ICD9: 566, ICD10: K61.1 Spontaneously draining, continue antibiotics, 4x daily warm baths, follow up in one week or sooner if needed. Nerissa Abrams APRN.[facility] ED NOTE Observed: 07/13/2017 Status: COMPLETED Source: [place] 8:46 PM CLINIC OTHER CAMPUS REPOSITORY O ID: [id number] Author: Tasneem (Rn) ROMAN Gastelum Service: (none) Author Type: Registered Nurse Type: ED Notes Filed: 07/16/2017 10:30 AM Note Text: Emergency Services: ED Call Back Questionnaire SERVICE DATE: 07/13/2017 Are you feeling better? No, Comments: states she had appt yesterday with specialist and is trying to be seen again today Any questions about discharge instructions and follow-up care? No Were you able to make a follow up appointment? Yes Do you have any further questions? No Is there anything that we could have done differently to improve your ED visit? No SIGNATURE: Tasneem Gastelum RN PATIENT NAME: Saranya Malave DATE: July 16, 2017 TIME: 10:29 AM ED PROV NOTE Observed: 07/13/2017 Status: COMPLETED Source: [place] 8:42 PM CLINIC OTHER CAMPUS REPOSITORY HNO ID: [id number] Author: Kane Moreira MD Service: Emergency Medicine Author Type: Physician Type: ED Provider Notes Filed: 07/13/2017 10:24 PM Note Text: ED Provider Note Patient Name: Saranya Malave SERVICE DATE: 07/13/17 History Patient presents with: Pelvic Pain: pt presents from [facility] and states she thought pulled a muscle in her pelvis on . Since pt states she has had skin chunks and blood coming out of her rectum pt states she also had abd cramping. pt denies vaginal bleeding or discharge at this time. Saranya Malave is a 27-year-old female presenting for evaluation of pelvic pain. She states that his been going on for the last few days, and was associated with chunks of blood from her rectum. She denies vaginal discharge. She recently completed her period. She denies pain with urination or change in urinary frequency. No pain in her flanks. The pain in her perineal region is 8 out of 10, achy, radiating into her back and lower legs. Denies drug use, fevers, chills, nausea, vomiting. Has been able to ambulate without difficulty. Sexually active with one partner, intermittently uses condoms. Not on control. negative test. No change in sexual activity, no high-risk sexual activity. no changes in activity. No changes in sensation. Denies syncope, dizziness, lightheadedness. 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 - Sprain, sacroiliac BWC PAST SURGICAL HISTORY Procedure Laterality Date - CRYOSURGERY FAMILY HISTORY Problem Relation Age of Onset - Diabetes Maternal Grandmother - Diabetes Maternal Grandfather - Hypertension Maternal Grandfather - Hyperlipidemia Maternal Grandfather - Stroke Maternal Grandfather - Cancer Maternal Grandfather SKIN - Cancer Paternal Grandfather LUNG - Cancer Paternal Grandmother LUNG Social History Social History Main Topics - Smoking status: Current Every Day Smoker - Smokeless tobacco: Never Used - Alcohol use Yes Comment: occ - Drug use: No - Sexual activity: Not on file ALLERGIES No Known Allergies Review of Systems Constitutional: Negative for chills and fever. HENT: Negative for ear discharge and ear pain. Eyes: Negative for pain and discharge. Respiratory: Negative for cough and shortness of breath. Cardiovascular: Negative for chest pain and palpitations. Gastrointestinal: Negative for abdominal pain, constipation, diarrhea, nausea and vomiting. Genitourinary: Negative for dysuria and frequency. Musculoskeletal: Negative for back pain and neck pain. Perineal pain Skin: Negative for rash and wound. Neurological: Negative for syncope, weakness and numbness. Psychiatric/Behavioral: Negative for self-injury and suicidal ideas. Physical Exam BP 129/71 Pulse 103 Temp (Src) 98.1 (Oral) Resp 16 Ht 5' 4 (1.63m) Wt 160 lb (72.6kg) SpO2 94% LMP 07/07/2017 BMI 27.45 kg/(m2). Physical Exam Constitutional: She is oriented to person, place, and time. She appears well-developed and well-nourished. No distress. HENT: Head: Normocephalic and atraumatic. Right Ear: External ear normal. Left Ear: External ear normal. Eyes: Pupils are equal, round, and reactive to light. No scleral icterus. Neck: Normal range of motion. Neck supple. Cardiovascular: Normal rate, regular rhythm, normal heart sounds and intact distal pulses. Exam reveals no gallop and no friction rub. No murmur heard. Pulmonary/Chest: Effort normal and breath sounds normal. No stridor. No respiratory distress. She has no wheezes. She has no rales. She exhibits no tenderness. Abdominal: Soft. There is no tenderness. There is no guarding. Genitourinary: Vagina normal. Genitourinary Comments: pain on palpation to the 5o'clock position of the labia minora, without swelling or induration, small amount of dark blood in vaginal vault from os. Musculoskeletal: Normal range of motion. She exhibits no edema, tenderness or deformity. Neurological: She is alert and oriented to person, place, and time. No cranial nerve deficit. Skin: Skin is warm and dry. No rash noted. She is not diaphoretic. Psychiatric: She has a normal mood and affect. Nursing note and vitals reviewed. Diagnostic Testing Results for orders placed or performed during the hospital encounter of 07/13/17 RAPID BACT VAGINOSIS (AK) Result Value Ref Range Rapid Bact.Vaginosis see below OCCULT BLOOD EXAM-SCREEN (AK,AV,EU,FV,HL,DIDIER,SP) Result Value Ref Range FECAL OCCULT BLOOD POSITIVE (A) NEGATIVE TRICHOMONAS PREP (AK,AV,EU,FV,HL,DIDIER,MM,SP) Result Value Ref Range Rapid Trichomonas Ag see below Procedures Medical Decision Making MDM patient presents for evaluation of bright red blood per rectum, and pelvic pain. On physical exam noted to have old appearing blood in the vaginal vault, coming from the cervical os. Rectal exam showed a very small nonthrombosed hemorrhoid. No internal hemorrhoids on exam. There is palpation over the bartholin gland gland area, without signs of induration or inflammation. No other signs of infection on vaginal exam. STD swabs were obtained and were negative. Low suspicion for STD, and not covered with prophylactic antibiotics. Pelvic ultrasound ordered to further evaluate the bartholin gland area, patient refuses evaluation. As she guarding had a CT scan the abdomen that was negative for acute findings, repeat imaging was not obtained. Negative urinary had been obtained earlier in the day and it was not repeated. Patient stable for discharge home and follow up with GI for further evaluation of bleeding. fecal occult was positive, however this may be secondary to repeat rectal exam, blood in her vagina, or hemorrhoid, and she had no active hemorrhage. The patient was seen by myself and the attending physician. Diagnostic testing was reviewed and is documented above. Reasons to return to the ER were discussed as well as the need to follow up with primary care. The patient endorsed understanding of these instructions and was discharged in stable condition. ED Course / Clinical Impression Clinical Impressions as of Jul 13 2041 Anal or rectal pain Plan The patient was DISCHARGED: Counseled patient regarding lab results AND radiology results AND need for follow-up. Discharged home with verbal and written instructions. They were instructed to return as needed for persistent or worsening symptoms or any new concerns. Condition at time of disposition: stable SIGNATURE: MD Da Marks (Res) MD Joselin Resident 07/13/17 7907 Attending Note I evaluated the patient and personally participated in the dorsey components. I agree with the resident's findings and plan as documented and have discussed the case and management of the patient's care with the resident. Pt presenting for anal/perineal pain w/ report of rectal bleeding. Pt went to [place] with negative CT A/P. No signs of vaginal infection on exam. Offered pelvic U/S for symptoms though low suspicion for pathology identified on such and pt does not desire at this time. Pt w/ hx of hemorrhoids and explained could be internal hemorrhoid. Pt w/o significant drop in H/H and abd benign on exam. Pt well-appearing and stable for d/c. Given script for treatment for internal hemorrhoid. Pt stable for d/c. Well-appearing Heart RRR w/o murmurs Lungs CTAB Distal pulses intact Abd soft, NT, ND Signature: Kane Moreira MD Date: 07/13/2017 Time: 10:22 PM Kane Moreira MD 07/13/172223 ED NOTE Observed: 07/13/2017 Status: COMPLETED Source: [place] 8:17 PM [facility] OTHER [place] REPOSITORY HNO ID: [id number] Author: Daniela Quijano (Rn), RN Service: Emergency Medicine Author Type: Registered Nurse Type: ED Notes Filed: 07/13/2017 8:18 PM Note Text: US contacted to see if pt needs monet for test. Tech stated she does not. US notified that pt is ready. ED NOTE Observed: 07/13/2017 Status: COMPLETED Source: [place] 7:52 PM [facility] OTHER CAMPUS REPOSITORY HNO ID: [id number] Author: Daniela QuijanoRn), RN Service: Emergency Medicine Author Type: Registered Nurse Type: ED Notes Filed: 07/13/2017 7:52 PM Note Text: Pelvic exam completed and specimens obtained by Dr. Olivera. FECAL OCCULT BLOOD Collected: 07/13/2017 Status: F Source: [facility] 7:52 PM HEALTH SYSTEM REPOSITORY TYPE CODE TESTS RESULT OUT OF RANGE REFERENCE UNITS LAB OCCU2(LOIN NEGATIVE C) Abnormal Fecal POSITIVE Occult Blood Performed By: #### OCCU2 #### [address] [address] RAPID BACT.VAGINOSIS Collected: 07/13/2017 Status: F Source: [facility] 7:52 PM HEALTH SYSTEM REPOSITORY TYPE CODE TESTS RESULT OUT OF RANGE REFERENCE UNITS LAB RAPBV(LOINC ) Rapid see below Bact.Vaginos is Result Comment: Negative for the presence of bacterial vaginosis. Performed By: #### RAPBV #### [place] [address] RAPID TRICHOMONAS AG Collected: 07/13/2017 Status: F Source: [facility] 7:52 PM HEALTH SYSTEM REPOSITORY TYPE CODE TESTS RESULT OUT OF REFERENCE UNITS RANGE LAB RAPTR(LOIN C) Rapid Trichomonas Ag see below Result Comment: No Trichomonas antigen present or the antigen level is below detection limit of the assay (2500 organisms/mL). Performed By: #### RAPTR #### [place] [address] Observed: 07/13/2017 Status: F Source: [facility] CHLAM/GC-DNA AMPLIFIED 7:30 PM HEALTH SYSTEM REPOSITORY Test performed at [facility] Chlamydia trachomatis DNA NOT DETECTED Neisseria gonorrhoeae DNA NOT DETECTED Reference range NOT DETECTED Method: Strand Displacement Amplification-BD ProbeTec Assay Comment: A negative result does not preclude C.trachomatis or N. gonorrhoeae infection because results are dependent on adequate specimen collection, absence of inhibitors, and sufficient DNA to be detected. Performed By: #### CTGCA #### [place] [address] ED NOTE Observed: 07/13/2017 Status: COMPLETED Source: [place] 7:25 PM [facility] REPOSITORY HNO ID: [id number] Author: Daniela Quijano (Rn), RN Service: Emergency Medicine Author Type: Registered Nurse Type: ED Notes Filed: 07/13/2017 7:26 PM Note Text: Pt complaining of perineal pain with frequent urination. Denies other urinary issues. Pt states she notices pink on the tissue after wiping rectum. ED TRIAGE NOTE Observed: 07/13/2017 Status: COMPLETED Source: [place] 6:52 PM [facility] OTHER [place] REPOSITORY HNO ID: [id number] Author: Tanvir Daley (Pa) Service: Emergency Medicine Author Type: Physician Box Lining Machine Feeder Type: ED Triage Notes Filed: 07/13/2017 6:54 PM Note Text: ED INTAKE NOTE Patient Name: Saranya Malave Service Date: 07/13/17 BRIEF HPI: 27-year-old female who presents the ED for evaluation of perineal pain. Patient states that the pain has been going on since . She states that she originally thought she pulled a muscle in her groin. Patient states that today she noticed skin chunks and blood coming out of her rectum. She states that this happened when she was urinating. She denies any vaginal bleeding or discharge. She denies any bright red blood or dark stool. Denies any fevers, chills, abdominal pain, nausea, vomiting. She was seen at [facility] where she had blood work and CT of her abdomen which was negative. States that they told her it was a UTI and give her antibiotics. BRIEF EXAM: Awake and Alert RRR CTAB Abd soft/NT/ND; no rebound/guarding INTAKE WORKUP: deferred SIGNATURE: DEMARCUS Casas ED PROV NOTE Observed: 07/13/2017 Status: COMPLETED Source: [place] 4:55 PM CLINIC OTHER CAMPUS REPOSITORY HNO ID: [id number] Author: Radha Holt (Steven) Service: (none) Author Type: Physician Box Lining Machine Feeder Type: ED Provider Notes Filed: 07/13/2017 7:06 PM Note Text: ED Provider Note Patient Name: Saranya Malave SERVICE DATE: 07/13/17 History Patient presents with: Pelvic Pain Rectal Bleeding This is a 27 y/o female PMHx of chronic low back pain here with pain in between her rectum and vagina that started 4 days. States that she was at the gym when onset of pain started and she initially though she may have pulled a muscle due to pain feeling like dull ache. Yesterday evening she experience BM in which stool appeared flaky and orange/pinkish discoloration and with the persistent pain in perineal region she wanted to come to ED to be evaluated. Denies fevers, chills, dizziness, chest pain,dyspnea, n/v, acute back pain, hematuria, dysuria, vaginal bleeding or discharge, constipation, diarrhea, melanotic stools, weakness or lethargy. No current anticoagulation therapy. She has had increased urinary frequency. Allegedly sexually active with one male partner. No previous abdominal surgeries reported. 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 - Sprain, sacroiliac BWC PAST SURGICAL HISTORY Procedure Laterality Date - CRYOSURGERY FAMILY HISTORY Problem Relation Age of Onset - Diabetes Maternal Grandmother - Diabetes Maternal Grandfather - Hypertension Maternal Grandfather - Hyperlipidemia Maternal Grandfather - Stroke Maternal Grandfather - Cancer Maternal Grandfather SKIN - Cancer Paternal Grandfather LUNG - Cancer Paternal Grandmother LUNG Social History Social History Main Topics - Smoking status: Current Every Day Smoker - Smokeless tobacco: Never Used - Alcohol use Yes Comment: occ - Drug use: No - Sexual activity: Not on file ALLERGIES No Known Allergies Review of Systems Constitutional: Negative for chills and fever. Respiratory: Negative for shortness of breath. Cardiovascular: Negative for chest pain. Gastrointestinal: Positive for blood in stool (pinkish/orange). Negative for abdominal pain, anal bleeding, constipation, diarrhea, nausea and vomiting. Genitourinary: Positive for frequency. Negative for difficulty urinating, dysuria, flank pain, hematuria, urgency, vaginal bleeding and vaginal discharge. Musculoskeletal: Positive for back pain (chronic ). Skin: Negative for rash. Allergic/Immunologic: Negative for immunocompromised state. Neurological: Negative for dizziness, syncope, weakness, light-headedness and headaches. Hematological: Does not bruise/bleed easily. Physical Exam BP 122/66 Pulse 77 Temp (Src) 98.6 (Oral) Resp 18 SpO2 100% LMP 07/07/2017 Physical Exam Constitutional: She appears well-developed and well-nourished. No distress. HENT: Head: Normocephalic and atraumatic. Mouth/Throat: Oropharynx is clear and moist. Eyes: Conjunctivae are normal. Neck: Neck supple. Cardiovascular: Normal rate and regular rhythm. Pulmonary/Chest: Effort normal. No respiratory distress. She has no wheezes. She has no rales. Abdominal: Soft. Bowel sounds are normal. She exhibits no distension and no mass. There is no tenderness. There is no rebound and no guarding. Genitourinary: Rectal exam shows external hemorrhoid (small non-thrombosed external hemorrhoid noted. ). Rectal exam shows no fissure, no mass, no tenderness and guaiac negative stool (manager quality compliance verified. ). Musculoskeletal: FARMER x 4 Neurological: She is alert. Awake and alert. Normal speech. Steady gait. Skin: Skin is warm and dry. Psychiatric: She has a normal mood and affect. Her behavior is normal. Nursing note and vitals reviewed. Diagnostic Testing Results for orders placed or performed during the hospital encounter of 07/13/17 URINALYSIS Result Value Ref Range Color Straw (A) Yellow Appearance (U) Clear Clear Glucose, Urine Negative Negative mg/dL Bilirubin, Urine Negative Negative Ketones, Urine Negative Negative Specific [place], Ur <=1.005 1.001 - 1.029 Hemoglobin/Blood,Ur Small (A) Negative pH, Urine 7.0 5.0 - 8.0 Protein, Urine Negative Negative mg/dL Urobilinogen 0.2 0.2 - 1.0 Nitrites Negative Negative Leukest Negative Negative HCG QUAL UR Result Value Ref Range HCG Qualitative, Urine Negative Negative CBC + DIFF Result Value Ref Range WBC 12.21 (H) 3.70 - 11.00 k/uL RBC 4.42 3.90 - 5.20 m/uL Hemoglobin 13.7 11.5 - 15.5 g/dL Hematocrit 40.8 36.0 - 46.0 % MCV 92.3 80.0 - 100.0 fL MCH 31.0 26.0 - 34.0 pG MCHC 33.6 30.5 - 36.0 g/dL RDW-CV 13.9 11.5 - 15.0 % Platelet Count 296 150 - 400 k/uL MPV 9.6 9.0 - 12.7 fL Neut% 76.0 % Abs Neut (ANC) 9.27 (H) 1.45 - 7.50 k/uL Lymph% 14.7 % Abs Lymph 1.80 1.00 - 4.00 k/uL Nobles% 8.8 % Abs Nobles 1.07 (H) <0.87 k/uL Eosin% 0.2 % Abs Eosin 0.03 <0.46 k/uL Baso% 0.3 % Abs Baso 0.04 <0.11 k/uL COMP METABOLIC PANEL Result Value Ref Range Protein, Total 7.1 6.3 - 8.0 g/dL Albumin 4.4 3.9 - 4.9 g/dL Calcium 9.5 8.5 - 10.2 mg/dL Bilirubin, Total 0.2 0.2 - 1.3 mg/dL Alkaline Phosphatase 57 32 - 117 U/L AST 15 13 - 35 U/L Glucose 96 74 - 99 mg/dL BUN 9 7 - 21 mg/dL Creatinine 0.61 0.58 - 0.96 mg/dL Sodium 141 136 - 144 mmol/L Potassium 3.9 3.7 - 5.1 mmol/L Chloride 104 97 - 105 mmol/L CO2 25 22 - 30 mmol/L Anion Gap 12 9 - 18 mmol/L ALT 9 7 - 38 U/L eGFR- >60 eGFR-All Other Races >60 . LIPASE BLD Result Value Ref Range Lipase 19 16 - 61 U/L URINE MICROSCOPIC Result Value Ref Range WBC, Urine 0-5 0 - 5 /HPF RBC, Urine 0-3 0 - 3 /HPF Cast SEE COMMENT 0 /LPF Bacteria Occasional (A) 0 /HPF Epithelial Cells SEE COMMENT /HPF OCCULT BLD EXAM-DIAG Result Value Ref Range Occult Blood Source Stool Occult Blood Exam, Diagnostic Negative CT ABD/PEL W IVCON (Final result) Result time 07/13/17 15:37:26 Final result by Radiology, Oru In (07/13/17 15:37:26) Impression: IMPRESSION: 1. ? Mild diverticulosis no evidence of diverticulitis 2. ?Otherwise unremarkable Vegetable Trimmer: PSCB ? Transcribe Date/Time: Jul 13 2017 ?3:13P Dictated by : YOUSIF YO, DO This examination was interpreted and the report reviewed and electronically signed by: YOUSIF YO, DO on Jul 13 2017 ?3:35PM ?EST Procedures Medical Decision Making MDM This is a 27-year-old female who presents to the ED with pain in her perineum as well as a change in stool color caliber. Upon arrival to the ED the patient is hemodynamically stable. She is afebrile.No respiratory distress or hypoxia. Her abdomen is soft and nontender. There is no gross blood on exam. There are no clinical findings that would suggest a focal collection however given she reports pain in the perineum I did obtain a CT the pelvis and abdomen with IV contrast to further evaluate for a possible abscess/fistula which was unremarkable per the radiologist. Hemoccult negative. There was a mild leukocytosis. Her urinalysis did note some mild bacteruria. Due to the source of patient's pain being unclear as to what is causing the patient's pain I did suggest a pelvic exam to further evaluate however the patient declined. Given her reported increased urinary frequency and there is some bacteria in her urine analysis I did elect to start her on Keflex pending the urine culture. I discussed indications to return to the ED. I also write her with contact information to a local GI senior environmental engineer and advised that she scheduled appointment if her symptoms should persist. ED Course / Clinical Impression -Hydrated with IVF's. Clinical Impressions as of Jul 14 1855 Bacteriuria Perineal pain in female Plan The patient was DISCHARGED: Counseled patient regarding lab results AND radiology results AND suspected diagnosis AND need for follow- up. Discharged home with verbal and written instructions. They were instructed to return as needed for persistent or worsening symptoms or any new concerns. Given a prescription for the following medication(s): Keflex Condition at time of disposition: stable SIGNATURE: STEVEN French Pa-C 07/13/17 190 ED NOTE Observed: 07/13/2017 Status: COMPLETED Source: [place] 4:54 PM [facility] REPOSITORY HNO ID: [id number] Author: Martha Quiles (Rn), RN Service: (none) Author Type: Registered Nurse Type: ED Notes Filed: 07/13/2017 4:55 PM Note Text: Pt was ambulatory with her discharge Her boyfriend was bedside ED NOTE Observed: 07/13/2017 Status: COMPLETED Source: [place] 4:35 PM [facility] OTHER [place] REPOSITORY HNO ID: [id number] Author: Martha Quiles (Rn), RN Service: (none) Author Type: Registered Nurse Type: ED Notes Filed: 07/13/2017 4:36 PM Note Text: Radha TRACY Rounds on the pt and she is to be discharged home CT ABD/PEL W IVCON Observed: 07/13/2017 Status: F Source: [place] 3:09 PM [facility] OTHER [place] REPOSITORY * * *Final Report* * * DATE OF EXAM: Jul 13 2017 3:09PM [facility] 0530 - CT ABD/PEL W IVCON / PROCEDURE REASON: Perineal pain in female--Left lower quadrant pain * * * * Physician Interpretation * * * * EXAMINATION: CT ABDOMEN AND PELVIS WITH IV CONTRAST CLINICAL HISTORY: Perineal pain in female--Left lower quadrant pain RECTAL PAIN, LLQ ABD PAIN TECHNIQUE: CT of the abdomen and pelvis was performed using standard technique, scanning from presented for a stricture or leak is less echogenic liver likely relatedb liver is normal in(no just above the dome of the diaphragm to the symphysis pubis. MQ: CTAP_3 Contrast: IV: 100 ml of Omnipaque 300 : ml of CT Radiation dose: Integrated Dose-length product (DLP) for this visit = 417 mGy*cm. CT Dose Reduction Employed: mAs-kVp adjusted based on patient size-age COMPARISON: None. RESULT: RESULT: Liver: No mass. Homogeneous texture. Biliary: No ductal dilatation is seen. Gallbladder is unremarkable. Spleen: Spleen is unremarkable. Pancreas: No mass or duct dilation. Adrenals: Adrenal glands are unremarkable. Kidneys: No mass, calculus or hydronephrosis is seen. GI tract: No bowel dilatation is seen. No evidence of obstruction. Mild diverticulosis but no evidence of diverticulitis. The appendix is not visualized. No inflammatory changes are seen in the right lower quadrant. Lymph nodes: No evidence of adenopathy. Mesentery/Peritoneum: No ascites or mass. Vasculature: No evidence of dilatation of the abdominal aorta. Pelvis: No mass, ascites or fluid collections. Bones/Soft Tissues: No significant findings identified. Lower thorax: Minimal right basilar atelectasis IMPRESSION: 1. Mild diverticulosis no evidence of diverticulitis 2. Otherwise unremarkable Vegetable Trimmer: MICHELE Transcribe Date/Time: Jul 13 2017 3:13P Dictated by : YOUSIF YO DO This examination was interpreted and the report reviewed and electronically signed by: YOUSIF YO DO on Jul 13 2017 3:35PM EST [id number] ED NOTE Observed: 07/13/2017 Status: COMPLETED Source: [place] 2:32 PM [facility] OTHER [place] REPOSITORY HNO ID: [id number] Author: Martha Quiles (Rn), RN Service: (none) Author Type: Registered Nurse Type: ED Notes Filed: 07/13/2017 2:33 PM Note Text: Rectal exam per Radha TRACY Pt tolerated well Pt does appear to have pain with exam and when she was touched per the PA Pt was reeducated that she needs a ct scan to visualize the area better Pt stated an understanding of the such OCCULT BLOOD DIAG. Collected: 07/13/2017 Status: F Source: [place] 2:10 PM [facility] OTHER [place] REPOSITORY TYPE CODE TESTS RESULT OUT OF REFERENCE UNITS RANGE LAB OBSRCE Occult Stool Blood Source: LAB OBD Occult Negative Blood Diag. Performed By: #### OBDX #### [facility] [address] [place] [address] CBC AND DIFFERENTIAL Collected: 07/13/2017 Status: F Source: [place] 2:10 PM CLINIC OTHER CAMPUS REPOSITORY TYPE CODE TESTS RESULT OUT OF REFERENCE UNITS RANGE LAB WBC 3.70-11.00 k/uL WBC High 12.21 LAB RBC 3.90-5.20 m/uL RBC 4.42 LAB HGB 11.5-15.5 g/dL Hemoglobin 13.7 LAB HCT 36.0-46.0 % Hematocrit 40.8 LAB MCV 80.0-100.0 fL MCV 92.3 LAB MCH 26.0-34.0 pG MCH 31.0 LAB MCHC 30.5-36.0 g/dL MCHC 33.6 LAB RDWCV 11.5-15.0 % RDW-CV 13.9 LAB PLTCT 150-400 k/uL Platelet Count 296 LAB MPV 9.0-12.7 fL MPV 9.6 LAB ANEUT % Neut% 76.0 LAB AANEUT 1.45-7.50 k/uL Abs Neut High 9.27 LAB ALYMP % Lymph% 14.7 LAB AALYMP 1.00-4.00 k/uL Abs Lymph 1.80 LAB AMONO % Nobles% 8.8 LAB AAMONO <0.87 k/uL Abs Nobles High 1.07 LAB AEOS % Eosin% 0.2 LAB AAEOS <0.46 k/uL Abs Eosin 0.03 LAB ABASO % Baso% 0.3 LAB AABASO <0.11 k/uL Abs Baso 0.04 Performed By: #### CBCDIF, CMP, LIPA #### [facility] [address] [place] [address] COMP METABOLIC PANEL Collected: 07/13/2017 Status: F Source: [place] 2:10 PM CLINIC OTHER CAMPUS REPOSITORY TYPE CODE TESTS RESULT OUT OF REFERENCE UNITS RANGE LAB TP 6.3-8.0 g/dL Protein, Total 7.1 LAB ALB 3.9-4.9 g/dL Albumin 4.4 LAB CA 8.5-10.2 mg/dL Calcium, Total 9.5 LAB TBIL 0.2-1.3 mg/dL Bilirubin, Total 0.2 LAB ALKP 32-117 U/L Alkaline Phosphatase 57 LAB AST 13-35 U/L AST 15 LAB GLU 74-99 mg/dL Glucose 96 Result Comment: The [place] Diabetes Association (ADA) provides guidance for cutoff values for fasting glucose and random glucose. The ADA defines fasting as no caloric intake for at least 8 hours. Fas ting plasma glucose results between 100 to 125 mg/dL indicate increased risk for diabetes (prediabetes). Fasting plasma glucose results greater than or equal to 126 mg/dL meet the criteria for diagnosis of diabetes. In the absence of unequivocal hyperglycemia, results should be confirmed by repeat testing. In a patient with classic symptoms of hyperglycemia or hyperglycemic crisis, random plasma glucose results greater than or equal to 200 mg/dL meet the criteria for diagnosis of diabetes. Reference: Standards of Medical Care in Diabetes 2016, [place] [employer] Association. Diabetes Care. 2016.39(Suppl 1). LAB BUN 7-21 mg/dL BUN 9 LAB CRET 0.58-0.96 mg/dL Creatinine 0.61 LAB NA 136-144 mmol/L Sodium 141 LAB K 3.7-5.1 mmol/L Potassium 3.9 LAB CL 97-105 mmol/L Chloride 104 LAB CO2 22-30 mmol/L CO2 25 LAB AGAP 9-18 mmol/L Anion Gap 12 LAB ALT 7-38 U/L ALT 9 LAB GFRAA eGFR- Amer. >60 LAB GFRNAA . eGFR-All Other Races >60 Result Comment: eGFR (Estimated GFR) Units of measure: mL/min/1.73 meters squared eGFR is derived from the reexpressed MDRD Study equation using the following parameters: serum creatinine, age, gender and race. The creatinine assay has been calibrated to be traceable to IDMS. An eGFR <60 mL/min/1.73m2 for >3 months is consistent with chronic kidney disease. Refer to KDOQI guidelines for clinical interpretation. In patients with unstable renal function, e.g. those with acute kidney injury, the eGFR may not accurately reflect actual GFR. Performed By: #### CBCDIF, CMP, LIPA #### [facility] [address] [place] [address] LIPASE Collected: 07/13/2017 Status: F Source: [place] 2:10 PM CLINIC OTHER CAMPUS REPOSITORY TYPE CODE TESTS RESULT OUT OF REFERENCE UNITS RANGE LAB LIPA 16-61 U/L Lipase 19 Performed By: #### CBCDIF, CMP, LIPA #### [facility] [address] [place] [phone] URINALYSIS Collected: 07/13/2017 Status: F Source: [place] 1:26 PM CLINIC OTHER CAMPUS REPOSITORY TYPE CODE TESTS RESULT OUT OF RANGE REFERENCE UNITS LAB UCOL Yellow Color Abnormal Straw Alert LAB [facility] Clear Clarity Clear LAB UGLUC Negative mg/dL Glucose, Urine Negative LAB UBIL Negative Bilirubin, Urine Negative LAB UKET Negative Ketones, Urine Negative LAB USPG 1.001-1.029 Specific [place], Ur <=1.005 LAB UHGB Negative Abnormal Hemoglobin/Blood, Small Alert Ur LAB UPH 5.0-8.0 pH 7.0 LAB UPROT Negative mg/dL Protein, Urine Negative LAB UUROB 0.2-1.0 Urobilinogen 0.2 LAB UNITR Negative Nitrites Negative LAB ULKEST Negative Leukest Negative Performed By: #### JJ BRASWELLG, UAMIC #### [facility] [address] [place] [phone] HCG QUAL, URINE Collected: 07/13/2017 Status: F Source: [place] 1:26 PM [facility] OTHER CAMPUS REPOSITORY TYPE CODE TESTS RESULT OUT OF REFERENCE UNITS RANGE LAB UHCG Negative HCG Qual, Negative Urine Result Comment: False positives and false negatives are rare but have been described. Clinical correlation of the findings is recommended. Performed By: #### LORIN BRASWELL, UAMIC #### [facility] [address] [place] [phone] URINE MICROSCOPIC Collected: 07/13/2017 Status: F Source: [place] (FOR LAB USE ONLY) 1:26 PM [facility] OTHER CAMPUS REPOSITORY TYPE CODE TESTS RESULT OUT OF REFERENCE UNITS RANGE LAB UWBC 0-5 /HPF WBC 0-5 LAB URBC 0-3 /HPF RBC 0-3 LAB UCAST 0 /LPF Cast SEE COMMENT Result Comment: 0 LAB UBACT 0 /HPF Abnormal Bacteria Alert Occasional LAB UEPI /HPF SEE Epithelial Cells COMMENT Result Comment: 0-5 Squamous Epithelial Cells Performed By: #### FRENCH, UHCG, UAMIC #### [facility] [address] [place] [phone] Observed: 07/13/2017 Status: F Source: [place] URINE CULTURE 1:26 PM [facility] OTHER CAMPUS REPOSITORY Sp. Request/Comment: - Specimen received in preservative Culture Result - No growth (<1,000 CFU/ml) Performed By: #### URCUL #### [facility] [address] [facility] [phone] [facility] [address] [place] [address] ED NOTE Observed: 07/13/2017 Status: COMPLETED Source: [place] 1:15 PM CLINIC OTHER CAMPUS REPOSITORY HNO ID: [id number] Author: Denice Bajwa (Rn), RN Service: Emergency Medicine Author Type: Registered Nurse Type: ED Notes Filed: 07/13/2017 1:17 PM Note Text: Pt was at the gym on when she thought she pulled a muscle between the vagina and rectum as she was having pain. The pain has worsened. Last evening patient noted orangnish pink stuff with chunks coming out of her rectum. ALLERGIES ALLERGIES DATE TYPE / CODE NAME / CODE REACTION SEVERITY SOURCE NG/[id number] NO KNOWN [facility] 6(SNOMED ALLERGIES Health [facility] CT) Repository Drug NO KNOWN [facility] Class/59581 ALLERGIES Other [place] 1003(SNOMED Repository CT) ENCOUNTERS ENCOUNTERS ADMIT/DISCHARGE ACCOUNT NUMBER ADMITTING ENCOUNTER LOCATION SOURCE CLASS 02/13/2018 [id number] Ambulatory [facility] ding:WOBLAB Repository 11/22/2017/11/23/19 [id number] Emergency [address] Other [place] Repository 10/31/2017/11/01/19 [id number] Ambulatory [address] Repository 10/31/2017/11/01/19 [id number] Ambulatory [address] MEDICAL Repository CENTERBuildi ng:SPBA 10/22/2017 [id number] Ambulatory [facility] MEDICAL Repository CENTERBuildi ng:SPBA 10/21/2017/10/22/19 [id number] Ambulatory [address] Main [place] Repository 10/17/2017/10/21/19 [id number] Ambulatory [address] Main [place] Repository 10/15/2017/10/17/19 [id number] Ambulatory [address] Main [place] Repository 10/10/2017/10/11/19 [id number] Ambulatory [address] Main [place] Repository 10/09/2017/11/05/19 [id number] Ambulatory [address] Main [place] Repository 09/23/2017/09/25/19 [id number] Ambulatory [place] [facility] Main [place] Repository 09/12/2017/09/16/19 [id number] Ambulatory [place] 18 [facility] Main [place] Repository 09/08/2017/09/11/19 [id number] Ambulatory [place] 18 [facility] Main [place] Repository 09/01/2017/09/02/19 [id number] JOHNNY, Ambulatory [place] 18 [facility] Other [place] Repository 08/14/2017 [id number] JOHNNY, Ambulatory [facility] E [facility] Other [place] Repository 08/12/2017/08/15/19 [id number] Ambulatory [place] 18 [facility] Main [place] Repository 07/22/2017/07/24/19 [id number] Ambulatory [place] 18 [facility] Main [place] Repository 07/16/2017/07/18/19 [id number] JOHNNY, Ambulatory [address] Other [place] Repository 07/16/2017/07/18/19 [id number] Ambulatory [address] Main [place] Repository 07/15/2017/07/17/19 [id number] Ambulatory [address] Main [place] Repository 07/13/2017/07/14/19 [id number] Emergency [address] Other [place] Repository 07/13/2017/07/14/19 [id number] Emergency [address] MEDICAL Repository MYRTLEBuildi ng:PAEDRoom: EDBed: 30 07/13/2017/07/14/19 [id number] Emergency [address] Other [place] Repository PAYERS PAYERS ENCOUNTER GUARANTOR PAYER SUBSCRIBER SOURCE 02/13/2018 SARANYA Primary Insurance:[facility] RDUNIT Number: [id number] [id number] Repository 82732Rks: 330) Date:[id number] [phone] ([facility] [address] [place] [address] 97569HS: 02/13/2018 Secondary NOT GIVENJOSE Kahn Insurance:SELF PAY [facility] Number: Effective Repository Date:2018-02-13 10/31/2017 SARANYA Jose Primary SARANYA Jose [facility] [id number] Insurance:JENNA BAERB: [facility] HARMONDOB: CLAIMS MGMTPolicy [id number] [facility] [id number] [place], [place] Date: [address]Xhu: () 10/22/2017 SARANYA Jose [facility] SARANYA Jose [facility] [id number] Insurance:JENNAElasticaB: [facility] HARMONDOB: CLAIMS MGMTPolicy [id number] [facility] [id number] [place], [place] Date: [address]Apq: ()
== END ==
PROVIDERS: Visit Provider Obstetrics & Gynecology
DX: Z34.82 Encounter for supervision of other normal pregnancy, second trimester (principal)
CPT/HCPCS: 36415; 82950; 85027; 86850; 86900

== ENCOUNTER → 2018-03-25 16:06 | Outpatient (CLI) | payer MEDICAID, SELFPAY ==
--- OUTSIDE RECORDS SUMMARY | 2018-05-27 18:37 | XMS RPT_ITS ---
:1990 Author Organization OHIP Care Team Providers Name Role Phone KANE MOREIRA (RES) Attending Unavailable SAMSON, EARLINE E Admitting Unavailable SAMSON, EARLINE E Attending Unavailable SAMSON, EARLINE E Referring Unavailable SAMSON, EARLINE E Admitting Unavailable SAMSON, EARLINE E Attending Unavailable SAMSON, EARLINE E Admitting Unavailable SAMSON, EARLINE E Attending Unavailable KHUSHI, KIZZY Attending Unavailable PROVIDER, UNKNOWN Attending Unavailable Kiki Truong Attending Unavailable Kiki Truong Attending Unavailable SAMSON, EARLINE E Attending Unavailable HARDIK, ZAFAR MARQUIS Referring Unavailable ROJAS RENNER Attending Unavailable JOSE ALBERTO, NERISSA (DRUG DISCOVERY INFORMATICS SPECIALIST) Attending Unavailable JOSE ALBERTO, NERISSA (DRUG DISCOVERY INFORMATICS SPECIALIST) Referring Unavailable KANE KERN Referring Unavailable KANE KERN Attending Unavailable SAMSON, EARLINE E Attending Unavailable NERISSA ABRAMS (DRUG DISCOVERY INFORMATICS SPECIALIST) Referring Unavailable JOSE ALBERTO NERISSA (DRUG DISCOVERY INFORMATICS SPECIALIST) Attending Unavailable SAMSON, EARLINE E Referring Unavailable SAMSON, EARLINE E Attending Unavailable SAMSON, EARLINE E Referring Unavailable JOSE ALBERTO, NERISSA (DRUG DISCOVERY INFORMATICS SPECIALIST) Attending Unavailable JOSE ALBERTO, NERISSA (DRUG DISCOVERY INFORMATICS SPECIALIST) Attending Unavailable JOSE ALBERTO, NERISSA (DRUG DISCOVERY INFORMATICS SPECIALIST) Referring Unavailable JOSE ALBERTONERISSA Knapp (DRUG DISCOVERY INFORMATICS SPECIALIST) Attending Unavailable JOSE ALBERTO, NERISSA (DRUG DISCOVERY INFORMATICS SPECIALIST) Referring Unavailable JOSE ALBERTO NERISSA (DRUG DISCOVERY INFORMATICS SPECIALIST) Attending Unavailable JOSÉ LUIS BIRDIE Referring Unavailable HARDIK, ZAFAR Primary Care Unavailable MD KANE MOREIRA Attending Unavailable GORGE MONTOYAA Attending Unavailable IMCA Referring Unavailable ZAFAR DYE Primary Care Unavailable GORGE MONTOYAA Attending Unavailable IMCA Referring Unavailable HARDIK, ZAFAR Primary Care Unavailable PROBLEMS PROBLEMS DATE TYPE CONDITION / CODE ATTENDING STATUS SOURCE 03/25/2018 Unknown R19.7 - Diarrhea, Kiki Truong Active [facility] unspecified / Community R19.7(ICD-10) Hospital Repository 02/13/2018 Unknown Z34.82 - Encounter Kiki Truong Active [facility] for supervision of Community other normal Hospital , second Repository trimester / Z34.82(ICD-10) 11/22/2017 Active Other specified Unknown Active [facility] related [facility] Other conditions, second [place] trimester / Repository O26.892(ICD-10) 11/22/2017 Active Unspecified Unknown Active [facility] abdominal pain / Clinic Other R10.9(ICD-10) [place] Repository 11/22/2017 Active Nausea / Unknown Active [facility] R11.0(ICD-10) Clinic Other [place] Repository 10/31/2017 Active Sprain of sacroiliac MONTOYA, KIZZY Active [facility] joint, initial Clinic Other encounter / [place] S33.6XXA(ICD-10) Repository 01/17/2016 Active Other intervertebral MONTOYA, KIZZY Active [facility] disc displacement, Clinic Other lumbar region / [place] M51.26(ICD-10) Repository 10/31/2017 Admitting Unknown / MONTOYA, KIZZY Active [facility] UNK(Unknown) [facility] Repository 10/10/2017 Active Encounter for NA Active [facility] supervision of other Clinic Main normal , [place] first trimester / Repository Z34.81(ICD-10) 08/12/2017 Active Anal fistula / SAMSON, Active [facility] K60.3(ICD-10) EARLINE E Clinic Other [place] Repository 07/16/2017 Active Rectal abscess / SAMSON, Active [facility] K61.1(ICD-10) EARLINE E Clinic Other [place] Repository 07/13/2017 Active Other specified KANE MOREIRA Active [facility] diseases of anus and (RES) Clinic Other rectum / [place] K62.89(ICD-10) Repository 07/13/2017 Active Bacteriuria / NA Active [facility] R82.71(ICD-10) Clinic Other [place] Repository 07/13/2017 Active Unspecified NA Active [facility] condition associated Clinic Other with female genital [place] organs and menstrual Repository cycle / N94.9(ICD-10) PROCEDURES PROCEDURES No Procedure Records FoundRESULTS RESULTS Observed: 03/25/2018 Status: C Source: [place] CDIFF (MOLECULAR) 3:20 PM [facility] REPOSITORY Copy of report sent to Infection Control Printer [id number] 03/26/18 [id number] MARIE Cdiff-Molecular Normal Reference Range = Negative CRITICAL VALUE VERIFIED. CALLED TO DR TRUONG 03/25/18 Shahid Almazan. RESULTS READ BACK BY DR TRUONG . C. Diff DNA Positive-Toxigenic C. Difficile DNA Detected NAAT METHOD Testing was performed using nucleic acid amplification ORGANISM 1: Toxigenic C. difficile DNA Performed By: #### M100.6796 #### [facility] [address] [place], [address] CBC-COMPLETE BLOOD CNT Collected: 02/13/2018 Status: F Source: [place] NO DIFF 10:05 AM [facility] REPOSITORY TYPE CODE TESTS RESULT OUT [...] MPV 10.3 Performed By: #### L100.0500 #### [facility] [address] [place], [address] GLUCOSE CHALLENGE GEST Collected: 02/13/2018 Status: F Source: [facility] 1H 50G 10:05 AM [facility] REPOSITORY TYPE CODE TESTS RESULT OUT OF RANGE REFERENCE UNITS LAB L501.0250 70-140 mg/dL Normal GLU GEST 120 50g 1H Performed By: #### L501.0250 #### [facility] [address] [place], [address] TYPE AND SCREEN Collected: 02/13/2018 Status: F Source: [place] 10:05 AM [facility] REPOSITORY Order Comment: Reason for Type AND Screen/Red Cells: TYPE CODE TESTS RESULT OUT OF RANGE REFERENCE UNITS LAB B10.0800 A Normal BLOOD TYPE GEL POSITIVE LAB B100.4000 Normal Antibody NEGATIVE Screen Performed By: #### B101.7450 #### [facility] [address] [place], [address] ED PROV NOTE Observed: 11/22/2017 Status: COMPLETED Source: [place] 7:41 PM CLINIC OTHER CAMPUS REPOSITORY HNO ID: [id number] Author: Moses Rivera DO Service: Emergency Medicine [...] 34.2 (*) 36.0 - 46.0 % Abs [place] 1.00 (*) <0.87 k/uL All other components [...] Tylenol as needed. Will follow up with FRUIT [facility]MPER within 2-3 days and return immediately with [...] ED NOTE Observed: 11/22/2017 Status: COMPLETED Source: [place] 7:41 PM [facility] REPOSITORY HNO ID: [id number] Author: Barbara Camacho (Medic) Service: Emergency Medicine Author Type: Table Worker and Club Waiter/Waitress Type: ED Notes Filed: 11/24/2017 12:57 PM [...] ED NOTE Observed: 11/22/2017 Status: COMPLETED Source: [place] 7:40 PM [facility] REPOSITORY HNO ID: [id number] Author: Brinda Farrell RN Service: (none) Author Type: Registered Nurse Type: ED Notes Filed: 11/22/2017 7:41 PM Note Text: Discharge instructions d/w pt at bedside. Stated understanding with no further questions for this nurse. Encouraged f/u with PCP and referring doctors given. Stated understanding. Prescription(S) were given X0. ED NOTE Observed: 11/22/2017 Status: COMPLETED Source: [place] 7:23 PM [facility] OTHER [place] REPOSITORY HNO ID: [id number] Author: Brinda Farrell RN Service: (none) Author Type: Registered Nurse Type: ED Notes Filed: 11/22/2017 7:23 PM Note Text: Dr. Rivera back in at bedside with update and to discuss plan of care. Advised pt and family of results in ED, they agree and verbalize understanding. US PREG TRANSABD >14 Observed: 11/22/2017 Status: F Source: [facility] 6:49 PM CLINIC OTHER [place] REPOSITORY * * *Final Report* * * DATE OF EXAM: Nov 22 2017 6:49PM TOM 1036 - US PREG TRANSABD >14 WEEKS LTD / PROCEDURE REASON: Pelvic pain, positive beta-HCG, cartridge loader etiol suspected * * * * Physician Interpretation * * * * PROCEDURE: US PREG TRANSABD >14 WEEKS LTD INDICATION: Pelvic pain, positive beta-HCG, cartridge loader etiol suspected TECHNIQUE: Multiple sonographic images of [...] age of 15 weeks and 3 days. Traveling Freight Agent: PSCB Transcribe Date/Time: Nov 22 2017 6:53P Dictated by : LAINA DOHERTY MD This examination was interpreted and the report reviewed and electronically signed by: LAINA DOHERTY MD on Nov 22 2017 6:55PM EST [id number] ED NOTE Observed: 11/22/2017 Status: COMPLETED Source: [place] 6:11 PM [facility] OTHER [place] REPOSITORY HNO ID: [id number] Author: Brinda Harris) ROMAN Farrell Service: (none) Author Type: Registered Nurse Type: ED Notes Filed: 11/22/2017 6:11 PM Note Text: U/S at bedside at this time. Observed: 11/22/2017 Status: F Source: [place] BACT/CAND VAG [facility] 5:32 PM [facility] OTHER [place] REPOSITORY Smear Result - BACTERIAL VAGINOSIS RESULT: Stain results consistent with normal vaginal jonathan. No Yeast observed Rare Polymorphonuclear leukocytes Moderate Epithelial cells Performed By: #### BVCNSM #### [facility] [address] [place], [place] [address] Observed: 11/22/2017 Status: F Source: [place] TRICHOMONAS PREP 5:31 PM [facility] OTHER [place] REPOSITORY Smear Result - Negative for Trichomonas vaginalis antigen Performed By: #### TRICHO #### [facility] [address] [place] [address] GC/CHLAMYDIA AMPLIF Collected: 11/22/2017 Status: F Source: [place] 5:30 PM [facility] REPOSITORY TYPE CODE TESTS RESULT OUT OF REFERENCE UNITS RANGE LAB GCCTSR GC/Chlam Amp Vaginal Source LAB GCAMPL GC Negative Amplification for Neisseria gonorrhoeae by amplification. LAB CLAMPL Chlamydia Negative Amplif for Chlamydia trachomatis by amplification. Performed By: #### GCCT #### [facility] [address] [place] [address] [facility] [address] [place] [address] URINALYSIS Collected: 11/22/2017 Status: F Source: [place] 5:29 PM [facility] REPOSITORY TYPE CODE TESTS RESULT OUT OF RANGE REFERENCE UNITS LAB UCOL Yellow Color Yellow LAB [facility] Clear Clarity Clear LAB UGLUC Negative mg/dL Glucose, Urine Negative LAB UBIL Negative Bilirubin, Urine Negative LAB UKET Negative Ketones, Urine Negative LAB USPG 1.001-1.029 Specific [place], Ur <=1.005 LAB UHGB Negative Abnormal Hemoglobin/Blood, Trace Alert Ur LAB UPH 5.0-8.0 pH 6.5 LAB UPROT Negative mg/dL Protein, Urine Negative LAB UUROB 0.2-1.0 Urobilinogen 0.2 LAB UNITR Negative Nitrites Negative LAB ULKEST Negative Leukest Negative Performed By: #### UA, UAMIC #### [facility] [address] [place] [address] URINE MICROSCOPIC Collected: 11/22/2017 Status: F Source: [place] (FOR LAB USE ONLY) 5:29 PM [facility] REPOSITORY TYPE CODE TESTS RESULT OUT OF REFERENCE UNITS RANGE LAB UWBC 0-5 /HPF WBC 0-5 LAB URBC 0-3 /HPF RBC 0-3 LAB UCAST 0 /LPF Cast SEE COMMENT Result Comment: 0 LAB UBACT 0 /HPF Abnormal Bacteria Alert Few LAB UEPI /HPF Epithelial Cells SEE COMMENT Result Comment: 0-5 Squamous Epithelial Cells Performed By: #### UA, UAMIC #### [facility] [address] [place] [address] CBC AND DIFFERENTIAL Collected: 11/22/2017 Status: F Source: [place] 5:12 PM CLINIC OTHER CAMPUS REPOSITORY TYPE [...] k/uL Abs Lymph 1.60 LAB AMONO % [place]% 9.9 LAB AAMONO <0.87 k/uL Abs [place] High 1.00 LAB AEOS % Eosin% 0.8 LAB AAEOS <0.46 k/uL Abs Eosin 0.08 LAB ABASO % Baso% 0.2 LAB AABASO <0.11 k/uL Abs Baso <0.03 Performed By: #### CBCDIF, CMP, LIPA #### [facility] [address] [place] [address] COMP METABOLIC PANEL Collected: 11/22/2017 Status: F Source: [place] 5:12 PM [facility] OTHER CAMPUS REPOSITORY TYPE CODE TESTS RESULT [...] 74-99 mg/dL Glucose 85 Result Comment: The [place] Diabetes Association (ADA) provides guidance for cutoff [...] Standards of Medical Care in Diabetes 2016, [place] [employer] Association. Diabetes Care. 2016.39(Suppl 1). LAB [...] Performed By: #### CBCDIF, CMP, LIPA #### [facility] [address] [place] [address] LIPASE Collected: 11/22/2017 Status: F Source: [place] 5:12 PM CLINIC OTHER CAMPUS REPOSITORY TYPE CODE TESTS RESULT OUT OF REFERENCE UNITS RANGE LAB LIPA 16-61 U/L Lipase 19 Performed By: #### CBCDIF, CMP, LIPA #### [facility] [address] [place] [address] TYPE AND SCR,PRENATL Collected: 11/22/2017 Status: F Source: [place] 5:12 PM CLINIC OTHER CAMPUS REPOSITORY TYPE CODE TESTS RESULT OUT OF REFERENCE UNITS RANGE LAB %ABR A ABO/RH(D) POSITIVE LAB % Antibody NEG Screen Performed By: #### TSPN #### [facility] [address] [phone] ED NOTE Observed: 11/22/2017 Status: COMPLETED Source: [place] 4:57 PM CLINIC OTHER CAMPUS REPOSITORY HNO ID: [id number] Author: Brinda CeballosRn) Jami, RN Service: (none) Author Type: Registered Nurse Type: ED Notes Filed: 11/22/2017 4:57 PM Note Text: Dr. Rivera at bedside at this time. ED NOTE Observed: 11/22/2017 Status: COMPLETED Source: [place] 4:38 PM CLINIC OTHER CAMPUS REPOSITORY HNO ID: [id number] Author: Eli CeballosRn) ROMAN Rea Service: (none) Author Type: Registered Nurse Type: ED Notes Filed: 11/22/2017 4:39 PM Note Text: Patient presents to the ED with cramping that started this am. Patient is 15 weeks . HCG, QUANTITATIVE BL Collected: 11/22/2017 Status: F Source: [place] 3:12 PM CLINIC OTHER CAMPUS REPOSITORY TYPE CODE TESTS RESULT OUT OF REFERENCE UNITS RANGE LAB HCGQT <5.0 mU/mL HCG, High Quantitative Bl 05143.0 Result Comment: QUANTITATIVE HCG NORMAL RANGES Weeks of Gestation (Weeks Since LMP) 3 Weeks (5.8-71.2 mIU/mL) 4 Weeks (9.5-750 mIU/mL) 5 Weeks (217-7138 mIU/mL) 6 Weeks (158-70623 mIU/mL) 7 Weeks (3697-779696 mIU/mL) 8 Weeks (70065-016305 mIU/mL) 9 Weeks (67159-441992 mIU/mL) 10 Weeks (17031-160870 mIU/mL) 12 Weeks (35642-142997 mIU/mL) Referenced to [facility]th [facility] Performed By: #### HCGQT #### [facility] [address] [facility] [phone] PROGRESS Observed: 10/31/2017 Status: COMPLETED Source: [place] 10:50 AM CLINIC OTHER CAMPUS REPOSITORY O ID: [id number] Author: Kizzy Montoya Service: (none) Author Type: [...] weeks . 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 She last had imaging in 2013. . Results MRI LUMBAR SPINE WO CONTRAST (Order [id number]) Patient Info Patient Name Sex Saranya Almaraz ([id number]) Female 1990 11w3d Result Date - 07/02/2013 Results * * *Final Report* * * ? DATE OF EXAM: July ?2013 ?7:35PM ? [facility] ? 0560 ?- ?MRI LUMBAR SPINE WO [...] disc degeneration. ?Remaining lumbar spine is normal. 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 She last had imaging in 2013. . Results MRI LUMBAR SPINE WO CONTRAST (Order [id number]) Patient Info Patient Name Sex Saranya Almaraz ([id number]) Female 1990 11w3d Result Date - 07/02/2013 Results * * *Final Report* * * ? DATE OF EXAM: July ?2013 ?7:35PM ? [facility] ? 0560 ?- ?MRI LUMBAR SPINE WO [...] disc degeneration. ?Remaining lumbar spine is normal. Traveling Freight Agent: MANJU Transcribe Date/Time: July ?7:48P Dictated by : [...] Allergies) Date Reviewed: 10/31/2017 Reviewed by: Radha ([facility]) [place] - Fully Assessed Reason for Visit: New Patient Evaluation [154] Low Back Pain [126] Hip Pain [136] Bwc (Worker's Comp) [4136] Reason For Visit History Recorded Primary Visit [...] of Service: NEW PATIENT VISIT LEVEL 4 [47114] Follow-up and Disposition History Recorded Encounter Status:Closed by KIZZY MONTOYA MD on 10/31/17 PROGRESS Observed: 10/21/2017 Status: COMPLETED Source: [place] 1:20 PM [facility] REPOSITORY HNO ID: [id number] Author: Earline Samson Service: (none) Author Type: Physician Type: Progress Notes Filed: 10/21/2017 1:28 PM Note Text: HPI: Saranya returns in f/u of rectal pain. 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 She continues to have rectal pain with bowel movements. She has tried to increase her fiber but has not been regular with it. EXAM: [facility] 08/12/2017 Evidence of an anterior anal fissure [...] MD CNOV Observed: 10/21/2017 Status: COMPLETED Source: [place] 12:45 PM [facility] REPOSITORY Office Visit (MARIA GUADALUPE) MALAVESARANYA Damon ([id number]) 1990 F Date Time Provider Department 10/21/17 [...] has not been regular with it. EXAM: [facility] 08/12/2017 Evidence of an anterior anal fissure [...] Earline Samson MD Referring Provider: ZAFAR DYE [[id number]] Allergies As of Date: 10/21/2017 (No Known [...] AND SCR,PRENATL Collected: 10/17/2017 Status: F Source: [place] 11:28 AM [facility] OTHER CAMPUS REPOSITORY TYPE CODE TESTS RESULT OUT OF REFERENCE UNITS RANGE LAB %ABR A ABO/RH(D) POSITIVE LAB % Antibody NEG Screen Performed By: #### TSPN #### [facility] [address] [place] [address] GC/CHLAMYDIA AMPLIF Collected: 10/17/2017 Status: F Source: [place] 11:28 [facility] [place] REPOSITORY TYPE CODE TESTS RESULT OUT OF REFERENCE UNITS RANGE LAB GCCTSR GC/Chlam Amp Vaginal Source LAB GCAMPL GC Negative Amplification for Neisseria gonorrhoeae by amplification. LAB CLAMPL Chlamydia Negative Amplif for Chlamydia trachomatis by amplification. Performed By: #### GCCT #### [facility] [address] [place] [address] [place] [address] CBC Collected: 10/17/2017 Status: F Source: [place] 11:22 [facility] REPOSITORY TYPE CODE TESTS RESULT [...] #### CBC, SYPHGX, HBSAG, HIV12C, RUBIGG #### [place] [address] SYPHILIS IGG WITH Collected: 10/17/2017 Status: F Source: [facility] 11:22 AM [facility] REPOSITORY TYPE CODE TESTS RESULT OUT OF REFERENCE UNITS RANGE LAB SYPHQL Nonreactive Syphilis IgG, Nonreactive Qual Result Comment: No serological evidence of infection with T. pallidum. LAB SYPHLG AI Syphilis IgG <0.2 Result Comment: Antibody index is interpreted as follows: Non reactive SPECIMENS <=0.8 Weak reactive SPECIMENS 0.9 to 5.9 Reactive SPECIMENS >=6.0 Performed By: #### CBC, SYPHGX, HBSAG, HIV12C, RUBIGG #### [facility] [address] [place] [address] HEPATITIS B SURF. AG Collected: 10/17/2017 Status: F Source: [place] 11:22 AM [facility] REPOSITORY TYPE CODE TESTS RESULT OUT OF REFERENCE UNITS RANGE LAB HBSAG Negative Hepatitis B Negative Surf. Ag Performed By: #### CBC, SYPHGX, HBSAG, HIV12C, RUBIGG #### [place] [id number] [place] [address] HIV 12 COMBO (AG/AB) Collected: 10/17/2017 Status: F Source: [place] 11:22 AM [facility] REPOSITORY TYPE CODE TESTS RESULT OUT OF REFERENCE UNITS RANGE LAB HVAGAB Non Reactive HIV Non Reactive 12 Ag/Ab Result Comment: (NOTE) HIV Information: [place] Rev. Code 3701.243(E): This information has been [...] #### CBC, SYPHGX, HBSAG, HIV12C, RUBIGG #### [facility] [address] [place] [address] RUBELLA IGG ANTIBODY Collected: 10/17/2017 Status: F Source: [place] 11:22 AM [facility] REPOSITORY TYPE CODE TESTS RESULT OUT OF [...] #### CBC, SYPHGX, HBSAG, HIV12C, RUBIGG #### [facility] [address] [place] [id number] CYTOLOGY Observed: 10/17/2017 Status: F Source: [place] 11:22 AM [facility] REPOSITORY Specimen originated from [facility] Specimen #: [id number] Submitting Physician: ROJAS RENNER MD SPECIMEN SUBMITTED [...] from every slide are reviewed by a anchor operator. JAYJAY Stern(ASCP) (Electronic Signature) CLINICAL DATA - INDICATE WEEKS, HPV Testing: Yes, Reflex HPV for ASCUS Date of Last Menstrual Period: 08/12/2017() STAINS A: CERVICAL, SCREENING, FLUID THIN PREP OFFICE RN Miley Tijerina M.D., Drafting Engineer Date of Report: 10/29/2017 Date of Procedure: 10/17/2017 Date of Receipt: 10/20/2017 Submitted by: ROJAS RENNER MD Location: [facility] Diagnostic interpretation performed at [facility], [address] [place] [address] [place] [id number]. The Pap Smear is a screening test for cervical cancer. False negative results occur with all screening tests, emphasizing the need for rescreening at recommended intervals, and clinical correlation. 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 NAVJOT Observed: 10/15/2017 Status: COMPLETED Source: [place] 11:40 AM [facility] REPOSITORY Office Visit (GENE) SARANYA MALAVE ([id number]) 1990 F Date Time Provider Department 10/15/17 11:40 AM NERISSA ABRAMS ([facility]) MARIA GUADALUPE During your visit today, [...] No history of dysuria, frequency or incontinence OFFICE RN: MUSCULOSKELETAL: Negative for joint pain or swelling, [...] to her . Referring Provider: NERISSA ABRAMS ([facility]) [[id number]] Allergies As of Date: 10/15/2017 (No Known Allergies) Date Reviewed: 10/15/2017 Reviewed by: Nerissa (Unique) Jose Alberto - [...] 10/15/17 CNCO Observed: 10/15/2017 Status: COMPLETED Source: [place] 12:00 AM [facility] REPOSITORY Letter Text Kane Kern MD [facility] [address] [place] [address], [address] [place] [address] Saranya Malave October 15, 2017 RE: Saranya [...] signed) PROGRESS Observed: 10/10/2017 Status: COMPLETED Source: [place] 8:07 AM [facility] REPOSITORY O ID: [id number] Author: Faith Tanner Rdms Service: (none) Author [...] TRANSVAG <14 Observed: 10/10/2017 Status: F Source: [facility] 8:03 AM [facility] REPOSITORY * * *Final Report* * * [...] 7.4 cm. There is an intrauterine gestation. [place]-rump length measures 2.6 cm, corresponding to an [...] 3.3 cm cyst within the right ovary. Traveling Freight Agent: PSCB Transcribe Date/Time: Oct 10 2017 8:08A Dictated by : MENDOZA PENNINGTON MD This examination was interpreted and the report reviewed and electronically signed by: MENDOZA PENNINGTON MD on Oct 10 2017 8:11AM EST [id number] PROGRESS Observed: 10/09/2017 Status: COMPLETED Source: [place] 1:55 PM [facility] REPOSITORY O ID: [id number] Author: Kane Kern Service: (none) Author Type: [...] educational discussion with the patient regarding her [place] a low risk based on negative test at time of surgery. 2) uncertain LMP, will obtain ultrasound to confirm gestational age 3) Zofran or Phenergan to treat morning sickness 4) already scheduled as an appointment with Dr. Renner for new OB. Kane Kenr MD CNOV Observed: 10/09/2017 Status: COMPLETED Source: [place] 1:30 PM [facility] REPOSITORY Office Visit (OBGMEM) SARANYA MALAVE ([id number]) 1990 F Date Time Provider Department 10/09/17 1:30 PM KANE KERN OBEM During your visit today, we recorded the [...] educational discussion with the patient regarding her [place] a low risk based on negative test [...] as needed for Nausea/Vomiting.Disp: 30 tabletRfl: 5 PREG TRANSABD <14 WEEKS LTD [[id number]] Order #: [id number] FUTURE US PREG TRANSVAG <14 WEEKS [[id number]] Order #: [id number] FUTURE Prescriptions as of 10/09/2017 Sig: PROMETHAZINE [...] 11/03/17 PROGRESS Observed: 09/23/2017 Status: COMPLETED Source: [place] 4:58 PM [facility] REPOSITORY HNO ID: [id number] Author: Earline Samson Service: (none) Author Type: [...] encouraged her to follow up with the honing machine operator production to address these concerns. She can return to see me as needed. No orders found for this visit on 09/23/17. Earline Samson MD CNOV Observed: 09/23/2017 Status: COMPLETED Source: [place] 3:15 PM [facility] REPOSITORY Office Visit (GENSME) SARANYA MALAVE ([id number]) 1990 F Date Time Provider Department 09/23/17 [...] encouraged her to follow up with the honing machine operator production to address these concerns. She can return to see me as needed. No orders found for this visit on 09/23/17. Earline Samson MD Referring Provider: NERISSA ABRAMS ([facility]) [[id number]] Allergies As of Date: 09/23/2017 (No Known [...] 09/23/17 PROGRESS Observed: 09/12/2017 Status: COMPLETED Source: [place] 2:53 PM [facility] REPOSITORY HNO ID: [id number] Author: Nerissa (Pediatric Immunologist) Jose Alberto Service: (none) Author Type: Nurse [...] week. 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 Referring Provider: EARLINE SAMSON [[id number]] Allergies As of Date: 09/12/2017 (No Known Allergies) Date Reviewed: 09/12/2017 Reviewed by: Nerissa ([facility]) Jose Alberto - Fully Assessed Reason [...] 09/12/17 PROGRESS Observed: 09/09/2017 Status: COMPLETED Source: [place] 5:08 PM [facility] REPOSITORY HNO ID: [id number] Author: Earline Samson Service: (none) Author Type: [...] papilla. PATHOLOGY: No evidence for Crohn's ASSESSMENT: (Mandi60.3) Anal fistula (primary encounter diagnosis) (R19.7) Diarrhea, [...] DIFFICILE PCR Collected: 09/08/2017 Status: F Source: [place] 10:45 AM [facility] REPOSITORY TYPE CODE TESTS RESULT OUT OF [...] specimen submission. Performed By: #### CDPCR #### [facility] [address] [place] [address] C. DIFF TOXIN BY Collected: 09/08/2017 Status: F Source: [place] EIA LAB 10:45 AM [facility] ORDER ONLY REPOSITORY TYPE CODE TESTS RESULT OUT OF REFERENCE UNITS RANGE LAB CDEIAT C. difficile toxin not detected C.diff by EIA. Toxin EIA Toxin EIA is less sensitive than cell cytotoxin and PCR assays. Clinical correlation of PCR positive/toxin EIA negative results is required to distinguish C. difficile colonization from disease. Performed By: #### CDEIA #### [facility] [address] [place] [id number] ENTERIC BACT PNL PCR Collected: 09/08/2017 Status: F Source: [place] 10:45 AM [facility] REPOSITORY TYPE CODE TESTS RESULT OUT OF REFERENCE UNITS RANGE LAB PCRSHG Shigella/EIEC Not Detected DNA LAB PCRCMP Campy jejun/coli DNA Not Detected LAB PCRSTX Shiga toxin gene(s) Not Detected LAB PCRSAL Salmonella spp. Not Detected DNA Performed By: #### STLPCR #### [facility] [address] [place], [place] [address] ALONAOV Observed: 09/08/2017 Status: COMPLETED Source: [place] 9:45 AM [facility] REPOSITORY Office Visit (GENSME) SARANYA AMLAVE ([id number]) 1990 F Date Time Provider Department 09/08/17 [...] Earline Samson MD Referring Provider: EARLINE SAMSON [[id number]] Allergies As of Date: 09/08/2017 (No Known Allergies) Date Reviewed: 09/08/2017 Reviewed by: Sandra Ma LPN - Fully Assessed Reason for Visit: Post Op [174] Cmt: Rectal exam under anesthesia and fistulotomy Primary Visit Diagnosis:Anal fistula [K60.3] Other Visit Diagnosis:Diarrhea, unspecified type [R19.7] Order(s):C. DIFFICILE PCR [SQCDPCR] Order #: [id number]. #:[id number] ENTERIC BACTERIAL PANEL BY PCR [SQSTLPCR] Order #: [id number] FUTURE ENTERIC BACTERIAL PANEL BY PCR [SQSTLPCR] Order #: [id number]. #:[id number] C. DIFFICILE TOXIN BY EIA [SQCDEIA] Order #: [id number]. #:[id number] Prescriptions as of 09/08/2017 Sig: HYDROCODONE 5 [...] ANES POST Observed: 09/01/2017 Status: COMPLETED Source: [place] 1:31 PM CLINIC OTHER CAMPUS REPOSITORY O ID: [id number] Author: Liborio Ornelas Service: Anesthesiology Author Type: [...] 01, 2017 TIME: 1:36 PM PAGER/CONTACT #: [phone] PT ED Observed: 09/01/2017 Status: COMPLETED Source: [place] 1:28 PM [facility] OTHER [place] REPOSITORY HNO ID: [id number] Author: Denice Oconnor (Rn) ROMAN Morales Service: (none) Author Type: Registered Nurse Type: Patient Education Filed: 09/01/2017 1:31 PM Note Text: PATIENT EDUCATION TOPIC: PROCEDURE / SURGERY: Post-op Teaching: Symptom Management PATIENT NAME: Saranya Malave PATIENT LOCATION: OR Surgery/OR Surgery READINESS TO LEARN COGNITIVE ABILITY: Alert [...] OP NOT Observed: 09/01/2017 Status: COMPLETED Source: [place] 12:21 PM [facility] OTHER CAMPUS REPOSITORY HNO ID: [id number] Author: Earline Samson Service: General Surgery Author Type: Physician Type: Brief Op Note Filed: 09/01/2017 12:25 PM Note Text: BRIEF OPERATIVE / PROCEDURE NOTE LOG ID: [id number] SURGERY/PROCEDURE DATE: 09/01/2017 INCISION/PROCEDURE START TIME: 11:43 AM INCISION CLOSE/PROCEDURE END TIME: 12:02 PM SURGEON(S)/PROCEDURALIST(S) AND LINUX NETWORK SYSTEMS ADMINISTRATOR(S): Surgeon(s) and Role: * Earline Samson - Primary Registered Nurse Trade Show Specialist: Jeannine (Rn) ROMAN Godoy SURGERY/PROCEDURE(S): Rectal EUA and fistulotomy ANESTHESIA: Monitored Anesthesia Care FINDINGS: see report ESTIMATED BLOOD LOSS: min SPECIMENS: 1 COMPLICATIONS: None PRE-OP/PRE-PROCEDURE DIAGNOSIS: Fistula in ano POST-OP/POST-PROCEDURE DIAGNOSIS: same # [id number] SIGNATURE: Earline Samson MD PATIENT NAME: Saranya Malave DATE: September 01, 2017 TIME: 12:21 PM PAGER/CONTACT #: SURGICAL PATHOLOGY Observed: 09/01/2017 Status: F Source: [place] 12:00 PM [facility] OTHER [place] REPOSITORY Specimen originated from [facility] Specimen #: [id number] Submitting Physician: Earline Samson M.D. FINAL DIAGNOSIS Anoderm, biopsy - Skin with acute and chronic inflammation. - No granulomas identified. J/henri 09/04/2017 Pavan Reyez M.D. (Electronic Signature) SPECIMEN SUBMITTED A: ANODERM BIOPSY CLINICAL DATA ANAL FISTULA, LMP: NA, R/O CROHN'S GROSS DESCRIPTION A. Received in formalin are three segments of irregular mane rubbery tissue aggregating to 2.0 x 0.8 x 0.5 cm. Specimens are bisected. Totally submitted in one cassette. Gross examination performed at [facility], [address] [place] [address] 09/01/2017 4:54:46 PM Date of Report: 09/04/2017 Date of Procedure: 09/01/2017 Date of Receipt: 09/01/2017 Submitted by: Earline Samson M.D. Location: [facility] Diagnostic interpretation performed at [place] [address]. Performed By: #### PATHS #### [employer] [address] [place] [address] [phone] ANES PREOP Observed: 09/01/2017 Status: COMPLETED Source: [place] 11:03 AM CLINIC OTHER CAMPUS REPOSITORY HNO ID: [id number] Author: Liborio Ornelas Service: Anesthesiology Author Type: [...] - Perirectal abscess 07/2017 - Sprain, sacroiliac [facility] PAST SURGICAL HISTORY Procedure Laterality [...] ringers infusion 50 mL/hr INTRAVENOUS CONTINUOUS Nerissa (Pediatric Immunologist) Jose Alberto Last Rate: 50 mL/hr at [...] September 01, 2017 TIME: 11:03 AM CSN: [id number] PT ED Observed: 09/01/2017 Status: COMPLETED Source: [place] 10:31 AM [facility] REPOSITORY HNO ID: [id number] Author: Gris (Rn) ROMAN Mai Service: Nursing Author Type: Registered Nurse Type: [...] Signed By: Gris Mai RN In Department: [facility] SURGERY HISTORY PHYSICAL Observed: 09/01/2017 Status: COMPLETED Source: [place] 10:28 AM [facility] REPOSITORY HNO ID: [id number] Author: Earline Samson Service: General Surgery Author [...] OPERATIVE NO Observed: 09/01/2017 Status: COMPLETED Source: [place] 12:00 AM [facility] REPOSITORY HNO ID: [id number] Author: Earline Samson Service: General Surgery Author Type: Physician Type: Operative Report Filed: 09/02/2017 7:35 AM Note Text: [facility]- Operative Report SARANYA MALAVE : 1990 AGE: 27 SEX: F ACCTNUM: [id number] [facility] [place] [facility] LOCATION: [facility] ATTENDING PHYSICIAN: Earline Samson M.D. DATE OF PROCEDURE: 09/01/2017 SURGEON: Earline Samson M.D. LINUX NETWORK SYSTEMS ADMINISTRATOR: NONE ANESTHESIA: Monitored anesthesia. PREOPERATIVE DIAGNOSIS(ES): Rwobuds-uf-hlt. POSTOPERATIVE DIAGNOSIS(ES): Frhthtf-qd-wxf. NAME OF OPERATION: Rectal exam under anesthesia [...] good condition. Earline Samson M.D. General Surgery KED:[id number] /[id number] NURSING PROG Observed: 08/29/2017 Status: COMPLETED Source: [place] 7:58 AM CLINIC OTHER CAMPUS REPOSITORY HNO ID: [id number] Author: Linda (Rn) ROMAN Rankin Service: (none) Author Type: Registered Nurse Type: Nursing Progress Note Filed: 08/29/2017 8:01 AM Note Text: PACC Nurse Progress Note ? History AND Physical: PACC Visit Date: NA Original HANDP Date: 07/22/17 with Nerissa Kwok (DRUG DISCOVERY INFORMATICS SPECIALIST) ED visit Date: N/A Outside HANDP Scanned [...] for your procedure at this surgery center: [facility]: [phone] -- [address] [facility] [place] [address]. Please read below carefully for your personalized [...] the night before your surgery. Pain Medications: Ardara Medications: Approved medications to take the morning of surgery with a sip of water: Zyrte If you start any new medications after today's visit, please contact the surgery center above. Important Reminders: - Candy, mints, gum and tobacco products are NOT permitted the morning of surgery. - Hearing aids, dentures and glasses may be worn the morning of surgery. - NO jewelry, body piercings, makeup, nail maori, hairpins or contacts are to be worn [...] Procedures: - YOU MUST HAVE A RESPONSIBLE MARKETING SUPPORT MANAGER TAKE YOU HOME. A POULTRY HUSBANDRY WORKER OR CENTRIFUGAL CASTING MACHINE OPERATOR CANNOT BE MADE A RESPONSIBLE MARKETING SUPPORT MANAGER. - We recommend that a responsible person [...] ? HOSP Observed: 08/15/2017 Status: COMPLETED Source: [place] 12:00 AM CLINIC OTHER CAMPUS REPOSITORY Patient:Saranya Malave MRN: <[id number]> Height:5' 4(1.626 m) Weight:161 lb (73.029 kg) [...] for the following basenames: K,HCT Progress Notes ([facility]): Linda Aguirre RN 08/20/2017 9:12 AM [...] MD message noted. Encounter closed. Progress Notes ([facility]): Linda Aguirre RN 08/13/2017 10:03 AM Signed Patient called, tearful with anxiety about surgery tomorrow and wonders if she could put it off for a couple of weeks Also has vacation planned for next Friday to [place]. States pain level is 2/[address] Samson's opinion. Please advise, patient would like call back. [phone] (home) [phone] (cell) Angel Lay MD 08/13/2017 10:56 AM [...] aware. No further questions at this time. message noted. BRIEF OP NOT Observed: 08/14/2017 Status: COMPLETED Source: [place] 3:19 PM [facility] REPOSITORY HNO ID: [id number] Author: Earline Samson Service: General Surgery Author Type: Physician Type: Brief Op Note Filed: 08/14/2017 3:20 PM Note Text: Surgery cancelled - patient would like to hold off on surgery until after her vacation. NURSING PROG Observed: 08/14/2017 Status: COMPLETED Source: [place] 2:52 PM [facility] REPOSITORY HNO ID: [id number] Author: Jennifer CeballosRn) Shayna RN Service: Nursing Author Type: Registered Nurse Type: Nursing Progress Note Filed: 08/14/2017 2:54 PM Note Text: Nursing Progress Note Patient Name: Saranya Malave Patient Location: OR Surgery/OR Surgery 1453 Pt states she does not want to have the surgery. Asking to talk with Dr Samson. RN explained Dr is in surgery now and that it will be fine to wait until after she speaks with Dr to start the IV. Call placed to OR room and Dr Samson and anesthesia informed of pt's request. Dr to talk with pt when done with present surgery. This note was completed by: Jennifer Corral RN PT ED Observed: 08/14/2017 Status: COMPLETED Source: [place] 2:34 PM [facility] REPOSITORY HNO ID: [id number] Author: Jennifer CeballosRn) Shayna, RN Service: Nursing Author Type: Registered Nurse [...] Signed By: Jennifer Corral RN In Department: [facility] SURGERY NURSING PROG Observed: 08/13/2017 Status: COMPLETED Source: [place] 8:09 AM [facility] OTHER CAMPUS REPOSITORY HNO ID: [id number] Author: Linda Rankin RN Service: (none) Author Type: Registered Nurse Type: Nursing Progress Note Filed: 08/13/2017 9:49 AM Note Text: PACC Nurse Progress Note History AND Physical: PACC Visit Date: NA Original HANDP Date: 07/22/17 with Nerissa CAVANAUGH) ED visit Date: N/A Outside HANDP Scanned [...] AM PROGRESS Observed: 08/12/2017 Status: COMPLETED Source: [place] 3:32 PM [facility] MAIN CAMPUS REPOSITORY HNO ID: [id number] Author: Nerissa Abrams Service: (none) Author Type: [...] Rx for Omnicef and Flagyl to [facility] in [place]. HISTORIES FAMILY HISTORY Problem Relation Age of [...] fevers GI: No nausea, vomiting, or diarrhea OFFICE RN: LMP August 05, 2017 PHYSICAL EXAM Temp [...] METRONIDAZOLE 500 MG TABLET Nerissa Abrams APRN.CNP CNOV Observed: 08/12/2017 Status: COMPLETED Source: [place] 2:30 PM [facility] MAIN [place] REPOSITORY Office Visit (MARIA GUADALUPE) SARANYA MALAVE ([id number]) 1990 F Date Time Provider Department 08/12/17 [...] Rx for Omnicef and Flagyl to [facility] in [place]. HISTORIES FAMILY HISTORY Problem Relation Age of [...] fevers GI: No nausea, vomiting, or diarrhea OFFICE RN: LMP August 05, 2017 PHYSICAL EXAM Temp [...] - METRONIDAZOLE 500 MG TABLET Nerissa Abrams APRN.UNIQUE Referring Provider: SELF [[id number]] Allergies As of Date: 08/12/2017 (No Known Allergies) Date Reviewed: 08/12/2017 Reviewed by: Nerissa Abrams - Fully Assessed Reason for Visit: Recurrent [...] 08/13/17 HOSP Observed: 08/12/2017 Status: COMPLETED Source: [place] 12:00 AM [facility] OTHER CAMPUS REPOSITORY Patient:Saranya Malave MRN: <[id number]> Height:5' 4(1.626 m) Weight:161 lb 13.1 oz [...] for the following basenames: K,HCT Progress Notes ([facility]): Linda Aguirre RN 08/13/2017 10:03 AM Signed Patient called, tearful with anxiety about surgery tomorrow and wonders if she could put it off for a couple of weeks Also has vacation planned for next Friday to [place]. States pain level is 2/[address] Samson's opinion. Please advise, patient would like call back. [phone] (home) [phone] (cell) Angel Lay MD 08/13/2017 10:56 AM [...] this time. MD message noted. Progress Notes ([facility]): Nerissa Abrams APRN.DRUG DISCOVERY INFORMATICS SPECIALIST 08/13/2017 4:18 PM Signed ESTABLISHED PATIENT Saranya [...] is applied, she is very tender. Dr. Samosn in for exam and suggests pt go to the OR. Rx for Omnicef and Flagyl to [facility] in [place]. HISTORIES FAMILY HISTORY Problem Relation Age of [...] fevers GI: No nausea, vomiting, or diarrhea OFFICE RN: LMP August 05, 2017 PHYSICAL EXAM Temp [...] - METRONIDAZOLE 500 MG TABLET Nerissa Abrams APRN.UNIQUE PROGRESS Observed: 07/22/2017 Status: COMPLETED Source: [place] 4:28 PM [facility] [place] REPOSITORY HNO ID: [id number] Author: Nerissa (Unique) Jose Alberto Service: (none) [...] fevers CNOV Observed: 07/22/2017 Status: COMPLETED Source: [place] 11:00 AM [facility] REPOSITORY Office Visit (GENSME) SARANYA MALAVE ([id number]) 1990 F Date Time Provider Department 07/22/17 11:00 AM NERISSA ABRAMS (UNIQUE) MARIA GUADALUPE During your visit today, we recorded the following information about you: Temperature 98 degrees Nerissa Abrams APRN.CNP 07/22/2017 4:35 PM Signed ESTABLISHED PATIENT Saranya [...] drainage or fevers Referring Provider: NERISSA ABRAMS ([facility]) [[id number]] Allergies As of Date: 07/22/2017 (No Known Allergies) Date Reviewed: 07/22/2017 Reviewed by: Nerissa ([facility]) Jose Alberto - Fully Assessed Reason [...] CASE MANAGEM Observed: 07/17/2017 Status: COMPLETED Source: [place] 10:16 AM [facility] REPOSITORY HNO ID: [id number] Author: Nerissa Watkins RN Service: Case Management Author Type: Registered Nurse Type: Care Mgt Progress Note Filed: 07/17/2017 10:20 AM Note Text: CARE MANAGEMENT DISCHARGE NOTE SERVICE DATE: 07/17/2017 SERVICE TIME: 10:16 AM LOS: 0 days Admission Date: 07/16/2017 DISCHARGE ARRANGEMENT (list agency and phone number) Home Provider: na Phone: na CAREGIVER ASSESSMENT: Caregiver is ready, [...] 17, 2017 TIME: 10:16 AM PAGER/CONTACT #: [phone] CASE MGT INIT Observed: 07/17/2017 Status: COMPLETED Source: [facility] 10:00 AM [facility] REPOSITORY HNO ID: [id number] Author: Nerissa Watkins RN Service: Case Management Author Type: Registered Nurse Type: Care Mgt Initial Assessment Filed: 07/17/2017 10:08 AM Note Text: CARE MANAGEMENT: ASSESSMENT AND DISCHARGE PLAN SERVICE DATE: 07/17/2017 SERVICE TIME: 10:00 AM PRIMARY CARE PHYSICIAN: Zafar Dye MD (confirmed with patient) ADMISSION STATUS: Observation Needs Prior to Discharge: None MEDICAL: Patient/President Stated Goals: To have reduction in pain [...] None Has the Patient Been in a Nursing Home Facility in the Past 30 days? 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 Primary Contact: Extended Emergency Contact Information Primary [...] 0 I feel financially burdened by my rsv-iu-bkwdpq expenses for my prescription medication: Disagree completely [...] 17, 2017 TIME: 10:00 AM PAGER/CONTACT #: [phone] STE[place] Observed: 07/17/2017 Status: COMPLETED Source: [place] 9:36 AM CLINIC OTHER CAMPUS REPOSITORY O ID: [id number] Author: Nerissa Abrams Service: General Surgery Author [...] 3 x daily You should use an vcdl-gek-ytyhmfy stool softener (Docusate sodium) and/or a fiber [...] Patient/Parents to call for appointment?: Yes Earline Samson [phone] [address] PCP Requested Referral Additional Provider to Provider Information: No notes on file FOLLOW-UP APPOINTMENTS ALREADY SCHEDULED WITH A [facility] PROVIDER Future Appointments Date Time Provider Department Center 07/22/2017 11:00 AM Nerissa Abrams [facility] DISCHARGE MEDICATION: Current Discharge Medication List START [...] NURSING PROG Observed: 07/17/2017 Status: COMPLETED Source: [place] 8:10 AM [facility] REPOSITORY HNO ID: [id number] Author: Latosha CeballosRn) ROMAN Humphries Service: Nursing Author Type: Registered Nurse Type: Nursing Progress Note Filed: 07/17/2017 10:40 AM Note Text: Nursing Progress Note Patient Name: Saranya Malave Patient [place] [facility] [place]RO-3W-9560-2 Daily Note:0810 - Resting in bed watching [...] NURSING PROG Observed: 07/17/2017 Status: COMPLETED Source: [place] 12:19 AM [facility] REPOSITORY HNO ID: [id number] Author: Dianna CeballosRnJennifer Melgoza RN Service: (none) Author Type: Registered Nurse Type: Nursing Progress Note Filed: 07/17/2017 5:57 AM Note Text: Nursing Progress Note Patient Name: Saranya Malave Patient Location: [facility] [place]/VV-2T-2457- Daily Note: 2300 assumed care of pt [...] NURSING PROG Observed: 07/16/2017 Status: COMPLETED Source: [place] 10:52 PM [facility] REPOSITORY HNO ID: [id number] Author: Tasneem CeballosRn) ROMAN Bryant Service: (none) Author Type: Registered Nurse Type: Nursing Progress Note Filed: 07/16/2017 10:57 PM Note Text: Nursing Progress Note Patient Name: Saranya Malave Patient Location: [id number]/LG-4N-0327-2 Daily Note: 1915: Assumed care of pt. OPERATING ROOM AIDE here to take patient to OR. 5: Pt returned to room from OR. Denies pain at this time. Vee pad, ice pack held in place with mesh panties. Small amt serosanginous IVF infusing. Pt denies further needs at this time. Family at bedside. This note was completed by: Tasneem Bryant RN BRIEF OP NOT Observed: 07/16/2017 Status: COMPLETED Source: [place] 8:42 PM [facility] REPOSITORY HNO ID: [id number] Author: Earline Samson Service: General Surgery Author Type: Physician Type: Brief Op Note Filed: 07/16/2017 8:45 PM Note Text: BRIEF OPERATIVE / PROCEDURE NOTE LOG ID: [id number] SURGERY/PROCEDURE DATE: 07/16/2017 INCISION/PROCEDURE START TIME: 8:12 PM INCISION CLOSE/PROCEDURE END TIME: 8:25 PM SURGEON(S)/PROCEDURALIST(S) AND LINUX NETWORK SYSTEMS ADMINISTRATOR(S): Surgeon(s) and Role: * Earline Samson - Primary No Additional Staff SURGERY/PROCEDURE(S): IANDD perirectal abscess ANESTHESIA: Monitored Anesthesia Care FINDINGS: see report ESTIMATED BLOOD LOSS: min SPECIMENS: culture COMPLICATIONS: None PRE-OP/PRE-PROCEDURE DIAGNOSIS: perirectal abscess POST-OP/POST-PROCEDURE DIAGNOSIS: same # [id number] SIGNATURE: Earline Samson MD PATIENT NAME: Saranya Malave DATE: July 16, 2017 TIME: 8:42 PM PAGER/CONTACT #: ANES POST Observed: 07/16/2017 Status: COMPLETED Source: [place] 8:37 PM CLINIC OTHER CAMPUS REPOSITORY HNO ID: [id number] Author: Steve Kay MD Service: Anesthesiology Author Type: Anesthesiologist Type: Anesthesia PostOp Filed: 07/16/2017 8:39 PM Note Text: POST ANESTHESIA EVALUATION NOTE SERVICE DATE: 07/16/2017 SERVICE TIME: 2036 : 1990 Vitals: 07/16/171657 Temp: 37.1 ?C (98.8 ?F) 07/16/171657 BP: 138/78 07/16/178 07/16/171949 Pulse: 114 103 07/16/178 07/16/171949 Resp: 18 18 07/16/17165707/16/171949 SpO2: 96% 98% [...] #: WOUND Observed: 07/16/2017 Status: F Source: [place] CULTURE/STAIN 8:36 PM [facility] REPOSITORY Sp. Request/Comment: - Gel transport swab. Smear Result - Rare Gram negative bacilli --> ABNORMAL ALERT Rare --> ABNORMAL ALERT Gram positive cocci --> ABNORMAL ALERT Moderate Polymorphonuclear leukocytes Culture Result - No growth 5 days The discrepancy between culture result and gram stain result may be due to non-viability of the organism(s). Performed By: #### WCUL #### [place] [phone] Observed: 07/16/2017 Status: F Source: [place] ANAEROBE CULTURE 8:36 PM [facility] REPOSITORY Sp. Request/Comment: - Gel transport swab. [...] ABNORMAL ALERT Performed By: #### ANACUL #### [place] [address] Observed: 07/16/2017 Status: F Source: [place] FUNGAL CULTURE 8:36 PM [facility] REPOSITORY Sp. Request/Comment: - Gel transport swab. Culture Result - No Fungus isolated after 33 days Performed By: #### FCUL #### [place] [address] ANES PREOP Observed: 07/16/2017 Status: COMPLETED Source: [place] 7:41 PM [facility] REPOSITORY HNO ID: [id number] Author: Steve Kay MD Service: Anesthesiology Author [...] 3-5 mL INTRAVENOUS q 12 H Earline Samson 5 mL at 07/16/17 1800 [MAR Hold due to Transfer] lactated ringers infusion 100 mL/hr INTRAVENOUS CONTINUOUS Earline E Samson Last Rate: 100 mL/hr at 07/16/17 1732 100 mL/hr at 07/16/17 173 [MAR Hold due to Transfer] morphine 1-2 [...] 500 mg INTRAVENOUS q 8 H Earline E Samson 500 mg at 07/16/17 173 midazolam [...] July 16, 2017 TIME: 7:41 PM CSN: [id number] HISTORY PHYSICAL Observed: 07/16/2017 Status: COMPLETED Source: [place] 4:46 PM [facility] REPOSITORY HNO ID: [id number] Author: Earline Samson Service: General Surgery Author [...] NURSING PROG Observed: 07/16/2017 Status: COMPLETED Source: [place] 4:45 PM [facility] REPOSITORY HNO ID: [id number] Author: Latosha CeballosRn) ROMAN Broussard Service: Nursing Author Type: Registered Nurse Type: Nursing Progress Note Filed: 07/16/2017 6:39 PM Note Text: Nursing Progress Note Patient Name: Saranya Malave Patient Location: [facility]/[id number] Daily Note:1645 - Pt admitted to the in stable condition. 1700 - Pt is AANDO x 3, pleasant and cooperative with care. Assessment and admission completed and noted; see epic. Pt c/o 7/[address] rectal area[address] Dr[address] Samson on [...] ANES PREOP Observed: 07/16/2017 Status: COMPLETED Source: [place] 4:19 PM CLINIC OTHER CAMPUS REPOSITORY O ID: [id number] Author: Steve Kay MD Service: Anesthesiology Author [...] July 16, 2017 TIME: 4:19 PM CSN: [id number] PROGRESS Observed: 07/16/2017 Status: COMPLETED Source: [place] 3:23 PM [facility] [place] REPOSITORY [facility] ID: [id number] Author: Nerissa Abrams Service: (none) Author Type: [...] exam under anesthesia. He spoke with surgeon permastone applicator - Dr. Samson. Scheduled for later today. [...] No history of dysuria, frequency or incontinence OFFICE RN: LMP- just finished MUSCULOSKELETAL: Negative for joint [...] ONOFRE MORFIN Observed: 07/16/2017 Status: COMPLETED Source: [place] 1:00 PM [facility] REPOSITORY Office Visit (GENE) SARANYA MALAVE ([id number]) 1990 F Date Time Provider Department 07/16/17 1:00 PM NERISSA ABRAMS ([facility]) Kari During your visit today, we recorded the following information about you: Nerissa Abrams APRN.[facility] 07/16/2017 5:23 PM Signed ESTABLISHED PATIENT Saranya [...] exam under anesthesia. He spoke with surgeon permastone applicator - Dr. Samson. Scheduled for later today. [...] No history of dysuria, frequency or incontinence OFFICE RN: LMP- just finished MUSCULOSKELETAL: Negative for joint [...] today for REUA Referring Provider: NERISSA ABRAMS ([facility]) [[id number]] Allergies As of Date: 07/16/2017 (No Known Allergies) Date Reviewed: 07/16/2017 Reviewed by: Latosha (Rn) ROMAN Broussard - Fully Assessed Reason for [...] 07/16/17 HOSP Observed: 07/16/2017 Status: COMPLETED Source: [place] 12:00 AM CLINIC OTHER CAMPUS REPOSITORY Patient:Saranya Malave MRN: <[id number]> Height:5' 4(1.626 m) Weight:161 lb 13.1 oz [...] 40.8 % 07/13/2017 46.0 36.0 Progress Notes ([facility]): Nerissa Abrams APRN.DRUG DISCOVERY INFORMATICS SPECIALIST 07/16/2017 5:23 PM Signed ESTABLISHED PATIENT Saranya [...] exam under anesthesia. He spoke with surgeon permastone applicator - Dr. Samson. Scheduled for later today. [...] No history of dysuria, frequency or incontinence OFFICE RN: LMP- just finished MUSCULOSKELETAL: Negative for joint [...] to OR today for REUA Progress Notes ([facility]): Joanie Carter Psr 07/16/2017 9:28 AM Signed Patient calling to speak with you. She says you told her to call today. She is asking that you call her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
== END ==
PROVIDERS: Visit Provider Obstetrics & Gynecology
DX: R19.7 Diarrhea, unspecified (principal)
CPT/HCPCS: 87493

== ENCOUNTER → 2018-04-20 10:00 | Outpatient (CLI) | payer MEDICAID, SELFPAY | PROVIDERS: Visit Provider Obstetrics & Gynecology | DX: Z36.85 Encounter for antenatal screening for Streptococcus B (principal) | CPT/HCPCS: 87081 ==

== ENCOUNTER 2018-05-05 02:40 | Inpatient (IN) | payer MEDICAID, SELFPAY ==
[2018-05-05 02:32] VITALS: BMI 37.1
[2018-05-05 02:39] LABS: ROM Internal Control Test YES-OK TO RESULT pt. (Internal QC)
[2018-05-05 02:40] LABS: ROM Patient Test POSITIVE (Negative); Record Kit Lot#, ROM+ J7836
[2018-05-05 04:15] LABS: Hematocrit 36.2 % (37-47); Mean Corp Hgb Conc 33.1 g/gl (32-36); Mean Corpuscular Hgb 30.3 pg (27.0-32.0); Mean Corpuscular Volume 91.4 fL (81-99); Mean Platelet Vol. 11.2 fl (6.2-12.0); Platelet Count 259 K/mm3 (150-450); RBC Distribution Width CV 14.5 % (11.6-14.6); RBC Distribution Width SD 48.1 fl (35.1-43.9); Red Blood Count 3.96 M/mm3 (4.2-5.4); White Blood Count 14.3 K/mm3 (4.4-11.0)
[2018-05-05 04:29] LABS: Scan Indicated on CBC? Y/N NO
[2018-05-05] MEDS: Ondansetron 4 MG/2 ML Vial IV (05:09)
[2018-05-05] MEDS: 0.9% Saline Lock 10 ML Syringe IV (05:09)
[2018-05-05] MEDS: Lactated Ringers 1,000 ML 50 ML IV ×4 (05:50→14:37)
[2018-05-05] MEDS: fentaNYL-bupivacaine (epidural) 100 ML BAG EPIDURAL ×2 (06:45→10:56)
--- NOTE | 2018-05-05 07:45 | PCM.PN.BLA ---
Progress Note LABOR PROGRESS NOTE Comfortable w/ epidural and has been dosing off and on AVSS EFM 130-140s avg variability Accels. reassuring Us q 2-3 mins poor pickup ? CX: 4-5/100/-2 LOP minimal molding noted A/P: 38 6/7 wk SROM Spont labor. Epidural placed. Watch progress, descent. Encourage position changes. Pitocin prn if labor inadequate.
--- NOTE | 2018-05-05 12:34 | PCM.PN.BLA ---
Progress Note LABOR PROGRESS NOTE 38 6/7 wk SROM Spont labor Comfortable w/ epidural. AVSS IFM 130-140s avg variability. Much artifact on scalp lead. 8 min decel to 90s with pushing. O2 on position changes, fluid bolus given. UCs q 2-5 mins Irregular but adequate enough for complete dilation. CX: complete narrow pelvis. LOP and caput noted. A/P: 38 6/7 wk SROM spont labor. Complete but vtx not centered in pelvis and LOP Position changes to hands and knees with peanut ball. Watch rotation, further descent.
[2018-05-05] MEDS: Oxytocin 30 units/NS 500 ml 30 UNITS/500 ML IV.SOLN IV (17:17)
[2018-05-05] MEDS: Oxytocin 30 units/NS 500 ml 30 UNITS/500 ML IV.SOLN 334 UNITS IV (17:41)
--- NOTE | 2018-05-05 17:45 | PCM.OB.VAG ---
Vaginal Delivery Maternal Presentation: Active Labor, Spontaneous Rupture of Membranes 38 6/7 wk labor SROM Amniotic Membrane Rupture Type: Spontaneous at home Amniotic Fluid Description: Clear Final DOUGLAS: 05/13/18 Gestational age: 38 Weeks and 6 Days Date of Procedure: 05/05/18 Pre-Operative Diagnosis: 38 6/7 wk labor Post-Operative Diagnosis: same Surgery/ Procedure Performed: Vacuum Assisted Vaginal Delivery Type of Anesthesia: Epidural Description of Procedure: Vacuum assisted vaginal delivery at +1 station , complete dilatation -- due to maternal fatigue. Complete and pushing from 12:30 pm to 5:30 pm Carbone catheter in place, pink tinged urine noted with pushing . Epidural catheter in place. Single pull with suction in green zone on Kiwi vacuum extractor, corresponding with 3 maternal pushes resulted in delivery of vtx. FLORENCE. Mild shoulder dystocia reduced with Genny's maneuver, gentle lateral traction. Suprapubic pressure, and forward rotation of the anterior shoulder. OP and nares bulb suctioned to maternal abdomen then with spont vigorous cry. Delayed cord clamping employed. Cord clamped times two and cut End stage meconium noted. PP exam: 1st deg laceration at L anterior labia. Abrasion at posterior introitus, but no lacerations requiring repair Placenta delivery by spont expulsion and expression. 3V cord, normal appearing and intact with trailing membranes EBL 300 cc Pt and infant to tolerated delivery well. to recovery in stable condition Ray Fer count correct times two. Presentation: Vertex, FLORENCE Placental Delivery Description: Spontaneous, Expressed Placenta Disposition: [facility] Cord Vessel Description: 3 Vessels Nuchal Cord Compression: Without compression Cord Entanglement: None - around body and arms loosely Drain: Carbone to straight drain Estimated Blood Loss: 300 Infant A gender: Female (1 minute): 8 (5 minute): 9 Episiotomy Description: None Laceration: 1st degree - L anterior labial laceration, hemostatic, not repaired Medications given after delivery: IV Pitocin Complications: None
[2018-05-05] MEDS: Oxytocin 30 units/NS 500 ml 30 UNITS/500 ML IV.SOLN 167 UNITS IV (18:09)
[2018-05-05 20:00] VITALS: BP 129/62; PULSE 90; RESP 18; TEMP 37.4
--- NOTE | 2018-05-05 20:06 | DCINST_ITS ---
Discharge Diet: No Restrictions Discharge Activity: May Shower, May Take a Tub Bath Return to work on:: 06/15/18 May resume sexual activity in: 4-6 weeks Additional Activity Instructions:: Nothing in the vagina for 4-6 weeks. You may return to work/school in 6 weeks. Additional Instructions: If you experience any of the following, contact your healthcare provider. * Bleeding that soaks a pad every hour for 2 hours * Fever 100.4 or higher * Unrelieved abdominal pain * Problems urinating (including inability to urinate or burning while urinating). * Visual changes * Severe headache * Flu-like symptoms * Pain or redness in one of both of your breasts * Pain, warmth, tenderness or swelling in your legs, especially the calf area * Frequent nausea and vomiting * Symptoms of depression or anxiety If you experience any of the following, call 911 or go to the nearest Emergency Room. * Chest pain * Problems breathing * Seizure activity * Partial or complete paralysis of a body part, slurred speech, weakness or drooping of the face, or a sudden inability to walk or hold your balance Allergies/Adverse Reactions: Allergies No Known Allergies Allergy (Verified 05/05/18 02:33) Medications to take at Discharge Pnv No.95/Ferrous Fum/Folic AC [ Formula] 1 each PO DAILY 05/05/18 Vancomcyin 125mg/5mL PO Liquid [Vancomycin 125mg/5mL Susp] 125 mg PO QODAY 05/05/18 Please Follow Up With: Kiki Victoria MD - [phone] When: Call to make an appointment with your doctor in 6 weeks. FOLLOW up in two weeks for short follow up appointment. Primary Care Physician: Care Physician,No Primary [Primary Care Provider] - Test Results: Test results from this visit will be discussed in further detail at your follow- up appointment, if applicable.
[2018-05-06] VITALS: BP 109/58; PULSE 88; RESP 17; TEMP 37.3
[2018-05-06 03:52] VITALS: BP 115/62; PULSE 89; RESP 17; TEMP 36.7
[2018-05-06] MEDS: Ibuprofen 600 MG Tablet PO ×3 (03:54→22:06)
--- NOTE | 2018-05-06 08:16 | PCM.PN.OB ---
Subjective: PPD#1 Doing well. No concerns voiced. Baby 8# 1 oz. Nursing. Has to filler picker her vancomycin liquid to take for recurrent bouts of C Diff. (spouse will filler picker today at [facility]) States no diarrhea. DECLINES LARC. States possible bilateral tubal ligation later and has signed federal consent for tubal. - Physical Exam General: Alert, Oriented x3, Cooperative HEENT: Atraumatic Neck: Supple Abdomen: Soft - Fundus firm NT at approx 1-2 cm inferior to umbilicus Psych/Mental Status: Normal Affect Vital Signs Temp Pulse Resp BP 98.0 F 89 17 115/62 05/06/18 03:52 05/06/18 03:52 05/06/18 03:52 05/06/18 03:52 Weight: 98.2 kg Body Mass Index (BMI) 37.1 Intake and Output for Last 24 Hours 05/04/18 05/05/18 05/06/18 23:59 23:59 23:59 Intake Total 3912 / 3912 Output Total 950 / 950 Balance 2962 / 2962 Medical Necessity - Tobacco Use Smoking Status: Current some day smoker Assessment/Plan PPD#1 Stable Continue routine pp care Resume Vancomycin liquid prolonged course for her h/o C Diff. and to complete 12 wk therapy as planned.
[2018-05-06 08:20] VITALS: BP 125/79; PULSE 86; RESP 18; TEMP 36.5; O2SAT 100
--- NOTE | 2018-05-06 08:20 | PN.OBGYN_ITS ---
Subjective: PPD#1 Doing well. No concerns voiced. Baby 8# 1 oz. Nursing. Has to fruit or nut picker her vancomycin liquid to take for recurrent bouts of C Diff. (spouse will fruit or nut picker today at [facility]) States no diarrhea. DECLINES LARC. States possible bilateral tubal ligation later and has signed federal consent for tubal. - Physical Exam General: Alert, Oriented x3, Cooperative HEENT: Atraumatic Neck: Supple Abdomen: Soft - Fundus firm NT at approx 1-2 cm inferior to umbilicus Psych/Mental Status: Normal Affect Vital Signs Temp Pulse Resp BP 98.0 F 89 17 115/62 05/06/18 03:52 05/06/18 03:52 05/06/18 03:52 05/06/18 03:52 Weight: 98.2 kg Body Mass Index (BMI) 37.1 Intake and Output for Last 24 Hours 05/04/18 05/05/18 05/06/18 23:59 23:59 23:59 Intake Total 3912 / 3912 Output Total 950 / 950 Balance 2962 / 2962 Medical Necessity - Tobacco Use Smoking Status: Current some day smoker Assessment/Plan PPD#1 Stable Continue routine pp care Resume Vancomycin liquid prolonged course for her h/o C Diff. and to complete 12 wk therapy as planned.
[2018-05-06] MEDS: Acetaminophen 500 MG Tablet 1000 MG PO (08:59)
--- NOTE | 2018-05-06 10:12 | NURSING ---
unrepaired first degree left interior labial site unremarkable on assessment
[2018-05-06 11:42] VITALS: BP 114/66; PULSE 79; RESP 18; TEMP 37; O2SAT 97
[2018-05-06] MEDS: Senna/Docusate Sodium 1 Tablet PO (13:53)
[2018-05-06 16:00] VITALS: BP 115/69; PULSE 80; RESP 18; TEMP 37.2; O2SAT 98
[2018-05-06 20:33] VITALS: BP 122/76; PULSE 77; RESP 16; TEMP 37.3; O2SAT 97
[2018-05-07 01:21] VITALS: BP 110/70; PULSE 69; RESP 15; TEMP 36.6; O2SAT 98
[2018-05-07 08:00] VITALS: BP 109/73; PULSE 71; RESP 16; TEMP 36.4; O2SAT 100
[2018-05-07] MEDS: Ibuprofen 600 MG Tablet PO (08:02)
--- NOTE | 2018-05-07 09:16 | PCM.PN.OB ---
Subjective: Patient without complaints. Bottle feeding going well. Minimal vaginal bleeding. - Physical Exam Vital Signs Temp Pulse Resp BP Pulse Ox 97.5 F L 71 16 109/73 100 05/07/18 08:00 05/07/18 08:00 05/07/18 08:00 05/07/18 08:00 05/07/18 08:00 Oxygen Delivery Method Room Air Weight: 216 lb 7.903 oz Body Mass Index (BMI) 37.1 Intake and Output for Last 24 Hours 05/05/18 05/06/18 05/07/18 23:59 23:59 23:59 Intake Total 3912 / 3912 Output Total 950 / 950 Balance 2962 / 2962 Medical Necessity - Tobacco Use Smoking Status: Current some day smoker Assessment/Plan Doing well day #2 status post routine vaginal delivery. Will discharge to home with routine instructions.
[2018-05-07] MEDS: Acetaminophen 500 MG Tablet 1000 MG PO (11:19)
== END 2018-05-07 11:30 | disposition home or self-care (01) | DRG 560 ==
LOC: WPOUT 02:44
PROVIDERS: Admitting Provider Obstetrics & Gynecology; Referring Provider Obstetrics & Gynecology; Visit Provider Obstetrics & Gynecology
DX: O66.0 Obstructed labor due to shoulder dystocia (principal); O76 Abnormality in fetal heart rate and rhythm complicating labor and delivery; O70.0 First degree perineal laceration during delivery; O69.81X0 Labor and delivery complicated by cord around neck, without compression, not applicable or unspecified; O99.334 Smoking (tobacco) complicating childbirth; Z3A.38 38 weeks gestation of pregnancy; Z37.0 Single live birth; A04.72 Enterocolitis due to Clostridium difficile, not specified as recurrent; O98.813 Other maternal infectious and parasitic diseases complicating pregnancy, third trimester; Z79.2 Long term (current) use of antibiotics
CPT/HCPCS: 59025; 59050; 84112; 85027; 86850; 86900; 99218; J7120; A4216; G0378; J2405

== ENCOUNTER → 2018-05-15 09:30 | Outpatient (CLI) | payer MEDICAID, SELFPAY ==
[2018-05-05 02:32] VITALS: BMI 37.1
== END ==
PROVIDERS: Visit Provider Obstetrics & Gynecology
DX: R19.7 Diarrhea, unspecified (principal)
CPT/HCPCS: 87177; 87209; 87493; 87506

== ENCOUNTER 2018-05-16 19:18 | Observation (INO) | payer MEDICAID, SELFPAY ==
[2018-05-16 19:19] VITALS: BP 135/92; PULSE 104; RESP 16; TEMP 36.7; O2SAT 98; BMI 31.8
[2018-05-16] MEDS: 0.9% Normal Saline 1,000 ML 1000 ML IV (19:46)
[2018-05-16] MEDS: Morphine 4 MG/ML Syringe IV (19:54)
[2018-05-16] MEDS: Ondansetron 4 MG/2 ML Vial IV (19:54)
[2018-05-16 20:06] VITALS: BP 130/80; PULSE 72; RESP 18; TEMP 36.7; O2SAT 98
[2018-05-16 20:10] LABS: Bacteria 0 SEEN /hpf (None Seen); Mucous, Urine 0 SEEN /hpf (<or=2+)
[2018-05-16 20:12] LABS: Absolute Lymphocyte Count 2.25 X10^3/ul (0.83-4.51); Absolute Neutrophil Count 11.4 X10^3/uL (2.0-7.7); Basophil# 0.03 X10^3/uL; Basophil% 0.2 % (0-1); Hematocrit 41.4 % (37-47); Hemoglobin 13.4 g/dl (12.0-15.0); Lymphocyte # 2.25 X10^3/ul (4.0); Lymphocyte % 15.1 % (19-41); Mean Corp Hgb Conc 32.4 g/gl (32-36); Mean Corpuscular Hgb 29.5 pg (27.0-32.0); Mean Platelet Vol. 9.6 fl (6.2-12.0); Monocyte# 1.21 X10^3/uL; Monocyte% 8.1 % (0-10); Neutrophil # 11.43 X10^3/uL (2.7-7.7); Neutrophil % 76.4 % (47-70); Platelet Count 412 K/mm3 (150-450); RBC Distribution Width CV 14.1 % (11.6-14.6); RBC Distribution Width SD 46.6 fl (35.1-43.9); Red Blood Count 4.55 M/mm3 (4.2-5.4)
[2018-05-16 20:15] LABS: Color, Urine Yellow (Yellow); Glucose, Dipstick Normal (Normal); Ketone-Dipstick 5 mg/dl (Negative); Leukocyte Esterase-Dipstick 500 /ul (Negative); Nitrite-Dipstick Negative (Negative); Occult Blood-Urine 250 /ul (Negative); Protein-Dipstick 30 mg/dl (Negative); Urine Bilirubin Dipstick Negative (Negative); Urine Clarity Cloudy (Clear); Urine Urobilinogen Normal (Normal); Urine pH 6.5 (5.0 - 8.0)
[2018-05-16 20:17] LABS: POSITIVE COUNT NO; POSITIVE DIFFERENTIAL NO; POSITIVE MORPHOLOGY NO
[2018-05-16 20:19] LABS: Red Blood Cells-Urine 5-10 SEEN /hpf (0-5); White Blood Cells 25-50 SEEN /hpf (0-5)
[2018-05-16 20:20] LABS: Squamous Epithelial Cells - UA 0-5 SEEN /hpf (5-10)
[2018-05-16 20:27] LABS: BUN 12 mg/dL (7-18); Creatinine, Serum 0.72 mg/dL (0.55-1.02); Glucose 91 mg/dL (74-106)
[2018-05-16 20:28] LABS: Anion Gap 7 (5-15); BUN/Creat Ratio 16.7 RATIO (10-20); Calcium,Total 8.4 mg/dL (8.5-10.1); Chloride 109 mmol/L (98-107); EST Glomerular Filtration Rate 102 mL/min (>60); Est Glom Filt Rate - Afr Amer 123 mL/min (>60); Estimated Creatinine Clearance 100.45 ml/min; Potassium 4.3 mmol/L (3.5-5.1); Sodium Level 140 mmol/L (136-145)
[2018-05-16 20:40] LABS: Lactic Acid 0.6 mmol/L (0.4-2.0)
--- NOTE | 2018-05-16 21:15 | ED.VISSUMM ---
- ER Visit Summary Date of Service: 05/16/18 Chief Complaint: [Abdominal pain] History of Present Illness: The patient is a 27 F [presents the emergency department complaint of abdominal pain for approximately 1 week. Patient delivered a baby about 2 weeks ago. Patient had been on vancomycin for history of C. difficile colitis. Apparently insurance stopped covering her vancomycin and she is been without it for the last 2 weeks. Patient had a stool sample tested yesterday was positive for C. difficile. Patient has a prescription for vancomycin at the pharmacy however they were told it would cost $5000. Patient was advised to come to the emergency department. Patient's been having some significant diffuse abdominal discomfort and intermittent blood in her stool. Patient's been having diarrhea symptoms. She denies fevers. She has some urinary frequency.] Physical Examination: [HEENT-PERRLA, EOMI. Cranial nerves II through XII grossly intact. TMs clear. Mucous membranes moist. No adenopathy. Cardiovascular-regular rate and rhythm without murmur or ectopy Lungs-clear to auscultation, chest wall stable without crepitus or subcu emphysema Abdomen-normoactive bowel sounds, soft. Patient has tenderness palpation diffusely. There is no rebound, rigidity, or peritoneal signs. Extremities-intact ?4, normal range of motion, normal pulses, atraumatic] Test Results: [CBC with differential obtained showed an elevated white count of 15,000, hemoglobin 13, hematocrit 41, platelets 412. Chemistries unremarkable. Lactate was normal 0.6. Urinalysis was positive for 500 leukocyte esterase and 25-50 WBCs. Urine culture was sent.] Emergency Department Course and Treatment: [Patient was started on vancomycin and given Rocephin 1 g IV.] Treatment Plan: [Admit] Disposition: [Admit] Impression: [Abdominal pain C. difficile colitis UTI] This note was generated with [employer] Nood[employer] software. It may contain incorrect words, spelling, and punctuation that were not noted in review of the chart prior to signing ED Disposition - Plan for ED Patient: Referrals: Kiki iVctoria MD [Primary Care Provider] -
--- NOTE | 2018-05-16 21:24 | HP.PCM_ITS ---
Problem List (1) Clostridium difficile colitis Status: Acute (2) Obesity (BMI 30.0-34.9) Status: Chronic (3) Normal vaginal delivery Status: Chronic (4) Hx of Clostridium difficile infection Status: Chronic (5) Tobacco use Status: Chronic History of Present Illness Date of Admission: 05/16/18 Chief Complaint: Abdominal pain, cramping, diarrhea The patient is a 27 y/o F w/ PMHx: History of prior clostridium difficile infection x 2 following prior fistulotomy in the perirectal region noted to have been on Flagyl and oral ciprofloxacin for 2 months duration with onset initial episode following, Recent 05/05/18 with history of resolution of most recent episode in March having been on pulse dose oral vancomycin continued through patient delivery prescribed per her report per Dr. Victoria with attempt to refill her oral vancomycin approximately 1 week prior to current presentation with insurance declining at that time and severely bit of cost with failure to be able to take with onset of severe diarrhea, abdominal cramping, anorexia, nausea following with at least 20 episodes of diarrhea per day initially although lessened currently secondary to minimization of oral intake prompting current ED presentation. Patient notes that she is been very careful with her baby and unfortunately secondary to this history has not been breast-feeding. She notes using a separate bathroom in the house. Workup in the ED included T 98, heart rate 104 initially with repeat 72 following hydration, BP 135/92 with repeat 130/80, respiratory rate 16, 98% on room air, CBC with WBC 15, hemoglobin 13.4, platelet 412 with left shift, BMP remarkable for chloride 109, lactic acid 0.6, urinalysis with specific gravity 1.02, protein 30, ketone 5, occult blood 250, negative nitrite, leukocyte esterase 500, RBC 5-10, WBC 25-50 however urine bacteria 0, squamous epithelial cells 0-5, urine culture pending per ED. From review of records 05/15/18 still enteric pathogen negative except noted positive toxigenic C. difficile DNA. Past Medical History Past Medical History (Chronic Problems): Chronic Problems Obesity (BMI 30.0-34.9) (Chronic) Normal vaginal delivery (Chronic) Hx of Clostridium difficile infection (Chronic) Tobacco use (Chronic) Allergies No Known Allergies Allergy (Verified 05/05/18 02:33) Home Medications: Ambulatory Orders Medication Instructions Recorded NK 05/16/18 Surgical History: - - History of perirectal region fistulotomy with I&D of perirectal abscess. Psychiatric History: No pertinent psych hx FINANCIAL ADVISER History: - - Recent vaginal delivery with lessening lochia. Lives: Spouse/ Significant Other Smoking Status: Light Smoker (<10/day) - Patient notes a cigarette tobacco usage approximately 3 cigarettes/day. Tobacco Use: Cigarettes Alcohol: None Drugs: None - *Family History Maternal History Items: - - Patient denies any market maternal or paternal family history including heart disease, diabetes or cancer. Paternal History Items: - - Patient denies any market maternal or paternal family history including heart disease, diabetes or cancer. Review of Systems Constitutional: Reports: Anorexia, Malaise, Weakness, Weight Change, Fatigue. Denies: Chills, Fever HEENT: Denies: Head Aches, Sinus Congestion, Sinus Drainage Cardiovascular: Denies: Chest Pain, Palpitations Respiratory: Denies: Cough, Shortness of breath at rest, Sputum production Gastrointestinal: Reports: Abdominal Pain, Diarrhea, Nausea. Denies: Vomiting Genitourinary: Denies: Dysuria Gynecological: Reports: - - Recent vaginal delivery with lessening lochia. Musculoskeletal: Denies: Joint Pain, Joint Tenderness Skin: Denies: Rash, Wounds Neurological: Denies: Numbness, Tingling, Focal weakness Psychiatric: Denies: Anxiety, Depression, Homicidal Ideations, Suicidal Ideations Hematologic/ Lymphatic: Denies: Easy Bruising, Easy Bleeding VTE Information - Inpt Only VTE Present on Admission: No VTE Mechan Device Prophylaxis: SCD's VTE Pharm Prophylaxis ordered?: Yes Patient Problems: Active and Suspected Problems Clostridium difficile colitis (Acute) Subjective: Seated upright in ED bed, fatigued appearance, notes current abdominal discomfort with cramping. Objective: Physical Examination: General: awake, alert, oriented x 3 and cooperative, seated upright in the ED bed in no apparent distress, fatigued appearing. Skin: normal color, turgor, no icterus, cyanosis. HEENT: AT/NC, EOMI, PERRLA, dry MM, no carotid bruits or JVD noted. Lungs: CTA bilaterally, moderate effort, mild decrease BL bases, no rales, ronchi or wheezing. Heart: Regular rate and rhythm; no gallop, rub audible. Abdomen: soft, pes, mild generalized discomfort with palpation, mildly distended, hyperactive bowel sounds, no HSM. Extremities: no cyanosis, clubbing, or edema. Neurological: patient awake, alert, oriented x 3; cognitive function intact; pupils equally reactive to light and accomodation; cranial nerves II-XII grossly normal, moving all 4 extremities, no focal deficits, strength mildly to moderately globally decreased secondary to acute presentation. Psychiatric: affect appears fatigued, no acute evidence of depressive or anxiety feelings. - Physical Exam Vital Signs Temp Pulse Resp BP Pulse Ox 98.0 F 72 18 130/80 H 98 05/16/18 20:06 05/16/18 20:06 05/16/18 20:06 05/16/18 20:06 05/16/18 20:06 Oxygen Delivery Method Room Air Weight: 185 lb 10.067 oz Body Mass Index (BMI) 31.8 Laboratory Tests Past 24 Hrs 05/16/18 05/16/18 05/16/18 19:50 19:50 19:50 WBC 15.0 H RBC 4.55 Hgb 13.4 Hct 41.4 MCV 91.0 MCH 29.5 MCHC 32.4 RDW 14.1 RDW Differential 46.6 H Plt Count 412 MPV 9.6 Immature Gran % (Auto) 0.200 Neut % (Auto) 76.4 H Lymph % (Auto) 15.1 L [place] % (Auto) 8.1 Eos % (Auto) 0.0 Baso % (Auto) 0.2 Absolute Neuts (auto) 11.4 H Absolute Lymphs (auto) 2.25 Total Counted Not Reportable Sodium 140 Potassium 4.3 Chloride 109 H Carbon Dioxide 24.0 Anion Gap 7 BUN 12 Creatinine 0.72 Estim Creat Clear Calc 100.45 Est GFR (MDRD) Af Amer 123 Est GFR (MDRD) Non-Af 102 BUN/Creatinine Ratio 16.7 Glucose 91 Lactic Acid Calcium 8.4 L Urine Color Yellow Urine Clarity Cloudy Urine pH 6.5 Ur Specific [place] 1.020 Urine Protein 30 H Urine Glucose (UA) Normal Urine Ketones 5 H Urine Occult Blood 250 H Urine Nitrite Negative Urine Bilirubin Negative Urine Urobilinogen Normal Ur Leukocyte Esterase 500 H Urine RBC 5-10 SEEN Urine WBC 25-50 SEEN Ur Squamous Epith Cells 0-5 SEEN Urine Bacteria 0 SEEN Urine Mucus 0 SEEN 05/16/18 20:03 WBC RBC Hgb Hct MCV MCH MCHC RDW RDW Differential Plt Count MPV Immature Gran % (Auto) Neut % (Auto) Lymph % (Auto) [place] % (Auto) Eos % (Auto) Baso % (Auto) Absolute Neuts (auto) Absolute Lymphs (auto) Total Counted Sodium Potassium Chloride Carbon Dioxide Anion Gap BUN Creatinine Estim Creat Clear Calc Est GFR (MDRD) Af Amer Est GFR (MDRD) Non-Af BUN/Creatinine Ratio Glucose Lactic Acid 0.6 Calcium Urine Color Urine Clarity Urine pH Ur Specific [place] Urine Protein Urine Glucose (UA) Urine Ketones Urine Occult Blood Urine Nitrite Urine Bilirubin Urine Urobilinogen Ur Leukocyte Esterase Urine RBC Urine WBC Ur Squamous Epith Cells Urine Bacteria Urine Mucus Assessment/Plan All Active Problems Clostridium difficile colitis (Acute) The patient is a 27 y/o F w/ PMHx: History of prior clostridium difficile infection x 2 following prior fistulotomy in the perirectal region noted to have been on Flagyl and oral ciprofloxacin for 2 months duration with onset initial episode following, Recent 05/05/18 with history of resolution of most recent episode in March having been on pulse dose oral vancomycin continued through patient delivery prescribed per her report per Dr. Victoria with attempt to refill her oral vancomycin approximately 1 week prior to current presentation with insurance declining at that time and severely bit of cost with failure to be able to take with onset of severe diarrhea, abdominal cramping, anorexia, nausea following with at least 20 episodes of diarrhea per day initially although lessened currently secondary to minimization of oral intake prompting current ED presentation. (1) Recurrent Clostridium difficile infection: Workup in the ED included T 98, heart rate 104 initially with repeat 72 following hydration, BP 135/92 with repeat 130/80, respiratory rate 16, 98% on room air, CBC with WBC 15, hemoglobin 13.4, platelet 412 with left shift, BMP remarkable for chloride 109, lactic acid 0.6, urinalysis with specific gravity 1.02, protein 30, ketone 5, occult blood 250, negative nitrite, leukocyte esterase 500, RBC 5-10, WBC 25-50 however urine bacteria 0, squamous epithelial cells 0-5, urine culture pending per ED. From review of records 05/15/18 still enteric pathogen negative except noted positive toxigenic C. difficile DNA. Will admit to [facility], continue aggressive hydration, initiate on oral vancomycin, consultation w/ Infectious Disease whom she has not seen prior as extensive pulse dose regimen may be requested given serial recurrence. Anti-emetics, pain regimen PRN. Case management/SW consultation to assist w/ medication cost difficulties. Avoid PPI, H2B given this history. (2) Recent spontaneous vaginal delivery: No peripartum events aside recent onset again diarrhea with positive Clostridium difficile testing, as noted #1 reinitiated on oral vancomycin therapy, normal tapering lochia, recommended continued appropriate follow-up with her [employer] DESIGNER. (3) ? UTI, Low Suspicion: ED initially planned administration rocephin IV x 1 secondary to UA appearance and patient not of mild dysuria; however, given recent vaginal delivery suspect secondary to periurethral small tears, common with delivery, no other urinary symptoms and UA not severe appearing. Discussed with ED and Rocephin was not administered. Want to avoid abx therapy if not absolutely necessary given acute presentation #1. (4) DVT prophylaxis: Low risk, ambulation. Code Visit Inpatient E&M: 69441 Init Hosp L3
--- NOTE | 2018-05-16 21:57 | ED.RN ---
PER DR MOSQUERA PT IS NOT A SEPSIS PT,SO OKAY TO DC.
[2018-05-16 22:30] VITALS: BMI 31.9; BMI 32.0
[2018-05-16 22:45] VITALS: BP 128/85; PULSE 80; RESP 16; TEMP 37.1; O2SAT 97
[2018-05-16 22:52] LABS: Magnesium 2.2 mg/dL (1.6-2.6)
[2018-05-16] MEDS: 0.9% Normal Saline 1,000 ML 125 ML IV (23:29)
[2018-05-17 04:46] VITALS: BP 126/81; PULSE 73; RESP 16; TEMP 36.8; O2SAT 98
[2018-05-17] MEDS: 0.9% Normal Saline 1,000 ML 125 ML IV ×2 (06:25→14:19)
[2018-05-17] MEDS: Dicyclomine 10 MG Capsule PO ×2 (06:26→13:15)
[2018-05-17 06:50] LABS: Absolute Lymphocyte Count 1.99 X10^3/ul (0.83-4.51); Absolute Neutrophil Count 8.3 X10^3/uL (2.0-7.7); Basophil# 0.03 X10^3/uL; Basophil% 0.3 % (0-1); Hematocrit 37.1 % (37-47); Lymphocyte # 1.99 X10^3/ul (4.0); Lymphocyte % 17.7 % (19-41); Mean Corp Hgb Conc 32.3 g/gl (32-36); Mean Corpuscular Volume 92.8 fL (81-99); Mean Platelet Vol. 9.6 fl (6.2-12.0); Neutrophil % 73.8 % (47-70); Platelet Count 338 K/mm3 (150-450); RBC Distribution Width CV 14.3 % (11.6-14.6); RBC Distribution Width SD 48.6 fl (35.1-43.9); White Blood Count 11.2 K/mm3 (4.4-11.0)
[2018-05-17 06:57] LABS: POSITIVE COUNT NO; POSITIVE DIFFERENTIAL NO; POSITIVE MORPHOLOGY NO
[2018-05-17 07:30] LABS: Anion Gap 5 (5-15); BUN 9 mg/dL (7-18); BUN/Creat Ratio 16.1 RATIO (10-20); Calcium,Total 7.6 mg/dL (8.5-10.1); Chloride 115 mmol/L (98-107); Creatinine, Serum 0.56 mg/dL (0.55-1.02); EST Glomerular Filtration Rate 137 mL/min (>60); Est Glom Filt Rate - Afr Amer 165 mL/min (>60); Estimated Creatinine Clearance 129.15 ml/min; Glucose 92 mg/dL (74-106); Potassium 3.9 mmol/L (3.5-5.1); Sodium Level 142 mmol/L (136-145)
[2018-05-17 09:29] VITALS: BP 132/62; PULSE 76; RESP 20; TEMP 37.3; O2SAT 97
--- NOTE | 2018-05-17 10:31 | PN_ITS ---
Patient Problems: Active and Suspected Problems Clostridium difficile colitis (Acute) Vitals/I&O's: Vital Signs Temp Pulse Resp BP Pulse Ox 99.2 F H 76 20 H 132/62 H 97 05/17/18 09:29 05/17/18 09:29 05/17/18 09:29 05/17/18 09:29 05/17/18 09:29 Oxygen Delivery Method Room Air Weight: 84.5 kg Body Mass Index (BMI) 31.9 Intake and Output for Last 24 Hours 05/15/18 05/16/18 05/17/18 23:59 23:59 23:59 Intake Total 292 / 292 1054 / 1054 Balance 292 / 292 1054 / 1054 Laboratory Results 05/16/18 19:50: WBC 15.0 H, RBC 4.55, Hgb 13.4, Hct 41.4, MCV 91.0, MCH 29.5, MCHC 32.4, RDW 14.1, RDW Differential 46.6 H, Plt Count 412, MPV 9.6, Immature Gran % (Auto) 0.200, Neut % (Auto) 76.4 H, Lymph % (Auto) 15.1 L, [place] % (Auto) 8.1, Eos % (Auto) 0.0, Baso % (Auto) 0.2, Absolute Neuts (auto) 11.4 H, Absolute Lymphs (auto) 2.25, Total Counted Not Reportable 05/16/18 19:50: Sodium 140, Potassium 4.3, Chloride 109 H, Carbon Dioxide 24.0, Anion Gap 7, BUN 12, Creatinine 0.72, Estim Creat Clear Calc 100.45, Est GFR (MDRD) Af Amer 123, Est GFR (MDRD) Non-Af 102, BUN/Creatinine Ratio 16.7, Glucose 91, Calcium 8.4 L 05/16/18 19:50: Urine Color Yellow, Urine Clarity Cloudy, Urine pH 6.5, Ur Specific [place] 1.020, Urine Protein 30 H, Urine Glucose (UA) Normal, Urine Ketones 5 H, Urine Occult Blood 250 H, Urine Nitrite Negative, Urine Bilirubin Negative, Urine Urobilinogen Normal, Ur Leukocyte Esterase 500 H, Urine RBC 5-10 SEEN, Urine WBC 25-50 SEEN, Ur Squamous Epith Cells 0-5 SEEN, Urine Bacteria 0 SEEN, Urine Mucus 0 SEEN 05/16/18 19:50: Magnesium 2.2 05/16/18 20:03: Lactic Acid 0.6 05/17/18 05:58: WBC 11.2 H, RBC 4.00 L, Hgb 12.0, Hct 37.1, MCV 92.8, MCH 30.0, MCHC 32.3, RDW 14.3, RDW Differential 48.6 H, Plt Count 338, MPV 9.6, Immature Gran % (Auto) 0.200, Neut % (Auto) 73.8 H, Lymph % (Auto) 17.7 L, [place] % (Auto) 8.0, Eos % (Auto) 0.0, Baso % (Auto) 0.3, Absolute Neuts (auto) 8.3 H, Absolute Lymphs (auto) 1.99, Total Counted Not Reportable 05/17/18 05:58: Sodium 142, Potassium 3.9, Chloride 115 H, Carbon Dioxide 22.0, Anion Gap 5, BUN 9, Creatinine 0.56, Estim Creat Clear Calc 129.15, Est GFR (MDRD) Af Amer 165, Est GFR (MDRD) Non-Af 137, BUN/Creatinine Ratio 16.1, Glucose 92, Calcium 7.6 L Current Medications Acetaminophen (Tylenol) 650 mg PO Q6H PRN PRN PRN Reason: Mild Pain (scale 0-3)/T>100.7 Al Hydroxide/Mg Hydroxide (Mylanta Ii) 30 ml PO Q6H PRN PRN PRN Reason: Gastric burning Dicyclomine HCl (Bentyl) 10 mg PO TIDAC [facility] Last Admin: 05/17/18 06:26 Dose: 10 mg Sodium Chloride () 1,000 mls @ 125 mls/hr IV .Q8H [facility] Last Admin: 05/17/18 06:25 Dose: 125 mls/hr Magnesium Hydroxide (Milk Of Magnesia) 30 ml PO DAILY PRN PRN PRN Reason: Constipation Morphine Sulfate () 2 - 4 mg IV Q3H PRN PRN PRN Reason: Severe Pain (pain scale 6-10) Morphine Sulfate () 1 - 2 mg IV Q4H PRN PRN PRN Reason: Moderate Pain (pain scale 4-5) Ondansetron HCl (Zofran) 4 mg IV Q8H PRN PRN PRN Reason: NAUSEA Oxycodone HCl (Oxyir) 5 mg PO Q4H PRN PRN PRN Reason: Moderate Pain (pain scale 4-5) Sodium Chloride () 5 - 15 ml IV UD PRN PRN Reason: SALINE FLUSH Vancomycin HCl () 125 mg PO Q6 [facility] Last Admin: 05/17/18 06:25 Dose: 125 mg Medical Necessity - Tobacco Use Smoking Status: Light Smoker (<10/day) Tobacco Use: Cigarettes Assessment/Plan All Active Problems Clostridium difficile colitis (Acute)
--- NOTE | 2018-05-17 11:53 | DCINST_ITS ---
- Discharge Diagnoses Current Active Problems: Current Active and Chronic Problems Clostridium difficile colitis (Acute) Obesity (BMI 30.0-34.9) (Chronic) Normal vaginal delivery (Chronic) Hx of Clostridium difficile infection (Chronic) Tobacco use (Chronic) Reason(s) for Visit for Discharge Instructions: Diarrhea You will use the following diet at home:: Regular Your food should be the consistency of: Regular Your liquids should be the consistency of: Regular/Thin Discharge Activity: Return to Normal Activity Additional Instructions: You have to take your vancomycin as prescribed. You h ave to take the vancomycin 4 times a day for 2 weeks, then 2 times a day for 1 week, then daily for 1 week and then every other day for 8 weeks. Maintain strict hand hygiene and precautions. Follow-up with the Infectious disease specialist, Kenna Kay in the [facility] withion a week. Call his office tomorrow at [phone] to make the appointment to see him. Allergies/Adverse Reactions: Allergies No Known Allergies Allergy (Verified 05/05/18 02:33) Medications to take at Discharge Acetaminophen [Tylenol Tablet] 650 mg PO Q6H PRN PRN tablet 05/17/18 Vancomcyin 125mg/5mL PO Liquid 125 mg GT QODAY 56 Days #28 po.syringe 05/17/18 Vancomcyin 125mg/5mL PO Liquid 125 mg PO BID 7 Days #14 po.syringe 05/17/18 Vancomcyin 125mg/5mL PO Liquid 125 mg PO DAILY 7 Days #7 po.syringe 05/17/18 Vancomcyin 125mg/5mL PO Liquid 125 mg PO Q6 14 Days #56 po.syringe 05/17/18 The following prescriptions were given: Vancomcyin 125mg/5mL PO Liquid 125 mg PO Q6 14 Days #56 po.syringe Vancomcyin 125mg/5mL PO Liquid 125 mg PO DAILY 7 Days #7 po.syringe Vancomcyin 125mg/5mL PO Liquid 125 mg GT QODAY 56 Days #28 po.syringe Vancomcyin 125mg/5mL PO Liquid 125 mg PO BID 7 Days #14 po.syringe Primary Care Physician: Kiki Victoria MD [Primary Care Provider] - Please follow up with your Primary Care Physician in: within 1-2 weeks Test Results: Test results from this visit will be discussed in further detail at your follow- up appointment, if applicable. Please Follow Up With: Gustavo Castañeda MD When: within 1 week Proposed Discharge Date: 05/17/18
[2018-05-17 14:15] VITALS: BP 121/60; PULSE 89; RESP 20; TEMP 36.6; O2SAT 97
--- NOTE | 2018-05-17 14:56 | DS.PCM_ITS ---
Discharge Date and Diagnosis - Problem List Patient Problems: Active and Suspected Problems Clostridium difficile colitis (Acute) Date of Admission: 05/16/18 Date of Discharge: 05/17/18 - Primary Discharge Diagnosis Active and Suspected Problems Clostridium difficile colitis (Acute), recurrent Leucocytosis secondary to acute C. diff - Secondary Discharge Diagnosis Chronic Problems Obesity (BMI 30.0-34.9) (Chronic) Normal vaginal delivery (Chronic) Hx of Clostridium difficile infection (Chronic) Tobacco use (Chronic) Hospital Course and Treatment None Operations: None Procedures: None Summary of Care Provided: The patient is a 27 year old F who recently had a baby 11 days ago comes in with complaints of abdominal pain, cramping and diarrhea. Patient states she first had C. difficile virus in August 2017. At that time she had completed 2-month antibiotic therapy for fistulectomy with Cipro and Flagyl. She was treated for 10 days with vancomycin. She had recurrence of her C. difficile in March 2018 as well as . She was managed on a pulse therapy with vancomycin until she delivered her baby on May 05, 2018. She had problems continuing to fill her prescription for vancomycin because of insurance reasons with a co-pay of $5000. She noticed 3 days post that she had abdominal cramps with diarrhea. She presented to her [facility] and was found to have C. difficile. She came in with persistent abdominal pain and cramping. She was found to have stable vitals. Her white cell count was 15,000 but creatinine was normal. She was managed on oral vancomycin as non-severe CDI. Case management was consulted to assist with medication assistance. On discussion with the pharmacy, patient apparently had a miscommunication and insurance had approved a previous prescription for vancomycin and was in the pharmacy. Pharmacy however could only approve vancomycin for 8 days; after which patient has to see infectious disease doctor or primary care doctor to resubmit prescriptions going forward. Discussed with infectious disease doctor, patient will be discharged on a pulsed vancomycin therapy regimen. She will follow-up with infectious disease within 1 week. Patient Problems: Active and Suspected Problems Clostridium difficile colitis (Acute) Subjective: On the day of discharge, patient was seen and examined. She was eager to be discharged. Had had 6 bowel movements since morning and tomorrow was later in the day. Stools were getting a little form. She was able to tolerate a diet. No abdominal cramps. No fevers or chills. - Physical Exam General: Alert, Oriented x3, Cooperative, No apparent distress HEENT: Atraumatic, PERRLA, EOMI, Normocephalic Oral: Moist Mucosa Neck: Supple Lungs: Clear to auscultation, Normal air movement Cardiovascular: Regular rate, Regular Rhythm, Normal S1, Normal S2, No murmurs Abdomen: Bowel Sounds Present, Soft, Non Tender, Non-Distended, No Hepato- splenomegaly Extremities: No edema Skin: No rashes, No breakdown Musculoskeletal: No Tenderness to Palpation of Joints or Extremities Lymphatic: No Cervical, Supraclavicular, or Inguinal Adenopathy Neurological: Cranial nerves II-XII grossly intact, Neuro grossly intact Psych/Mental Status: Normal Affect, Appropriate Vital Signs Temp Pulse Resp BP Pulse Ox 98 F 89 20 H 121/60 H 97 05/17/18 14:15 05/17/18 14:15 05/17/18 14:15 05/17/18 14:15 05/17/18 14:15 Oxygen Delivery Method Room Air Weight: 84.5 kg Body Mass Index (BMI) 31.9 Intake and Output for Last 24 Hours 05/15/18 05/16/18 05/17/18 23:59 23:59 23:59 Intake Total 292 / 292 1981 Balance 292 / 292 1981 Laboratory Tests Past 24 Hrs 05/16/18 05/16/18 05/16/18 19:50 19:50 19:50 WBC 15.0 H RBC 4.55 Hgb 13.4 Hct 41.4 MCV 91.0 MCH 29.5 MCHC 32.4 RDW 14.1 RDW Differential 46.6 H Plt Count 412 MPV 9.6 Immature Gran % (Auto) 0.200 Neut % (Auto) 76.4 H Lymph % (Auto) 15.1 L [place] % (Auto) 8.1 Eos % (Auto) 0.0 Baso % (Auto) 0.2 Absolute Neuts (auto) 11.4 H Absolute Lymphs (auto) 2.25 Total Counted Not Reportable Sodium 140 Potassium 4.3 Chloride 109 H Carbon Dioxide 24.0 Anion Gap 7 BUN 12 Creatinine 0.72 Estim Creat Clear Calc 100.45 Est GFR (MDRD) Af Amer 123 Est GFR (MDRD) Non-Af 102 BUN/Creatinine Ratio 16.7 Glucose 91 Lactic Acid Calcium 8.4 L Magnesium Urine Color Yellow Urine Clarity Cloudy Urine pH 6.5 Ur Specific [place] 1.020 Urine Protein 30 H Urine Glucose (UA) Normal Urine Ketones 5 H Urine Occult Blood 250 H Urine Nitrite Negative Urine Bilirubin Negative Urine Urobilinogen Normal Ur Leukocyte Esterase 500 H Urine RBC 5-10 SEEN Urine WBC 25-50 SEEN Ur Squamous Epith Cells 0-5 SEEN Urine Bacteria 0 SEEN Urine Mucus 0 SEEN 05/16/18 05/16/18 05/17/18 19:50 20:03 05:58 WBC 11.2 H RBC 4.00 L Hgb 12.0 Hct 37.1 MCV 92.8 MCH 30.0 MCHC 32.3 RDW 14.3 RDW Differential 48.6 H Plt Count 338 MPV 9.6 Immature Gran % (Auto) 0.200 Neut % (Auto) 73.8 H Lymph % (Auto) 17.7 L [place] % (Auto) 8.0 Eos % (Auto) 0.0 Baso % (Auto) 0.3 Absolute Neuts (auto) 8.3 H Absolute Lymphs (auto) 1.99 Total Counted Not Reportable Sodium Potassium Chloride Carbon Dioxide Anion Gap BUN Creatinine Estim Creat Clear Calc Est GFR (MDRD) Af Amer Est GFR (MDRD) Non-Af BUN/Creatinine Ratio Glucose Lactic Acid 0.6 Calcium Magnesium 2.2 Urine Color Urine Clarity Urine pH Ur Specific [place] Urine Protein Urine Glucose (UA) Urine Ketones Urine Occult Blood Urine Nitrite Urine Bilirubin Urine Urobilinogen Ur Leukocyte Esterase Urine RBC Urine WBC Ur Squamous Epith Cells Urine Bacteria Urine Mucus 05/17/18 05:58 WBC RBC Hgb Hct MCV MCH MCHC RDW RDW Differential Plt Count MPV Immature Gran % (Auto) Neut % (Auto) Lymph % (Auto) [place] % (Auto) Eos % (Auto) Baso % (Auto) Absolute Neuts (auto) Absolute Lymphs (auto) Total Counted Sodium 142 Potassium 3.9 Chloride 115 H Carbon Dioxide 22.0 Anion Gap 5 BUN 9 Creatinine 0.56 Estim Creat Clear Calc 129.15 Est GFR (MDRD) Af Amer 165 Est GFR (MDRD) Non-Af 137 BUN/Creatinine Ratio 16.1 Glucose 92 Lactic Acid Calcium 7.6 L Magnesium Urine Color Urine Clarity Urine pH Ur Specific [place] Urine Protein Urine Glucose (UA) Urine Ketones Urine Occult Blood Urine Nitrite Urine Bilirubin Urine Urobilinogen Ur Leukocyte Esterase Urine RBC Urine WBC Ur Squamous Epith Cells Urine Bacteria Urine Mucus Discharge Diet: No Restrictions Discharge Activity: Return to Normal Activity Home Medications: Medications to take at Discharge Acetaminophen [Tylenol Tablet] 650 mg PO Q6H PRN PRN tablet 05/17/18 Vancomcyin 125mg/5mL PO Liquid 125 mg GT QODAY 56 Days #28 po.syringe 05/17/18 Vancomcyin 125mg/5mL PO Liquid 125 mg PO BID 7 Days #14 po.syringe 05/17/18 Vancomcyin 125mg/5mL PO Liquid 125 mg PO DAILY 7 Days #7 po.syringe 05/17/18 Vancomcyin 125mg/5mL PO Liquid 125 mg PO Q6 14 Days #56 po.syringe 05/17/18 Following Prescrptions Were Given to Patient: Vancomcyin 125mg/5mL PO Liquid 125 mg PO Q6 14 Days #56 po.syringe Vancomcyin 125mg/5mL PO Liquid 125 mg PO DAILY 7 Days #7 po.syringe Vancomcyin 125mg/5mL PO Liquid 125 mg GT QODAY 56 Days #28 po.syringe Vancomcyin 125mg/5mL PO Liquid 125 mg PO BID 7 Days #14 po.syringe Primary Care Physician: Kiki Victoria MD [Primary Care Provider] - Please follow up with your Primary Care Physician in: within 1-2 weeks Please Follow Up With: Gustavo Castañeda MD When: within 1 week Disposition: Home Minutes spent on discharge:: 45 Patient Condition:: Stable Medical Necessity - Tobacco Use Smoking Status: Light Smoker (<10/day) Tobacco Use: Cigarettes Meaningful Use Info Meaningful Use Diagnoses (Choose all that apply): None applicable Code Visit Inpatient E&M: 47475 Disch Hosp
[2018-05-17 16:22] VITALS: BP 131/76; PULSE 74; RESP 20; TEMP 37.1; O2SAT 100
== END 2018-05-17 16:42 | disposition home or self-care (01) ==
LOC: ED 19:53 → MS3 22:06
PROVIDERS: Admitting Provider Family Medicine; Emergency Provider Emergency Medicine; Family Provider Obstetrics & Gynecology; PCP Obstetrics & Gynecology; Visit Provider Internal Medicine
DX: A04.72 Enterocolitis due to Clostridium difficile, not specified as recurrent (principal); E66.9 Obesity, unspecified; Z68.32 Body mass index [BMI] 32.0-32.9, adult; Z71.3 Dietary counseling and surveillance; F17.210 Nicotine dependence, cigarettes, uncomplicated
CPT/HCPCS: 36415; 80048; 81001; 83605; 83735; 85025; 87086; 87088; 96361; 96374; 96375; 99218; 99283; 99406; J7030; A4216; G0378; J2405

== ENCOUNTER → 2020-04-18 16:05 | Outpatient (CLI) | payer OTHER, SELFPAY ==
[2020-04-18 14:40] VITALS: BMI 30.2
== END ==
PROVIDERS: PCP Family Medicine; Referring Provider Nurse Practitioner Women's Health; Visit Provider Nurse Practitioner Women's Health
DX: B37.3 Candidiasis of vulva and vagina (principal)
CPT/HCPCS: 87070; 87205

== ENCOUNTER → 2020-05-09 12:14 | Outpatient (CLI) | payer OTHER, SELFPAY ==
[2020-05-09 09:56] VITALS: BMI 30.2
[2020-05-12 08:39] LABS: HPV APTIMA, High Risk Negative (Negative)
== END ==
PROVIDERS: PCP Family Medicine; Referring Provider Nurse Practitioner Women's Health; Visit Provider Nurse Practitioner Women's Health
DX: Z12.4 Encounter for screening for malignant neoplasm of cervix (principal)
CPT/HCPCS: 87624; 88175; G0145